=== PATIENT | male | born 2000 | race Hispanic/Latino ===

== ENCOUNTER 2018-04-15 08:45 | Emergency (ER) | payer OTHER ==
[2018-04-15] MEDS ORDERED: ONDANSETRON 4 MG/2 ML VIAL ONE (09:20)
[2018-04-15] MEDS ORDERED: MORPHINE 4 MG/ML SYR ONE (09:20)
[2018-04-15] MEDS ORDERED: NA CHLORIDE 0.9% 1,000 ML ONE ×2 (09:20→11:07)
[2018-04-15 09:43] LABS: Absolute Lymphocytes (CBC) 1.8 K/uL (0.7-4.9); Absolute Monocytes 0.3 K/uL (0.1-1.3); Absolute Neutrophil 3.7 K/uL (1.8-8.0); Basophils % 0.4 % (0-1.3); Eosinophils % 0.7 % (0-4.4); Hematocrit 41.5 % (39.6-49.0); Lymphocytes % 31.2 % (15.3-44.8); MCH 31.5 pg (27.0-35.0); MCV 90.6 fL (80-100); MPV 10.1 fL (7.6-11.3); Monocytes % 5.6 % (3.3-12.3); RBC Red Blood Cell Count 4.58 M/uL (4.33-5.43)
[2018-04-15 09:51] LABS: ALT/SGPT 27 U/L (12-78); AST/SGOT 13 U/L (15-37); Albumin 3.9 g/dL (3.4-5.0); Alkaline Phosphatase 112 U/L (45-117); BUN Blood Urea Nitrogen 7 mg/dL (7-18); Bicarbonate 28 mmol/L (21-32); Bilirubin Direct 0.1 mg/dL (0-0.2); Bilirubin Total 0.4 mg/dL (0.2-1.0); Glucose Level 105 mg/dL (74-106); Lipase 59 U/L (73-393); Potassium 4.2 mmol/L (3.5-5.1); Protein, Total 7.2 g/dL (6.4-8.2); Sodium Level 139 mmol/L (136-145)
--- NOTE | 2018-04-15 10:18 | RAD REPORT ---
EXAM DESCRIPTION: RAD - Chest Single View - 04/15/2018 9:33 am CLINICAL HISTORY: Abdominal distention COMPARISON: May 2008 TECHNIQUE: AP portable chest image was obtained 0924 hours . FINDINGS: Lungs are clear. Heart size is upper normal. Vasculature within normal limits. Heart size is stable. No measurable pleural effusion and no pneumothorax. No acute bony abnormality seen. No acu te aortic findings suspected. IMPRESSION: No acute cardiopulmonary process. No suspicious change from comparison.
--- NOTE | 2018-04-15 11:47 | RAD REPORT ---
EXAM DESCRIPTION: CT - Angio Aorta For Dissection - 04/15/2018 11:26 am CLINICAL HISTORY: Abdominal pain, abdominal distention, back pain COMPARISON: None. TECHNIQUE: Dynamically enhanced 3 mm thick images of the chest, abdomen, and upper pelvis were obtai andrey during administration of approximately 150mL Isovue 370 IV contrast. Sagittal and coronal reconst ruction images were generated using MIP and reviewed. Exam utilizes a protocol to evaluate entire cou rse of the aorta. All CT scans are performed using dose optimization technique as appropriate and may include automated exposure control or mA/KV adjustment according to patient size. FINDINGS: Aorta is normal in diameter with no dissection or other acute aortic findings. Reconstruct ion images show no significant findings. Pulmonary arteries are normal as well. No cardiomegaly, pericardial thickening or pericardial effusio n. No mass or infiltrate in the lung parenchyma. No pleural thickening, pleural effusion or pneumothorax . No abnormal mediastinal or hilar mass or lymphadenopathy seen. No chest wall mass or abnormal axillar y lymphadenopathy. Celiac, SMA and renal arteries show no suspicious findings. Patient has normal variant retroaortic le ft renal vein. Solid abdominal viscera and bowel show no significant findings. The appendix is ident ified and normal. Colon is mostly decompressed. Mild mucosal level inflammatory bowel changes can be occult on CT imaging. A few small mesenteric lymph nodes are seen centrally and in the right lower qu adrant. No mass or abnormal lymphadenopathy. No free air, free fluid or inflammatory stranding. No u rinary bladder abnormality. Prostate gland and seminal vesicles are normal range. IMPRESSION: Negative CT scan of the aorta. No appendicitis findings. Patient has a few small mesenteric lymph nodes that could indicate mesenter ic adenitis or a mild nonspecific enteritis.
--- NOTE | 2018-04-15 12:22 | ER ---
Nurse's Notes [facility] Name: Keny Kyle Age: 17 yrs Sex: Male : 2000 Arrival Date: 04/15/2018 Time: 08:50 Bed 7 Private MD: None, None Diagnosis: Abdominal tenderness;Constipation;Nonspecific mesenteric lymphadenitis Presentation: 04/15 08:57 Presenting complaint: Patient states: RUQ pain that began Sunday. Pt states "I was aa5 constipated so I took a laxative and I had diarrhea Sunday and Sunday and yesterday I had a normal bowel movement but I am still hurting". Pt denies Nausea and vomiting. 08:57 Transition of care: patient was not received from another setting of care. Onset of aa5 symptoms was March 2018. Risk Assessment: Do you want to hurt yourself or someone else? Patient reports no desire to harm self or others. Initial Sepsis Screen: Does the patient meet any 2 criteria? No. Patient's initial sepsis screen is negative. Does the patient have a suspected source of infection? No. Patient's initial sepsis screen is negative. Care prior to arrival: None. 08:57 Method Of Arrival: Ambulatory aa5 08:57 Acuity: MARI 3 aa5 Historical: - Allergies: 09:00 No Known Allergies; aa5 - Home Meds: 09:00 None [Active]; aa5 - PMHx: 09:00 None; aa5 - PSHx: 09:00 None; aa5 - Immunization history:: Adult Immunizations up to date. - Social history:: Smoking status: Patient/guardian denies using tobacco. - Ebola Screening: : No symptoms or risks identified at this time. - Family history:: not pertinent. Screenin:02 Abuse screen: Denies threats or abuse. Nutritional screening: No deficits noted. aa5 Tuberculosis screening: No symptoms or risk factors identified. Fall Risk None identified. Assessment: 09:03 General: Appears comfortable, Behavior is calm, cooperative. Pain: Complains of pain in aa5 right upper quadrant Pain does not radiate. Pain currently is 8 out of 10 on a pain scale. Quality of pain is described as aching, sharp, Pain began 2-3 days ago. Is intermittent. Neuro: Level of Consciousness is awake, alert, obeys commands, Oriented to person, place, time, situation. Cardiovascular: Heart tones S1 S2 present Rhythm is regular. Respiratory: Airway is patent Respiratory effort is even, unlabored, Respiratory pattern is regular, symmetrical. GI: Abdomen is round non-distended, Last BM was April 14, 2018. Bowel sounds present X 4 quads. Abd is soft X 4 quads Abdomen is tender to palpation in right upper quadrant Patient currently denies nausea, vomiting. : No signs and/or symptoms were reported regarding the genitourinary system. EENT: No signs and/or symptoms were reported regarding the EENT system. Derm: Skin is pink, warm \\T\\ dry. Musculoskeletal: Range of motion: intact in all extremities. 09:10 Reassessment: Pt's care will be continued by Luis Manuel Calderon RN. aa5 09:31 Reassessment: xray at bedside at this time. sg 09:43 Reassessment: ultrasound at bedside at this time. sg 10:50 Reassessment: Patient appears in no apparent distress at this time. Patient and/or sg family updated on plan of care and expected duration. Pain level reassessed. Patient is alert, oriented x 3, equal unlabored respirations, skin warm/dry/pink. strict bed rest precautions implemented, pt and pt family/friends educated, pt and pt family/friends report understanding. Vital Signs: 08:59 BP 140 / 72; Pulse 53; Resp 18 S; Temp 98.6(O); Pulse Ox 100% on R/A; Weight 116.98 kg aa5 (M); Height 5 ft. 9 in. (175.26 cm) (R); Pain 8/10; 12:19 BP 108 / 55; Pulse 66; Resp 20; Temp 97.9; Pulse Ox 100% ; lt1 08:59 Body Mass Index 38.08 (116.98 kg, 175.26 cm) aa5 ED Course: 08:50 Patient arrived in ED. mr 08:51 None, None is Private Physician. mr 08:59 Arm band placed on Patient placed in an exam room, on a stretcher. aa5 08:59 Patient has correct armband on for positive identification. Placed in gown. Bed in low aa5 position. Call light in reach. Side rails up X 1. 09:00 Vickey Paul MD is Attending Physician. [facility] 09:02 Triage completed. aa5 09:09 Primary Nurse role handed off by Claudia Aldana RN sg 09:09 Luis Manuel Calderon, RN is Primary Nurse. sg 09:10 Missed attempt(s): 20 gauge in right antecubital area. Bleeding controlled, band aid sg applied, catheter tip intact. 09:15 Initial lab(s) drawn, by me, sent to lab. Inserted saline lock: 20 gauge in left sg antecubital area, using aseptic technique. Blood collected. 09:31 Chest Single View XRAY In Process Unspecified. EDMS 09:51 US Abdomen Limited In Process Unspecified. EDMS 10:05 CT pt finished PO contrast, spoke with Rocio. sg 11:[address] Scan. sg 11:[address] mw3 11:27 CT Aorta for Dissection In Process Unspecified. EDMS 12:21 Samantha Saucedo MD is Referral Physician. petrona 13:20 No provider procedures requiring assistance completed. IV discontinued, intact, sg bleeding controlled, No redness/swelling at site. Pressure dressing applied. Administered Medications: 09:00 Drug: NS 0.9% 1000 ml Route: IV; Rate: 1 bolus; Site: left antecubital; sg 09:20 Drug: morphine 4 mg Route: IVP; Site: left antecubital; sg 09:20 Drug: Zofran 4 mg Route: IVP; Site: left antecubital; sg 11:04 Drug: NS 0.9% 1000 ml Route: IV; Rate: 1 bolus; Site: left antecubital; sg Outcome: 12:21 Discharge ordered by MD. petrona 13:20 Discharged to home ambulatory, with family. sg 13:20 Condition: good 13:20 Discharge instructions given to patient, Instructed on discharge instructions, follow up and referral plans. safety practices, Demonstrated understanding of instructions, follow-up care, medications, Prescriptions given X 2. 13:22 Patient left the ED. ss Signatures: Dispatcher [employer] EDMS Luis Manuel Calderon, Vickey Garces RN, MD MD cha Rivera, Mary mr Claudia Aldana, JURGEN SEAMAN aa5 Lucero New RN RN Hailee Pinto mw3 Sara, Allison lt1 Corrections: (The following items were deleted from the chart) 09:29 09:20 Zofran 4 mg IVP in right antecubital sg sg 16:20 08:59 Claudia Aldana, RN is Primary Nurse. aa5 aa5
--- NOTE | 2018-04-15 12:22 | EDPHYS ---
Physician Documentation [facility] Name: Keny Kyle Age: 17 yrs Sex: Male : 2000 Arrival Date: 04/15/2018 Time: 08:50 Bed 7 Private MD: None, None ED Physician Vickey Paul HPI: 04/15 09:05 This 17 yrs old Male presents to ER via Ambulatory with complaints of Flank petrona Pain. 09:05 The patient complains of pain in the right mid back. The pain does not radiate. petrona 09:06 The patient presents with abdominal pain in the upper abdomen, abdominal distention in petrona the upper abdomen. Onset: The symptoms/episode began/occurred 2 day(s) ago. Onset: The symptoms/episode began/occurred 2 day(s) ago. Modifying factors: The symptoms are alleviated by remaining still, the symptoms are aggravated by movement, palpation/percussion, food/fluids. The symptoms do not radiate. Associated signs and symptoms: The patient has no apparent associated signs or symptoms. Historical: - Allergies: 09:00 No Known Allergies; aa5 - Home Meds: 09:00 None [Active]; aa5 - PMHx: 09:00 None; aa5 - PSHx: 09:00 None; aa5 - Immunization history:: Adult Immunizations up to date. - Social history:: Smoking status: Patient/guardian denies using tobacco. - Ebola Screening: : No symptoms or risks identified at this time. - Family history:: not pertinent. ROS: 09:06 Constitutional: Negative for fever, chills, and weight loss, Eyes: Negative for injury, petrona pain, redness, and discharge, ENT: Negative for injury, pain, and discharge, Neck: Negative for injury, pain, and swelling, Cardiovascular: Negative for chest pain, palpitations, and edema, Respiratory: Negative for shortness of breath, cough, wheezing, and pleuritic chest pain, Back: Negative for injury and pain, : Negative for injury, bleeding, discharge, and swelling, MS/Extremity: Negative for injury and deformity, Skin: Negative for injury, rash, and discoloration, Neuro: Negative for headache, weakness, numbness, tingling, and seizure, Psych: Negative for depression, anxiety, suicide ideation, homicidal ideation, and hallucinations, Allergy/Immunology: Negative for hives, rash, and allergies, Endocrine: Negative for neck swelling, polydipsia, polyuria, polyphagia, and marked weight changes, Hematologic/Lymphatic: Negative for swollen nodes, abnormal bleeding, and unusual bruising. 09:06 Abdomen/GI: Positive for abdominal pain, of the right upper quadrant. Exam: 09:06 Constitutional: This is a well developed, well nourished patient who is awake, alert, petrona and in no acute distress. Head/Face: Normocephalic, atraumatic. Eyes: Pupils equal round and reactive to light, extra-ocular motions intact. Lids and lashes normal. Conjunctiva and sclera are non-icteric and not injected. Cornea within normal limits. Periorbital areas with no swelling, redness, or edema. ENT: Nares patent. No nasal discharge, no septal abnormalities noted. Tympanic membranes are normal and external auditory canals are clear. Oropharynx with no redness, swelling, or masses, exudates, or evidence of obstruction, uvula midline. Mucous membranes moist. Neck: Trachea midline, no thyromegaly or masses palpated, and no cervical lymphadenopathy. Supple, full range of motion without nuchal rigidity, or vertebral point tenderness. No Meningismus. Chest/axilla: Normal chest wall appearance and motion. Nontender with no deformity. No lesions are appreciated. Cardiovascular: Regular rate and rhythm with a normal S1 and S2. No gallops, murmurs, or rubs. Normal PMI, no JVD. No pulse deficits. Abdomen/GI: Soft, non-tender, with normal bowel sounds. No distension or tympany. No guarding or rebound. No evidence of tenderness throughout. Back: No spinal tenderness. No costovertebral tenderness. Full range of motion. Male : Normal genitalia with no discharge or lesions. Skin: Warm, dry with normal turgor. Normal color with no rashes, no lesions, and no evidence of cellulitis. MS/ Extremity: Pulses equal, no cyanosis. Neurovascular intact. Full, normal range of motion. Neuro: Awake and alert, GCS 15, oriented to person, place, time, and situation. Cranial nerves II-XII grossly intact. Motor strength 5/5 in all extremities. Sensory grossly intact. Cerebellar exam normal. Normal gait. Psych: Awake, alert, with orientation to person, place and time. Behavior, mood, and affect are within normal limits. 09:06 Abdomen/GI: Inspection: distension, Bowel sounds: normal, Palpation: mild abdominal tenderness, in the epigastric area and right upper quadrant, Liver: no appreciated palpable abnormalities, Hernia: not appreciated. 09:54 Musculoskeletal/extremity: DVT Exam: No signs of deep vein thrombosis. no pain, no petrona swelling, no tenderness, negative Homans' sign noted on exam, no appreciated bluish discoloration, no erythema, no increased warmth. Vital Signs: 08:59 BP 140 / 72; Pulse 53; Resp 18 S; Temp 98.6(O); Pulse Ox 100% on R/A; Weight 116.98 kg aa5 (M); Height 5 ft. 9 in. (175.26 cm) (R); Pain 8/10; 12:19 BP 108 / 55; Pulse 66; Resp 20; Temp 97.9; Pulse Ox 100% ; lt1 08:59 Body Mass Index 38.08 (116.98 kg, 175.26 cm) aa5 MDM: 09:00 Patient medically screened. [facility] 09:11 Data reviewed: vital signs, nurses notes, lab test result(s), radiologic studies, plain petrona films, ultrasound. 04/15 09:05 Order name: Basic Metabolic Panel; Complete Time: 09:53 [facility] 04/15 09:05 Order name: CBC with Diff; Complete Time: 09:53 [facility] 04/15 09:05 Order name: Creatinine for Radiology; Complete Time: 09:53 [facility] 04/15 09:05 Order name: Hepatic Function; Complete Time: 09:53 [facility] 04/15 09:05 Order name: Lipase; Complete Time: 09:53 [facility] 04/15 09:54 Order name: D-Dimer; Complete Time: 12:17 [facility] 04/15 09:05 Order name: Chest Single View XRAY; Complete Time: 10:44 [facility] 04/15 09:05 Order name: US Abdomen Limited [facility] 04/15 11:00 Order name: CT Aorta for Dissection; Complete Time: 12:17 [facility] 04/15 09:05 Order name: IV Saline Lock; Complete Time: 09:29 [facility] 04/15 09:05 Order name: Labs collected and sent; Complete Time: 09:29 [facility] Administered Medications: 09:00 Drug: NS 0.9% 1000 ml Route: IV; Rate: 1 bolus; Site: left antecubital; sg 09:20 Drug: morphine 4 mg Route: IVP; Site: left antecubital; sg 09:20 Drug: Zofran 4 mg Route: IVP; Site: left antecubital; sg 11:04 Drug: NS 0.9% 1000 ml Route: IV; Rate: 1 bolus; Site: left antecubital; sg Disposition: 04/15/18 12:21 Discharged to Home. Impression: Abdominal tenderness, Constipation, Nonspecific mesenteric lymphadenitis. - Condition is Stable. - Discharge Instructions: Abdominal Pain, Adult, Constipation, Adult, Abdominal Pain, Adult, [id number]. - Prescriptions for Bentyl 20 mg Oral Tablet - take 1 tablet by ORAL route every 6 hours As needed; 20 tablet. Pepcid 20 mg Oral Tablet - take 1 tablet by ORAL route every 12 hours for 10 days; 20 tablet. - Work release form, Medication Reconciliation Form, Thank You Letter, Antibiotic Education, Prescription Opioid Use form. - Follow up: Private Physician; When: 2 - 3 days; Reason: Recheck today's complaints, Continuance of care, Re-evaluation by your physician. Follow up: Samantha Saucedo; When: 2 - 3 days; Reason: Recheck today's complaints, Re-evaluation by your physician. - Problem is new. - Symptoms have improved. Signatures: Dispatcher [employer] EDWY Luis Manuel Calderon, RN RN Vickey Palma MD MD cha Calderon, Audri, RN RN aa5 Lucero New RN RN ss Corrections: (The following items were deleted from the chart) 11:08 09:54 Abdomen Pelvis W Con+CT.RAD.BRZ ordered. [facility] 13:22 12:21 04/15/2018 12:21 Discharged to Home. Impression: Abdominal tenderness; ss Constipation; Nonspecific mesenteric lymphadenitis. Condition is Stable. Discharge Instructions: Abdominal Pain, Adult, Constipation, Adult, Abdominal Pain, Adult, [id number]. Prescriptions for Bentyl 20 mg Oral Tablet - take 1 tablet by ORAL route every 6 hours As needed; 20 tablet, Pepcid 20 mg Oral Tablet - take 1 tablet by ORAL route every 12 hours for 10 days; 20 tablet. and Forms are Medication Reconciliation Form, Thank You Letter, Antibiotic Education, Prescription Opioid Use. Follow up: Private Physician; When: 2 - 3 days; Reason: Recheck today's complaints, Continuance of care, Re-evaluation by your physician. Follow up: Samantha Saucedo; When: 2 - 3 days; Reason: Recheck today's complaints, Re-evaluation by your physician. Problem is new. Symptoms have improved. petrona
[2018-04-15 13:37] VITALS: O2SAT 100
[2018-04-15 13:38] VITALS: BP 108/55; TEMP 97.9
== END 2018-04-15 13:22 | disposition home or self-care (01) ==
LOC: ER 08:45
DX: I88.0 Nonspecific mesenteric lymphadenitis (principal); K59.00 Constipation, unspecified
CPT/HCPCS: 36415; 71045; 71275; 74175; 76705; 80048; 80076; 83690; 85025; 85379; 96374; 96375; 99284; J2405; J7030; Q9967

== ENCOUNTER 2019-11-26 19:05 | Emergency (ER) | payer OTHER ==
[2019-11-26] MEDS ORDERED: SILVER SULFADIAZINE 1% 25 GM TOP ONE (20:17)
[2019-11-26] MEDS ORDERED: FENTANYL CITR 100 MCG/2 ML ONE (20:19)
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
--- NOTE | 2019-11-26 20:39 | EDPHYS ---
Physician Documentation [facility] Name: Keny Kyle Age: 19 yrs Sex: Male : 2000 Arrival Date: 11/26/2019 Time: 19:10 Bed 25 Private MD: ED Physician Az De Guzman HPI: 11/25 21:46 This 19 yrs old Male presents to ER via Wheelchair with complaints of Foot snw Injury, lots of pain. 21:46 The patient presents with a crush injury, from a heavy object, an injury. The snw complaints affect the left lateral ankle and lateral aspect of left foot. Context: [place], the patient is not able to bear weight, the patient is not able to ambulate. Onset: The symptoms/episode began/occurred suddenly, just prior to arrival. Associated signs and symptoms: The patient has no apparent associated signs or symptoms. Severity of symptoms: At their worst the symptoms were moderate, severe. The patient has not experienced similar symptoms in the past. The patient has not recently seen a physician. Historical: - Allergies: 19:35 No Known Allergies; ca1 - Home Meds: 19:35 None [Active]; ca1 - PMHx: 19:35 None; ca1 - PSHx: 19:35 None; ca1 - Immunization history:: Adult Immunizations up to date, Last tetanus immunization: unknown. - Social history:: Smoking status: Patient denies any tobacco usage or history of. ROS: 21:18 Constitutional: Negative for fever, chills, and weight loss, Eyes: Negative for injury, snw pain, redness, and discharge, ENT: Negative for injury, pain, and discharge, Neck: Negative for injury, pain, and swelling, Cardiovascular: Negative for chest pain, palpitations, and edema, Respiratory: Negative for shortness of breath, cough, wheezing, and pleuritic chest pain, Abdomen/GI: Negative for abdominal pain, nausea, vomiting, diarrhea, and constipation, Back: Negative for injury and pain, : Negative for injury, bleeding, discharge, and swelling, Skin: Negative for injury, rash, and discoloration, Neuro: Negative for headache, weakness, numbness, tingling, and seizure. 21:18 MS/extremity: Positive for injury or acute deformity, decreased range of motion, pain, swelling, of the left foot and left ankle. Exam: 21:14 Constitutional: This is a well developed, well nourished patient who is awake, alert, snw and in no acute distress. Head/Face: Normocephalic, atraumatic. Eyes: Pupils equal round and reactive to light, extra-ocular motions intact. Lids and lashes normal. Conjunctiva and sclera are non-icteric and not injected. Cornea within normal limits. Periorbital areas with no swelling, redness, or edema. ENT: Nares patent. No nasal discharge, no septal abnormalities noted. Tympanic membranes are normal and external auditory canals are clear. Oropharynx with no redness, swelling, or masses, exudates, or evidence of obstruction, uvula midline. Mucous membranes moist. Neck: Trachea midline, no thyromegaly or masses palpated, and no cervical lymphadenopathy. Supple, full range of motion without nuchal rigidity, or vertebral point tenderness. No Meningismus. Chest/axilla: Normal chest wall appearance and motion. Nontender with no deformity. No lesions are appreciated. Cardiovascular: Regular rate and rhythm with a normal S1 and S2. No gallops, murmurs, or rubs. Normal PMI, no JVD. No pulse deficits. Respiratory: Lungs have equal breath sounds bilaterally, clear to auscultation and percussion. No rales, rhonchi or wheezes noted. No increased work of breathing, no retractions or nasal flaring. Abdomen/GI: Soft, non-tender, with normal bowel sounds. No distension or tympany. No guarding or rebound. No evidence of tenderness throughout. Back: No spinal tenderness. No costovertebral tenderness. Full range of motion. Neuro: Awake and alert, GCS 15, oriented to person, place, time, and situation. Cranial nerves II-XII grossly intact. Motor strength 5/5 in all extremities. Sensory grossly intact. Cerebellar exam normal. Normal gait. Psych: Awake, alert, with orientation to person, place and time. Behavior, mood, and affect are within normal limits. 21:14 Skin: Appearance: normal except for affected area, injury, abrasion(s), small abrasion noted, of the left ankle, contusion(s), that are deep, of the left foot. Vital Signs: 19:33 BP 134 / 103; Pulse 92; Resp 15 S; Temp 99.1(TE); Pulse Ox 99% on R/A; Weight 120.2 kg ca1 (R); Height 5 ft. 10 in. (177.80 cm) (R); Pain 10/10; 21:02 BP 146 / 88; Pulse 70; Resp 18; Temp 99(TE); Pulse Ox 98% ; Pain 9/10; ks7 19:33 Body Mass Index 38.02 (120.20 kg, 177.80 cm) ca1 MDM: 20:21 Patient medically screened. snw 21:11 Data reviewed: vital signs, nurses notes. Data interpreted: Pulse oximetry: on room air snw is 98 %. Interpretation: normal. Counseling: I had a detailed discussion with the patient and/or guardian regarding: the historical points, exam findings, and any diagnostic results supporting the discharge/admit diagnosis, radiology results, the need for outpatient follow up, to return to the emergency department if symptoms worsen or persist or if there are any questions or concerns that arise at home. Special discussion: I have referred the patient to see his PCP for further evaluation of high blood pressure. Based on the history and exam findings, there is no indication for further emergent testing or inpatient evaluation. I discussed with the patient/guardian the need to see the orthopedic surgeon for further evaluation of the symptoms. I discussed with the patient/guardian the need to see the primary care provider for further evaluation of the symptoms. ED course: risk for compartment syndrome discussed. Pt voices understanding. 11/25 19:38 Order name: Foot Left 3 View XRAY; Complete Time: 21:11 ca1 11/25 19:38 Order name: Ankle Left 3 View XRAY; Complete Time: 21:11 ca1 11/25 19:51 Order name: Wound Care; Complete Time: 22:20 snw 11/25 20:25 Order name: Posterior Orthoglass Ankle Splint; Complete Time: 22:20 snw 11/25 20:25 Order name: Crutches; Complete Time: 22:20 snw 11/25 20:25 Order name: Crutch Training; Complete Time: 22:19 snw Administered Medications: 20:10 Drug: fentaNYL (PF) 50 mcg Route: IVP; Site: left antecubital; ls4 20:30 Follow up: Response: No adverse reaction; Marked relief of symptoms ls4 20:10 Drug: Silvadene Cream 1 % 1 application Route: Topical; Site: affected area; ls4 21:01 Drug: [place] 10 mg-325 mg 1 tabs Route: PO; ks7 21:28 Follow up: Response: No adverse reaction; Marked relief of symptoms ls4 21:01 Drug: Motrin 800 mg Route: PO; ks7 21:20 Follow up: Response: No adverse reaction ls4 23:24 Not Given (Patient Refused): Tetanus-Diphtheria Toxoid Adult 0.5 ml IM once ls4 Disposition: 11/26 00:02 Co-signature as Attending Physician, Az De Guzman MD. rn Disposition: 11/26/19 20:38 Discharged to Home. Impression: Fracture of unspecified metatarsal bone(s), left foot, Displaced fracture of navicular [scaphoid] of left foot. - Condition is Stable. - Discharge Instructions: Compartment Syndrome of the Foot, Foot Contusion, Crutch Use, Foot Sprain, Metatarsal Fracture, RICE for Routine Care of Injuries, Tarsal Navicular Fracture, Cryotherapy, Crush Injury of the Foot. - Prescriptions for Mobic 7.5 mg Oral Tablet - take 1 tablet by ORAL route every 12 hours take with food; 20 tablet. Ultram 50 mg Oral Tablet - take 1 tablet by ORAL route every 6 hours As needed; 12 tablet. - Medication Reconciliation Form, Thank You Letter, Antibiotic Education, Prescription Opioid Use form. - Follow up: Luis Manuel Aaron MD; When: 1 - 2 days; Reason: Recheck today's complaints, Continuance of care. Follow up: Emergency Department; When: As needed; Reason: Worsening of condition. - Notes: Return immediately for any circulatory concern of left foot/ankle Signatures: Dispatcher [employer] EDMS Luis Manuel Calderon RN Zelda Copeland, RECONCILIATION MANAGER-C RECONCILIATION MANAGER-Csnw Az De Guzman MD MD rn Stewart, Lisa, RN RN ls4 Ilsa Hall RN RN ca1 Songcuan, Kathleen, RN RN ks7 Corrections: (The following items were deleted from the chart) 11/25 23:26 20:38 11/26/2019 20:38 Discharged to Home. Impression: Fracture of unspecified sg metatarsal bone(s), left foot; Displaced fracture of navicular [scaphoid] of left foot. Condition is Stable. Forms are Medication Reconciliation Form, Thank You Letter, Antibiotic Education, Prescription Opioid Use. Follow up: Luis Manuel Aaron; When: 1 - 2 days; Reason: Recheck today's complaints, Continuance of care. Follow up: Emergency Department; When: As needed; Reason: Worsening of condition. snw
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
--- NOTE | 2019-11-26 21:03 | RAD REPORT ---
EXAM DESCRIPTION: RAD - Ankle Left 3 View - 11/26/2019 8:37 pm CLINICAL HISTORY: Pain;Swelling COMPARISON: No comparisons FINDINGS: Distal tibia and fibula are intact. Tibiotalar joint space is normal. Suspected fracture o f the medial margin of the navicular bone is present, detailed further on the foot report. Prominent swelling is present in the anterior and medial soft tissues of the foot and ankle. No forei gn body seen. No joint space narrowing. IMPRESSION: Prominent anterior and medial soft tissue swelling with no fracture at the ankle joint. Suspected fracture of the medial margin navicular bone.
[2019-11-26] MEDS ORDERED: IBUPROFEN 400 MG TAB ONE (21:08)
[2019-11-26] MEDS ORDERED: HYDROCODONE/APAP 10/325 TAB ONE (21:08)
[2019-11-26 23:35] VITALS: BP 146/88; TEMP 99; O2SAT 98
[2019-11-30] MEDS ORDERED: FENTANYL CITR 100 MCG/2 ML ONE (15:18)
[2019-11-30] MEDS ORDERED: HYDROMORPHONE HCL 1 MG/ML INJ ONE (16:56)
== END 2019-11-26 23:26 | disposition home or self-care (01) ==
LOC: ER 19:05
PROC: 2W3RX1Z Immobilization of Left Lower Leg using Splint (ICD-10-PCS; principal; 2019-11-26)
DX: S92.252A Displaced fracture of navicular [scaphoid] of left foot, initial encounter for closed fracture (principal); S92.302A Fracture of unspecified metatarsal bone(s), left foot, initial encounter for closed fracture; X58.XXXA Exposure to other specified factors, initial encounter; Y93.89 Activity, other specified; Y92.832 Beach as the place of occurrence of the external cause
CPT/HCPCS: 73630; 73610; 96374; 99284; 29515; J3010

== ENCOUNTER 2020-03-20 20:18 | Emergency (ER) | payer OTHER ==
--- OUTSIDE RECORDS SUMMARY | 2020-03-20 20:20 | XMS REPORT | Continuity of Care Document ---
:2000 Author Organization [facility] t Address [address] [place] [address] Care Team Providers Name Role Phone Samia Sequeira MD Attending Clinician Problems This patient has no known problems. Allergies, Adverse Reactions, Alerts This patient has no known allergies or adverse reactions. Medications This patient has no known medications. Procedures This patient has no known procedures. Encounters Start End Encounter Admission Attending Care Care Encounter Source Date/Time Date/Time Type Type Clinicians Facility Department ID 2020-02-12 2020-02-12 [facility] [id number] 09:48:20 23:59:00 Encounter Lei Gracia Girl [employer] Dress [id number] Surgical [id number] Specialti [id number] es [address] 2020-02-12 2020-02-12 Office [facility] [id number] 09:17:13 09:57:42 Visit Lei [facility] [id number] Surgical [id number] Specialti [id number] es [address] [place] Results This patient has no known results.
--- OUTSIDE RECORDS SUMMARY | 2020-03-20 20:21 | XMS REPORT | Summary of Care ---
:2000 Author Organization [facility] Address [address] [place] [address] Care Team Providers Name Role Phone Pcp, Does Not Have A Primary Care Provider Reason for Referral Radiology Services (Routine) Status Reason Specialty Diagnoses / Referred By Referred To Procedures Contact Contact New Request Diagnostic Diagnoses Closed avulsion fracture of navicular bone of foot, left, initial encounter Lei Sequeira Radiology Procedures XR FOOT <3 VW LEFT MD Samia [address] [place] [address] [place] [address] Reason for Visit Reason Comments Follow-up Closed avulsion fx of navicu lar bone of left foot Encounter Details Date Type Department Care Team Description 02/12/2020 Office Visit [facility] Orthopaedic Lei Sequeira losed avulsion Surgery- Polly Gracia MD fracture of navicular [address], [address] bone of foot, left, [address] [place] [address] [place], [place] (Primary Dx) [phone] Allergies No Known Allergiesdocumented as of this encounter (statuses as of 02/12/2020) Medications Medication Sig Dispensed Refills Start Date End Date Status meloxicam 7.5 mg TOME VENESSA TABLETA 0 11/27/2019 Active tablet POR V A ORAL EVERY 12 HOURS TAKE WITH FOOD traMADol 50 mg tablet TOME VENESSA TABLETA 0 11/27/2019 Active POR V A ORAL EVERY 6 HOURS NEEEDED acetaminophen-codeine Take 1 tablet by 40 tablet 0 12/02/2019 Active (TYLENOL-CODEINE #3) mouth every 4 300-30 mg (four) hours as tabletIndications: needed for Pain acute pain (scale 4-6) or Pain (scale 7-10). Indications: acute pain documented as of this encounter (statuses as of 02/12/2020) Active Problems No known active problemsdocumented as of this encounter (statuses as of 02/12/2020) Social History Tobacco Use Types Packs/Day Years Used Date Unknown If Ever Smoked Smokeless Tobacco: Never Used Comments: weed Sex Assigned at Date Recorded Not on file COVID-19 Exposure Response Date Recorded In the last month, have you been in contact with No / Unsure 02/12/2020 9:19 AM CDT someone who was confirmed or suspected to have Coronavirus / COVID-19? documented as of this encounter Last Filed Vital Signs Vital Sign Reading Time Taken Comments Blood Pressure 129/84 02/12/2020 9:27 AM CDT Pulse 88 02/12/2020 9:24 AM CDT Temperature - - Respiratory Rate - - Oxygen Saturation - - Inhaled Oxygen Concentration - - Weight 122.5 kg (270 lb) 02/12/2020 9:24 AM CDT Height 175.3 cm (5' 9") 02/12/2020 9:24 AM CDT Body Mass Index 39.87 02/12/2020 9:24 AM CDT documented in this encounter Progress Notes Lei Sequeira MD - 02/12/2020 9:30 AM CDT Cc: Chief Complaint Patient presents with Follow-up Closed avulsion fx of navicular bone of left foot Follow up Closed avulsion fx of navicular bone of the left foot DOI 11/26/2019 Keny Kyle is a 19 year old male. FOLLOW-UP closed avulsion fx of navicular bone of the left foot. Arrived [facility] with crutches and boot. Allergies Keny has No Known Allergies. Medications Outpatient Medications Prior to Visit Medication Sig Dispense Refill acetaminophen-codeine (TYLENOL-CODEINE #3) 300-30 mg tablet Take 1 tablet by mouth every 4 (four) hours as needed for Pain (scale 4-6) or Pain (scale 7-10). Indications: acute pain 40 tablet 0 meloxicam 7.5 mg tablet TOME VENESSA TABLETA POR V A ORAL EVERY 12 HOURS TAKE WITH FOOD traMADol 50 mg tablet TOME VENESSA TABLETA POR V A ORAL EVERY 6 HOURS NEEEDED No facility-administered medications prior to visit. Histories History reviewed. No pertinent past medical history. History reviewed. No pertinent surgical history. Social History Socioeconomic History Marital status: Single Spouse name: Not on file Number of children: Not on file Years of education: Not on file Highest education level: Not on file Occupational History Not on file Social Needs Financial resource strain: Not on file Food insecurity Worry: Not on file Inability: Not on file Transportation needs Medical: Not on file Non-medical: Not on file Tobacco Use Smoking status: Unknown If Ever Smoked Smokeless tobacco: Never Used Tobacco comment: weed Substance and Sexual Activity Alcohol use: Not on file Drug use: Not on file Sexual activity: Not on file Lifestyle Physical activity Days per week: Not on file Minutes per session: Not on file Stress: Not on file Relationships Social connections Talks on phone: Not on file Gets together: Not on file Attends tenriism service: Not on file Active member of club or organization: Not on file Attends meetings of clubs or organizations: Not on file Relationship status: Not on file Intimate partner violence Fear of current or ex partner: Not on file Emotionally abused: Not on file Physically abused: Not on file Forced sexual activity: Not on file Other Topics Concern Not on file Social History Narrative Not on file History reviewed. No pertinent family history. Review of Systems Constitutional: Negative. HENT: Negative. Eyes: Negative. Respiratory: Negative. Breasts: Negative. Cardiovascular: Negative. Gastrointestinal: Negative. Genitourinary: Negative. Musculoskeletal: Positive for joint swelling. Skin: Negative. Neurological: Negative. Psychiatric/Behavioral: Negative. Endocrine: Endocrine negative Vital Signs BP (!) 137/91 | Pulse 88 | Ht 69" (175.3 cm) | Wt 122.5 kg (270 lb) | BMI 39.87 kg/m Physical Exam Nursing note reviewed. Exam conducted with a electric tripper machine operator present. Musculoskeletal: Left foot: Decreased range of motion. Tenderness, bony tenderness, swelling and laceration present. Comments: Fracture blisters noted The wound is well approximated. It is healing nicely. There is no drainage at this time. It is not hot to the touch no erythema no edema no purulent drainage. General: Well-developed well-nourished oriented to person place and time HEENT normocephalic atraumatic atraumatic pupils equal round reactive to light extraocular muscles intact Cervical thoracic and lumbar spine without focal deficit normal kyphosis and lordosis Chest clear to auscultation and percussion Cardiovascular regular rate and rhythm without gallop rub or murmur soft without organomegaly Normal bowel sounds Neurologic: Focal myotome or dermatomal deficits Vascular: Intact symmetrical bilateral upper and lower extremities Skin without stasis varicosities or breakdown Extremities without cyanosis clubbing or edema Lymphatics no peripheral lymphedema Psych normal mood and affect. Neurovascular function is intact. To include brisk capillary refill warm pink skin active motor function and sensory function intact. Assessment/Plan Closed avulsion fx of navicular bone of the left foot May begin TDWB and then gradually wean self into normal shoe wear. Follow up 3 weeks. documented in this encounter Plan of Treatment Date Type Specialty Care Team Description 03/04/2020 Office Visit Orthopedic Surgery Andra Sequeira MD [address] [place] [address] [phone] Health Maintenance Due Date Last Done Comments VARICELLA VACCINES (1 of 2 - 2-dose 1999 childhood series) MENINGOCOCCAL B VACCINES (1 of 2 - 2008 Risk Bexsero 2-dose series) HPV VACCINES (1 - Male 2-dose 2009 series) Depression Screening 2010 WELL CARE VISIT: 12-21 YEARS 2010 (yearly) DTaP,Tdap,and Td Vaccines (1 - 2017 Tdap) INFLUENZA VACCINE (#1) 2019 MENINGOCOCCAL VACCINE Aged Out No longer eligible based on patient's age to complete this topic PNEUMOCOCCAL 0-64 YEARS COMBINED Aged Out No longer eligible based on SERIES patient's age to complete this topic documented as of this encounter Results XR FOOT <3 VW LEFT (02/12/2020 9:48 AM CDT) Specimen Narrative Performed At This result has an attachment that is no t available. Fracture remains in stable position PACS Performing Organization Address City/State/Zipcode Phone Number PACS documented in this encounter Visit Diagnoses Diagnosis Closed avulsion fracture of navicular rivka ne of foot, left, initial encounter - Primary documented in this encounter documented as of this encounter
--- OUTSIDE RECORDS SUMMARY | 2020-03-20 20:21 | XMS REPORT | Summary of Care ---
:2000 Author Organization [facility] Address [address] [place] [address] Care Team Providers Name Role Phone Pcp, Does Not Have A Primary Care Provider Reason for Visit Radiology Services (Routine) Status Reason Specialty Diagnoses / Referred By Referred To Procedures Contact Contact New Request Diagnostic Diagnoses Closed avulsion fracture of navicular bone of foot, left, initial encounter Lei Sequeira Radiology Procedures XR FOOT <3 VW LEFT MD Samia [facility] [place] [address] Encounter Details Date Type Department Care Team Description 02/12/2020 [facility] [address] [place] [phone] Allergies No Known Allergiesdocumented as of this encounter (statuses as of 02/13/2020) Medications Medication Sig Dispensed Refills Start Date [...] as of this encounter (statuses as of 02/13/2020) Active Problems No known active problemsdocumented as of this encounter (statuses as of 02/13/2020) Social History Tobacco Use Types Packs/Day Years [...] of this encounter Last Filed Vital Signs Not on filedocumented in this encounter Plan of Treatment Date Type Specialty Care Team Description 03/04/2020 Office Visit Orthopedic Surgery Andra Sequeira MD [address] [place] [address] [phone] Health Maintenance Due Date Last Done [...] this topic documented as of this encounter Procedures Procedure Name Priority Date/Time Associated Diagnosis Comme nts XR FOOT <3 VW LEFT Routine 02/12/2020 9:48 AM Closed avulsion Results for this CDT fracture of procedure are i n navicular bone of the result s foot, left, initial section. encounter documented in this encounter Results XR FOOT <3 VW LEFT (02/12/2020 9:48 AM CDT) Specimen Narrative Performed At This result has an attachment that is no t available. Fracture remains in stable position PACS Performing Organization Address City/State/Zipcode Phone Number PACS documented in this encounter Visit Diagnoses Diagnosis Closed avulsion fracture of navicular rivka ne of foot, left, initial encounter documented in this encounter documented as of this encounter
--- OUTSIDE RECORDS SUMMARY | 2020-03-20 20:21 | XMS REPORT | Summary of Care ---
:2000 Author Organization [facility] Address [address] [place] [address] Care Team Providers Name Role Phone Pcp, Does Not Have A Primary Care Provider Reason for Referral Radiology Services (Routine) Status Reason Specialty Diagnoses / Referred By Referred To Procedures Contact Contact New Request Diagnostic Diagnoses Closed avulsion fracture of navicular bone of foot, left, initial encounter Lei Sequeira Radiology Procedures XR FOOT <3 VW LEFT MD Samia [address] [place] [address] [place] [address] Reason for Visit Reason Comments Follow-up Closed avulsion fx of navicu lar bone of left foot Encounter Details Date Type Department Care Team Description 02/12/2020 Office Visit [facility] Orthopaedic Lei Sequeira losed avulsion Surgery- Polly Gracia MD fracture of navicular [address] [place], [address] bone of foot, left, [address] [place] [address] [place], [place] (Primary Dx) [phone] Allergies No Known Allergiesdocumented as of [...] file Gets together: Not on file Attends islam service: Not on file Active member of [...] Nursing note reviewed. Exam conducted with a employment attorney present. Musculoskeletal: Left foot: Decreased range of [...] Office Visit Orthopedic Surgery Andra Sequeira MD [address] [place] [phone] Health Maintenance Due Date Last Done [...]
[2020-03-20 22:22] LABS: Absolute Lymphocytes (CBC) 2.2 K/uL (0.7-4.9); Basophils % 0.8 % (0-1.3); Hematocrit 47.3 % (39.6-49.0); Lymphocytes % 18.6 % (15.3-44.8); MPV 9.8 fL (7.6-11.3); RBC Red Blood Cell Count 5.35 M/uL (4.33-5.43)
[2020-03-20] MEDS ORDERED: NA CHLORIDE 0.9% 1,000 ML ONE (22:28)
[2020-03-20 22:46] LABS: Protime INR 1.04
[2020-03-20 23:08] LABS: Urine Blood NEGATIVE (NEG); Urine Glucose NEGATIVE (NEG); Urine Protein NEGATIVE (NEG); Urine Specific Gravity 1.025 (1.005-1.030); Urine pH 6.5 (5.0-7.0)
[2020-03-20 23:13] LABS: ALT/SGPT 36 U/L (12-78); AST/SGOT 18 U/L (15-37); Albumin 4.5 g/dL (3.4-5.0); Alkaline Phosphatase 115 U/L (45-117); BUN Blood Urea Nitrogen 11 mg/dL (7-18); Bicarbonate 27 mmol/L (21-32); Bilirubin Direct 0.1 mg/dL (0-0.2); Bilirubin Total 0.8 mg/dL (0.2-1.0); Glucose Level 95 mg/dL (74-106); Potassium 3.3 mmol/L (3.5-5.1); Sodium Level 138 mmol/L (136-145); Troponin (Emerg Dept Use Only) < 0.02 ng/mL (0.0-0.045)
--- NOTE | 2020-03-20 23:33 | ER ---
Nurse's Notes [facility] Name: Keny Kyle Age: 19 yrs Sex: Male : 2000 Arrival Date: 03/20/2020 Time: 20:21 Bed 24 Private MD: Diagnosis: Anxiety disorder, unspecified;Palpitations;Chest pain, unspecified Presentation: 03/20 20:31 Chief complaint: Patient states: 3 days of feeling anxious, palpitations, chest ll1 pressure, N/V for 3 days. Coronavirus screen: Client denies travel out of the [place] in the last 14 days. difficulty breathing, shortness of breath, Client presents with at least one sign or symptom that may indicate coronavirus-19. Standard/surgical mask placed on the client. Ebola Screen: Patient denies travel to an Ebola-affected area in the 21 days before illness onset. Initial Sepsis Screen: Does the patient meet any 2 criteria? HR > 90 bpm. No. Patient's initial sepsis screen is negative. Does the patient have a suspected source of infection? No. Patient's initial sepsis screen is negative. Risk Assessment: Do you want to hurt yourself or someone else? Patient reports no desire to harm self or others. Onset of symptoms was March 18, 2020. 20:31 Method Of Arrival: Ambulatory ll1 20:31 Acuity: MARI 2 ll1 Historical: - Allergies: 20:33 No Known Allergies; ll1 - PMHx: 20:33 broken foot/infection; ll1 - PSHx: 20:33 None; ll1 - Immunization history:: Flu vaccine is not up to date. - Social history:: Smoking status: Patient denies any tobacco usage or history of. Screenin:05 Abuse screen: Denies threats or abuse. Denies injuries from another. Nutritional dm5 screening: No deficits noted. Tuberculosis screening: No symptoms or risk factors identified. Fall Risk None identified. Assessment: 22:05 Reassessment: pt is tearful but denies wanting to hurt himself or anyone else. Pt dm5 states he wants to feel better. Pt was anxious while I was starting the IV and drawing blood but was able to be calmed by talking about places he wanted to go or visit. General: Appears in no apparent distress. uncomfortable, Behavior is anxious. Pain: Complains of pain in abdomen. Neuro: Level of Consciousness is awake, alert, obeys commands, Oriented to person, place, time, situation. Respiratory: Airway is patent Respiratory effort is even, unlabored. GI: Reports nausea, vomiting. Derm: Skin is pink, warm \T\ dry. 23:07 Reassessment: Patient and/or family updated on plan of care and expected duration. Pain dm5 level reassessed. Patient is alert, oriented x 3, equal unlabored respirations, skin warm/dry/pink. pt is more calm at this time. Patient states feeling better. Vital Signs: 20:31 BP 141 / 97; Pulse 110; Resp 20; Temp 98.8; Pulse Ox 97% ; Weight 118.84 kg; Height 5 ll1 ft. 10 in. (177.80 cm); Pain 8/10; 23:06 BP 136 / 85; Pulse 73; Resp 20; Pulse Ox 100% ; dm5 20:31 Body Mass Index 37.59 (118.84 kg, 177.80 cm) ll1 ED Course: 20:21 Patient arrived in ED. bp1 20:33 Triage completed. ll1 20:34 Arm band placed on. ll1 20:42 EKG completed in triage. Results shown to MD. ll1 21:05 Harry Walker NP is PHCP. pm1 21:05 Mandeep Abbott MD is Attending Physician. pm1 21:42 Irene Ha, JURGEN is Primary Nurse. dm5 22:05 Patient has correct armband on for positive identification. Adult w/ patient. Door dm5 closed. Noise minimized. Lights dimmed. Warm blanket given. 22:05 Inserted saline lock: 20 gauge in right antecubital area, using aseptic technique. dm5 Blood collected. 03/21 00:11 No provider procedures requiring assistance completed. IV discontinued, intact, dm5 bleeding controlled, No redness/swelling at site. Pressure dressing applied. Administered Medications: 03/20 22:15 Drug: NS 0.9% 1000 ml Route: IV; Rate: 1000 ml; Site: right antecubital; dm5 03/21 00:14 Follow up: IV Status: Completed infusion; IV Intake: 1000ml dm5 Intake: 00:14 IV: 1000ml; Total: 1000ml. dm5 Outcome: 03/20 23:33 Discharge ordered by MD. pm1 03/21 00:11 Discharged to home ambulatory, with family. dm5 Condition: good Discharge instructions given to patient, significant other, Instructed on discharge instructions, follow up and referral plans. medication usage, [facility] and following up with them on Sunday morning. 00:15 Patient left the ED. dm5 Signatures: Irene Ha RN RN dm5 Harry Walker, EMBROIDERY ASSISTANT EMBROIDERY ASSISTANT pm1 Solomon Lynn RN RN ll1 Jyotsna Zazueta
--- NOTE | 2020-03-20 23:33 | EDPHYS ---
Physician Documentation [facility] Name: Keny Kyle Age: 19 yrs Sex: Male : 2000 Arrival Date: 03/20/2020 Time: 20:21 Bed 24 Private MD: ED Physician Mandeep Abbott HPI: 03/20 21:39 This 19 yrs old Male presents to ER via Ambulatory with complaints of Anxiety, pm1 Decreased Appetite, Chest pain. Palpitations. 21:39 The patient or guardian reports chest pain that is located primarily in the mid-sternal pm1 area. The pain does not radiate. Associated signs and symptoms: Pertinent positives: palpitations, Anxiety. Duration: The patient or guardian reports multiple episodes. Modifying factors: the symptoms are aggravated by chest pain and palpitations are present with his anxiety. The patient has been waking up feeling anxious. It has been going on for multiple months and he reports it started after he had an injury and infection to his left foot . The patient has not recently seen a physician. Historical: - Allergies: 20:33 No Known Allergies; ll1 - PMHx: 20:33 broken foot/infection; ll1 - PSHx: 20:33 None; ll1 - Immunization history:: Flu vaccine is not up to date. - Social history:: Smoking status: Patient denies any tobacco usage or history of. ROS: 21:39 Constitutional: Negative for fever, chills, and weight loss. pm1 21:39 Respiratory: Negative for shortness of breath, cough, wheezing, and pleuritic chest pain, Abdomen/GI: Negative for abdominal pain, nausea, vomiting, diarrhea, and constipation, Back: Negative for injury and pain, MS/Extremity: Negative for injury and deformity, Skin: Negative for injury, rash, and discoloration. 21:39 Neuro: Negative for headache, weakness, numbness, tingling, and seizure. 21:39 Cardiovascular: Positive for chest pain, palpitations, Negative for edema. 21:39 Psych: Positive for anxiety, depression, Negative for auditory hallucinations, visual hallucinations, homicidal ideation, suicide gesture, suicidal ideation. Exam: 21:39 Constitutional: This is a well developed, well nourished patient who is awake, alert, pm1 and in no acute distress. Head/Face: Normocephalic, atraumatic. 21:39 Cardiovascular: Regular rate and rhythm with a normal S1 and S2. No gallops, murmurs, or rubs. Normal PMI, no JVD. No pulse deficits. Respiratory: Lungs have equal breath sounds bilaterally, clear to auscultation and percussion. No rales, rhonchi or wheezes noted. No increased work of breathing, no retractions or nasal flaring. 21:39 Back: No spinal tenderness. No costovertebral tenderness. Full range of motion. Skin: Warm, dry with normal turgor. Normal color with no rashes, no lesions, and no evidence of cellulitis. MS/ Extremity: Pulses equal, no cyanosis. Neurovascular intact. Full, normal range of motion. 21:39 Chest/axilla: Exam negative for acute changes, Inspection: normal, Palpation: is normal, no crepitus, no tenderness. 21:39 Abdomen/GI: Inspection: obese Palpation: abdomen is soft and non-tender, in all quadrants. 21:39 Neuro: Exam negative for acute changes, Orientation: is normal, Mentation: is normal, Motor: is normal, moves all fours. Vital Signs: 20:31 BP 141 / 97; Pulse 110; Resp 20; Temp 98.8; Pulse Ox 97% ; Weight 118.84 kg; Height 5 ll1 ft. 10 in. (177.80 cm); Pain 8/10; 23:06 BP 136 / 85; Pulse 73; Resp 20; Pulse Ox 100% ; dm5 20:31 Body Mass Index 37.59 (118.84 kg, 177.80 cm) ll1 MDM: 21:19 Patient medically screened. pm1 23:31 Data reviewed: vital signs. Data interpreted: Pulse oximetry: on room air is 100 %. pm1 Interpretation: normal. 23:31 Counseling: I had a detailed discussion with the patient and/or guardian regarding: the pm1 historical points, exam findings, and any diagnostic results supporting the discharge/admit diagnosis, lab results, the need for outpatient follow up, monitor and treat thyroid function, treatment for anxiety, to return to the emergency department if symptoms worsen or persist or if there are any questions or concerns that arise at home. 03/20 21:29 Order name: Acetaminophen; Complete Time: 23:39 pm1 03/20 21:29 Order name: Basic Metabolic Panel; Complete Time: 23:39 pm1 03/20 21:29 Order name: CBC with Diff; Complete Time: 22:24 pm1 03/20 21:29 Order name: ETOH Level; Complete Time: 22:55 pm1 03/20 21:29 Order name: Hepatic Function; Complete Time: 23:39 pm1 03/20 21:29 Order name: PT-INR; Complete Time: 22:51 pm1 03/20 21:29 Order name: Ptt, Activated; Complete Time: 22:51 pm1 03/20 21:29 Order name: Salicylate; Complete Time: 22:51 pm1 03/20 21:29 Order name: Urine Drug Screen; Complete Time: 23:39 pm1 03/20 21:29 Order name: TSH; Complete Time: 23:39 pm1 03/20 21:29 Order name: Troponin (emerg Dept Use Only); Complete Time: 23:39 pm1 03/20 23:04 Order name: Urine Dipstick--Ancillary (enter results); Complete Time: 23:21 mw2 03/20 23:14 Order name: T4 Free; Complete Time: 23:39 EDMS 03/20 20:43 Order name: EKG - Nurse/Tech: verbal order Iam Walker; Complete Time: 20:43 ll1 03/20 21:29 Order name: EKG; Complete Time: 21:30 pm1 03/20 21:29 Order name: IV Saline Lock; Complete Time: 22:44 pm1 03/20 21:29 Order name: Labs collected and sent; Complete Time: 22:44 pm1 03/20 21:29 Order name: Urine Dipstick-Ancillary (obtain specimen); Complete Time: 23:04 pm1 Administered Medications: 22:15 Drug: NS 0.9% 1000 ml Route: IV; Rate: 1000 ml; Site: right antecubital; dm5 03/21 00:14 Follow up: IV Status: Completed infusion; IV Intake: 1000ml dm5 Disposition: 06:04 Co-signature as Attending Physician, Mandeep Abbott MD. mh7 Disposition: 03/20/20 23:33 Discharged to Home. Impression: Anxiety disorder, unspecified, Palpitations, Chest pain, unspecified. - Condition is Stable. - Discharge Instructions: Panic Attacks, Nonspecific Chest Pain, Palpitations, Generalized Anxiety Disorder. - Prescriptions for Ativan 0.5 mg Oral Tablet - take 1 tablet by ORAL route every 8 hours As needed; 6 tablet. - Medication Reconciliation Form, Thank You Letter, Antibiotic Education, Prescription Opioid Use form. - Follow up: Emergency Department; When: As needed; Reason: Worsening of condition. Follow up: Private Physician; When: 2 - 3 days; Reason: Recheck today's complaints, Continuance of care, Re-evaluation by your physician. - Problem is new. - Symptoms have improved. Signatures: Dispatcher [employer] EDSC Irene Ha RN RN dm5 Harry Walker NP NET COORDINATOR pm1 Solomon Lynn RN RN ll1 Mandeep Abbott MD MD 7 Corrections: (The following items were deleted from the chart) 00:15 03/20 23:33 03/20/2020 23:33 Discharged to Home. Impression: Anxiety disorder, dm5 unspecified; Palpitations; Chest pain, unspecified. Condition is Stable. Forms are Medication Reconciliation Form, Thank You Letter, Antibiotic Education, Prescription Opioid Use. Follow up: Emergency Department; When: As needed; Reason: Worsening of condition. Follow up: Private Physician; When: 2 - 3 days; Reason: Recheck today's complaints, Continuance of care, Re-evaluation by your physician. Problem is new. Symptoms have improved. pm1
[2020-03-20 23:36] LABS: Barbiturates NEGATIVE (NEGATIVE); Benzodiazepines NEGATIVE (NEGATIVE); Cocaine NEGATIVE (NEGATIVE); METHAMPHETAM NEGATIVE (NEGATIVE); Methadone NEGATIVE (NEGATIVE); Opiates NEGATIVE (NEGATIVE); Phencyclidine NEGATIVE (NEGATIVE); THC Cannibis POSITIVE (NEGATIVE)
[2020-03-21 07:22] VITALS: TEMP 98.8
[2020-03-21 07:23] VITALS: BP 136/85; O2SAT 100
== END 2020-03-21 00:15 | disposition home or self-care (01) ==
LOC: ER 20:18
DX: F41.9 Anxiety disorder, unspecified (principal); R00.2 Palpitations
CPT/HCPCS: 96361; 93005; 85025; 80048; 36415; 80320; 80329 ×2; 85610; 80076; 80307 ×8; 85730; 84443; 81003; 84484; 84439; 96360; 99283; J7030

== ENCOUNTER 2020-04-03 16:07 | Emergency (ER) | payer OTHER ==
--- OUTSIDE RECORDS SUMMARY | 2020-04-03 16:10 | XMS REPORT | Continuity of Care Document ---
:2000 Author Organization [facility] t Address [address] [place] [address] Care Team Providers Name Role Phone Samia [...] Type Clinicians Facility Department ID 2020-02-12 2020-02-12 [facility] [id number] 09:48:20 23:59:00 Encounter [facility] [place] [id number] Surgical [id number] Specialti [phone] es [address] 2020-02-12 2020-02-12 Office [facility] [id number] 09:17:13 09:57:42 Visit [facility] [id number] Surgical [id number] Specialti [phone] [address] [place] Results This patient has no known results.
[2020-04-03 16:56] LABS: Absolute Lymphocytes (CBC) 1.7 K/uL (0.7-4.9); Basophils % 0.5 % (0-1.3); Hematocrit 45.5 % (39.6-49.0); Lymphocytes % 31.6 % (15.3-44.8); MPV 9.7 fL (7.6-11.3); RBC Red Blood Cell Count 5.03 M/uL (4.33-5.43)
[2020-04-03 17:11] LABS: BUN Blood Urea Nitrogen 10 mg/dL (7-18); Bicarbonate 28 mmol/L (21-32); Glucose Level 111 mg/dL (74-106); Potassium 3.9 mmol/L (3.5-5.1); Sodium Level 140 mmol/L (136-145); Troponin (Emerg Dept Use Only) < 0.02 ng/mL (0.0-0.045)
--- NOTE | 2020-04-03 17:11 | RAD REPORT ---
EXAM DESCRIPTION: Anny Single View04/03/2020 4:42 pm CLINICAL HISTORY: Fatigue and syncope COMPARISON: 2017 FINDINGS: The lungs appear clear of acute infiltrate. The heart is normal size IMPRESSION: No acute abnormalities displayed
[2020-04-03] MEDS ORDERED: NA CHLORIDE 0.9% 1,000 ML ONE (17:24)
[2020-04-03] MEDS ORDERED: ACETAMINOPHEN 325 MG TABLET ONE (18:06)
--- NOTE | 2020-04-03 19:16 | EDPHYS ---
Physician Documentation [facility] Name: Keny Kyle Age: 19 yrs Sex: Male : 2000 Arrival Date: 04/03/2020 Time: 16:09 Bed 5 Private MD: ED Physician Az De Guzman HPI: 04/03 16:27 This 19 yrs old Male presents to ER via Ambulatory with complaints of Near pm1 Syncope. 16:27 The patient has experienced near-syncope, felt dizzy. Onset: The symptoms/episode pm1 began/occurred yesterday. Context: occurred at home, occurred while the patient was changing position and while watching TV. Just prior to the episode the patient experienced no apparent symptoms. Associated injury: The patient did not suffer any apparent associated injury. Associated signs and symptoms: Pertinent negatives: abdominal pain, chest pain, shortness of breath. Current symptoms: Currently, the patient is not experiencing any symptoms. The patient has not experienced similar symptoms in the past. The patient has not recently seen a physician. Has been exercising and dieting recently resulting in 10 pound weight loss. Historical: - Allergies: 16:22 No Known Allergies; ll1 - PMHx: 16:22 broken foot/infection; ll1 - PSHx: 16:22 None; ll1 - Immunization history:: Flu vaccine is not up to date. - Social history:: Smoking status: Patient denies any tobacco usage or history of. ROS: 16:27 Constitutional: Negative for fever, chills, and weight loss, Cardiovascular: Negative pm1 for chest pain, palpitations, and edema, Respiratory: Negative for shortness of breath, cough, wheezing, and pleuritic chest pain, Back: Negative for injury and pain, MS/Extremity: Negative for injury and deformity, Skin: Negative for injury, rash, and discoloration. 16:27 Abdomen/GI: Positive for diarrhea x 1, Negative for abdominal pain, nausea, vomiting. 16:27 Neuro: Positive for near syncope, Negative for headache. Exam: 16:27 Abdomen/GI: Inspection: abdomen appears normal, Palpation: abdomen is soft and pm1 non-tender, in all quadrants. 16:27 Constitutional: This is a well developed, well nourished patient who is awake, alert, and in no acute distress. Head/Face: Normocephalic, atraumatic. 16:27 Back: No spinal tenderness. No costovertebral tenderness. Full range of motion. Skin: Warm, dry with normal turgor. Normal color with no rashes, no lesions, and no evidence of cellulitis. MS/ Extremity: Pulses equal, no cyanosis. Neurovascular intact. Full, normal range of motion. 16:27 Cardiovascular: Exam negative for acute changes, Rate: normal, Rhythm: regular, Pulses: no pulse deficits are appreciated. 16:27 Respiratory: Exam negative for acute changes, respiratory distress, shortness of breath. 16:27 Neuro: Exam negative for acute changes, Orientation: is normal, Mentation: is normal, Motor: is normal, moves all fours. Vital Signs: 16:22 BP 142 / 88; Pulse 93; Resp 17; Temp 98.3; Pulse Ox 96% on R/A; Weight 114.76 kg; ll1 Height 5 ft. 10 in. (177.80 cm); Pain 6/10; 17:12 BP 123 / 71 Supine; Pulse 72; hb 17:16 BP 132 / 82 Sitting; Pulse 79; hb 17:19 BP 132 / 88 Standing; Pulse 84; hb 18:00 BP 126 / 62; Pulse 65; Resp 16 S; Pulse Ox 98% on R/A; ec1 18:32 Pain 5/10; ec1 19:30 BP 116 / 70; Pulse 75; Resp 18; Pulse Ox 99% on R/A; wh 16:22 Body Mass Index 36.30 (114.76 kg, 177.80 cm) ll1 MDM: 16:20 Patient medically screened. pm1 17:12 Data reviewed: vital signs. Data interpreted: Pulse oximetry: on room air is 96 %. pm1 Interpretation: normal. 19:14 Counseling: I had a detailed discussion with the patient and/or guardian regarding: the pm1 historical points, exam findings, and any diagnostic results supporting the discharge/admit diagnosis, lab results, radiology results, the need for outpatient follow up, to return to the emergency department if symptoms worsen or persist or if there are any questions or concerns that arise at home. 04/03 16:27 Order name: Basic Metabolic Panel; Complete Time: 17:12 pm1 04/03 16:27 Order name: CBC with Diff; Complete Time: 17:05 pm1 04/03 16:27 Order name: Troponin (emerg Dept Use Only); Complete Time: 17:12 pm1 04/03 16:27 Order name: XRAY Chest (1 view); Complete Time: 17:17 pm1 04/03 16:27 Order name: EKG; Complete Time: 16:28 pm1 04/03 16:27 Order name: Cardiac monitoring; Complete Time: 16:49 pm1 04/03 16:27 Order name: EKG - Nurse/Tech; Complete Time: 17:04 pm1 04/03 16:27 Order name: IV Saline Lock; Complete Time: 16:49 pm1 04/03 16:27 Order name: Labs collected and sent; Complete Time: 16:49 pm1 04/03 16:27 Order name: O2 Per Protocol; Complete Time: 16:49 pm1 04/03 16:27 Order name: O2 Sat Monitoring; Complete Time: 16:49 pm1 04/03 16:27 Order name: Orthostatics; Complete Time: 17:18 pm1 Administered Medications: 17:11 Drug: NS 0.9% 1000 ml Route: IV; Rate: 1000 ml; Site: right antecubital; hb 19:30 Follow up: Response: No adverse reaction; IV Status: Completed infusion 17:53 Drug: Tylenol 650 mg Route: PO; ec1 19:30 Follow up: Response: No adverse reaction Disposition: 04/04 07:41 Co-signature as Attending Physician, Az De Guzman MD. rn Disposition: 04/03/20 19:15 Discharged to Home. Impression: Dizziness and giddiness. - Condition is Stable. - Discharge Instructions: Near-Syncope, Rehydration, Adult. - Medication Reconciliation Form, Thank You Letter, Antibiotic Education, Prescription Opioid Use form. - Follow up: Emergency Department; When: As needed; Reason: Worsening of condition. Follow up: Private Physician; When: 2 - 3 days; Reason: Recheck today's complaints, Continuance of care, Re-evaluation by your physician. - Problem is new. - Symptoms have improved. Signatures: Dispatcher [employer] EDMS Az De Guzman MD MD rn Marinas, Patrick, MICHELLE DOCKING PILOT pm1 Danielle Espinal, RN RN Habalo, Gavinosy Solomon Lynn RN RN 1 Winnie Nur, RN RN ec1 Corrections: (The following items were deleted from the chart) 04/03 19:31 19:15 04/03/2020 19:15 Discharged to Home. Impression: Dizziness and giddiness. wh Condition is Stable. Forms are Medication Reconciliation Form, Thank You Letter, Antibiotic Education, Prescription Opioid Use. Follow up: Emergency Department; When: As needed; Reason: Worsening of condition. Follow up: Private Physician; When: 2 - 3 days; Reason: Recheck today's complaints, Continuance of care, Re-evaluation by your physician. Problem is new. Symptoms have improved. pm1
--- NOTE | 2020-04-03 19:16 | ER ---
Nurse's Notes [facility] Name: Keny Kyle Age: 19 yrs Sex: Male : 2000 Arrival Date: 04/03/2020 Time: 16:09 Bed 5 Private MD: Diagnosis: Dizziness and giddiness Presentation: 04/03 16:22 Chief complaint: Patient states: Fatigue since yesterday. Had one near syncope event ll1 yesterday, and then another today, so he decided to come get checked out. Intermittent PONCE, fatigue, and 1 diarrhea today. No fever. Denies N/V. Coronavirus screen: Client denies travel out of the [place] in the last 14 days. diarrhea, fatigue, headache, Client presents with at least one sign or symptom that may indicate coronavirus-19. Standard/surgical mask placed on the client. Ebola Screen: Patient denies travel to an Ebola-affected area in the 21 days before illness onset. Initial Sepsis Screen: Does the patient meet any 2 criteria? HR > 90 bpm. No. Patient's initial sepsis screen is negative. Does the patient have a suspected source of infection? No. Patient's initial sepsis screen is negative. Risk Assessment: Do you want to hurt yourself or someone else? Patient reports no desire to harm self or others. Onset of symptoms was April 02, 2020. 16:22 Method Of Arrival: Ambulatory ll1 16:22 Acuity: MARI 3 ll1 Historical: - Allergies: 16:22 No Known Allergies; ll1 - PMHx: 16:22 broken foot/infection; ll1 - PSHx: 16:22 None; ll1 - Immunization history:: Flu vaccine is not up to date. - Social history:: Smoking status: Patient denies any tobacco usage or history of. Screenin:05 Abuse screen: Denies threats or abuse. Denies injuries from another. Nutritional wh screening: No deficits noted. Tuberculosis screening: No symptoms or risk factors identified. Fall Risk None identified. Assessment: 16:47 General: Appears in no apparent distress. comfortable, Behavior is anxious. Neuro: ec1 Level of Consciousness is awake, alert, obeys commands, Oriented to person, place, time, situation, Pupils are PERRLA, Pupil Size: 4 mm bilateral Reports dizziness, Denies. Cardiovascular: Patient's skin is warm and dry. Respiratory: Respiratory effort is even, unlabored. GI: No signs and/or symptoms were reported involving the gastrointestinal system. : No signs and/or symptoms were reported regarding the genitourinary system. EENT: No signs and/or symptoms were reported regarding the EENT system. Derm: No signs and/or symptoms reported regarding the dermatologic system. Musculoskeletal: No signs and/or symptoms reported regarding the musculoskeletal system. 17:20 Reassessment: Patient appears in no apparent distress at this time. Patient and/or hb family updated on plan of care and expected duration. Pain level reassessed. Patient is alert, oriented x 3, equal unlabored respirations, skin warm/dry/pink. 18:31 Reassessment: Patient appears in no apparent distress at this time. Patient and/or hb family updated on plan of care and expected duration. Pain level reassessed. Patient is alert, oriented x 3, equal unlabored respirations, skin warm/dry/pink. 19:05 Reassessment: Patient appears in no apparent distress at this time. Patient and/or wh family updated on plan of care and expected duration. Pain level reassessed. Patient is alert, oriented x 3, equal unlabored respirations, skin warm/dry/pink. Pain: Denies pain. Vital Signs: 16:22 BP 142 / 88; Pulse 93; Resp 17; Temp 98.3; Pulse Ox 96% on R/A; Weight 114.76 kg; ll1 Height 5 ft. 10 in. (177.80 cm); Pain 6/10; 17:12 BP 123 / 71 Supine; Pulse 72; hb 17:16 BP 132 / 82 Sitting; Pulse 79; hb 17:19 BP 132 / 88 Standing; Pulse 84; hb 18:00 BP 126 / 62; Pulse 65; Resp 16 S; Pulse Ox 98% on R/A; ec1 18:32 Pain 5/10; ec1 19:30 BP 116 / 70; Pulse 75; Resp 18; Pulse Ox 99% on R/A; wh 16:22 Body Mass Index 36.30 (114.76 kg, 177.80 cm) ll1 ED Course: 16:09 Patient arrived in ED. as 16:11 Harry Walker NP is PHCP. pm1 16:11 Az De Guzman MD is Attending Physician. pm1 16:22 Arm band placed on Patient placed in an exam room, on a stretcher. ll1 16:25 Triage completed. ll1 16:33 Winnie Nur, RN is Primary Nurse. ec1 16:43 XRAY Chest (1 view) In Process Unspecified. EDMS 16:49 Inserted saline lock: 20 gauge in right antecubital area, using aseptic technique. ec1 Blood collected. 17:04 EKG done, by ED staff, reviewed by Az De Guzman MD. ds4 19:05 Patient has correct armband on for positive identification. Bed in low position. Call light in reach. Side rails up X 1. court recording monitor on. Pulse ox on. NIBP on. 19:08 Report given to Kelsy SEAMAN and Jigna SEAMAN. 19:31 No provider procedures requiring assistance completed. IV discontinued, intact, bleeding controlled, No redness/swelling at site. Administered Medications: 17:11 Drug: NS 0.9% 1000 ml Route: IV; Rate: 1000 ml; Site: right antecubital; 19:30 Follow up: Response: No adverse reaction; IV Status: Completed infusion 17:53 Drug: Tylenol 650 mg Route: PO; ec1 19:30 Follow up: Response: No adverse reaction Outcome: 19:15 Discharge ordered by MD. pm1 19:31 Discharged to home ambulatory. 19:31 Condition: stable 19:31 Discharge instructions given to patient, Instructed on discharge instructions, follow up and referral plans. POC Demonstrated understanding of instructions, follow-up care, POC 19:31 Patient left the ED. Signatures: Dispatcher [employer] [facility] Izabela Scott, Ethel Claudio RN, Donovan ds4 Harry Walker, TELEPHONE INTERCEPTOR OPERATOR TELEPHONE INTERCEPTOR OPERATOR pm1 Danielle Espinal RN RN Idalmis, Jigna Solomon Lynn RN RN 1 Winnie Nur, RN RN ec1
[2020-04-08 05:14] VITALS: TEMP 98.3
[2020-04-08 05:22] VITALS: BP 116/70; O2SAT 99
== END 2020-04-03 19:31 | disposition home or self-care (01) ==
LOC: ER 16:07
DX: R42 Dizziness and giddiness (principal)
CPT/HCPCS: 96361; 93005; 85025; 80048; 36415; 84484; 71045; 96360; 99284; J7030

== ENCOUNTER 2021-10-23 21:28 | Emergency (ER) | payer OTHER, SELFPAY ==
--- OUTSIDE RECORDS SUMMARY | 2021-10-23 21:33 | XMS REPORT | Continuity of Care Document ---
:2000 Author Organization [facility] t Address [address] [place] [address] Care Team Providers Name Role Phone Pcp, Does Not Have A Primary Care Physician Kenisha PATTON F Attending Clinician Samia SULLIVAN Attending Clinician Unavailable Nate COELHO, L Attending Clinician Merari PATTON T Attending Clinician Toro SEAMAN Attending Clinician Unavailable Louise MARCH S Attending Clinician Christophe GIL Attending Clinician Unavailable Payers Payer Name Policy Type Policy Number Effective Date Expiration Date Christophe TEE II [id number] 2019 00:00:00 Problems Condition Condition Condition Status Onset Resolution Last Treating Co mments Source Name Details Category Date Date Treatment Clinician Date No known No known Disease Unive rs active active ity of problems problems [facility] [place] Allergies, Adverse Reactions, Alerts Allergy Allergy Status Severity Reaction(s) Onset Inactive Treating Comm ents Source Name Type Date Date Clinician NO KNOWN Drug Active Univers ALLERGIE Class ity of S [facility] [place] Social History Social Habit Start Date Stop Date Quantity Comments Source Exposure to Not sure [facility] SARS-CoV-2 (event) Medica l Branch Tobacco use and 2021-01-08 2021-01-08 Never used [facility] [place] exposure 00:00:00 00:00:00 [facility] Branch Tobacco Comment 2019-12-02 2019-12-02 weed [facility] 00:00:00 00:00:00 [facility] Sex Assigned At [birth year] [facility] 00:00:00 00:00:00 [facility] Branch Smoking Status Start Date Stop Date Source Unknown if ever smoked [facility] Medications Ordered Filled Start Stop Current Ordering Indication Dosage Frequency Signature Comments Components Source Medication Medication Date Date Medication? Clinician (SIG) Name Name LORazepam 2020- No 1mg 1 mg, Slow U nivers (ATIVAN) 01-08 IV Push, ity of injection 1 04:30: 04:23 [place]CE[place] 1 [place] :[place] dose, [facility] 01/07/21 at [place] 2330, STAT NaCl 0.9% 2020- No 1000mL at 999 Uni vers (NS) bolus 01-08 mL/hr, ity of infusion 04:30: 05:39 1,000 mL, [place] as 1,000 mL 00 :00 IV Medical Piggyback, [place] ONCE, 1 dose, 01/07/21 at 2330, STAT LORazepam 2020- No 1mg 1 mg, Slow U nivers (ATIVAN) 01-08 IV Push, ity of injection 1 04:30: 04:23 [place]CE[place] 1 [place] mg [place] :00 dose, [facility] 01/07/21 at [place] 2330, STAT NaCl 0.9% 2020- No 1000mL at 999 Uni vers (NS) bolus 01-08 mL/hr, ity of infusion 04:30: 05:39 1,000 mL, [place]abb[place] as 1,000 mL 00 :00 IV Medical Piggyback, [place] ONCE, 1 dose, Sun01/07/21 at 2330, STAT hydrOXYzine 2020- Yes [id number] 50mg Take 1 Univers 50 mg 9-11 tablet by ity of tablet 00:00: mouth 3 [place] 00 (three) Medical times [place] daily as needed for Anxiety. hydrOXYzine 2020- Yes [id number] 50mg Take 1 Univers 50 mg 9-11 tablet by ity of tablet 00:00: mouth 3 [place] 00 (three) Medical times Branch daily as needed for Anxiety. ciprofloxac 2020-0 2020- No 500mg Take 1 Un neris in HCl 12-14- tablet by ity of (CIPRO) 500 00:00: 04:59 mouth 2 [place] mg tablet 00 :00 (two) Medical times Branch daily for 10 days. ciprofloxac 2020-0 2020- No 500mg Take 1 Un neris in HCl 12-14- tablet by ity of (CIPRO) 500 00:00: 04:59 mouth 2 [place] mg tablet 00 :00 (two) Medical times Branch daily for 10 days. cephALEXin 2020-0 2020- No 500mg 500 mg, Un neris (KEFLEX) 12-05 Oral, ity of capsule 500 06:15: 05:07 ONCE, 1 [place] mg [place] :[place] dose, Sat Medical 12/06/19 at Branch 0115, CAIT
Re ason for Anti-Infec tive: Documented Infection< br>Documen lisa Infection Site: Skin / Soft Tissue
Duration of Therapy: 7 days NaCl 0.9% 2019- 2020- No 30mL/kg at 999 Un neirs (NS) bolus 12-05 mL/hr, ity of infusion 01:00: 04:41 2,121 [place] 2,121 mL 00 :00 (30 mL/kg Medica l ?70.7 kg Branch [place] weight), IV Infusion, ONCE, 1 dose, 12/05/19 at 2000, CAIT cephALEXin 2020-0 2020- No [id number] 500mg Take 1 Univers (KEFLEX) 12-05 [id number] capsule by it y of 500 mg 00:00: 04:59 mouth 4 [place] capsule 00 :00 (four) Medical times Branch daily for 5 days. acetaminoph 2020-0 Yes [id number] 1{tbl} Take 1 Un neris en-codeine - tablet by ity of (TYLENOL-CO 00:00: mouth [place] DEINE #3) 00 every 4 Medical 300-30 mg (four) Branch tablet hours as needed for Pain (scale 4-6) or Pain (scale 7-10). Indication s: acute pain acetaminoph 2020-0 Yes 4647 1{tbl} Take 1 Un neris en-codeine 8-04 tablet by ity of (TYLENOL-CO 00:00: mouth [place] DEINE #3) 00 every 4 Medical 300-30 mg (four) Branch tablet hours as needed for Pain (scale 4-6) or Pain (scale 7-10). Indication s: acute pain acetaminoph 2020-0 Yes 4647 1{tbl} Take 1 Un neris en-codeine 8-04 tablet by ity of (TYLENOL-CO 00:00: mouth [place] DEINE #3) 00 every 4 Medical 300-30 mg (four) Branch tablet hours as needed for Pain (scale 4-6) or Pain (scale 7-10). Indication s: acute pain acetaminoph 2020-0 Yes 4647 1{tbl} Take 1 Un neris en-codeine 8-04 tablet by ity of (TYLENOL-CO 00:00: mouth [place] DEINE #3) 00 every 4 Medical 300-30 mg (four) Branch tablet hours as needed for Pain (scale 4-6) or Pain (scale 7-10). Indication s: acute pain acetaminoph 2020-0 Yes 4647 1{tbl} Take 1 Un neris en-codeine 8-04 tablet by ity of (TYLENOL-CO 00:00: mouth [place] DEINE #3) 00 every 4 Medical 300-30 mg (four) Branch tablet hours as needed for Pain (scale 4-6) or Pain (scale 7-10). Indication s: acute pain acetaminoph 2020-0 Yes 4647 1{tbl} Take 1 Un neris en-codeine 8-04 tablet by ity of (TYLENOL-CO 00:00: mouth [place] DEINE #3) 00 every 4 Medical 300-30 mg (four) Branch tablet hours as needed for Pain (scale 4-6) or Pain (scale 7-10). Indication s: acute pain acetaminoph 2020-0 Yes 4647 1{tbl} Take 1 Un neris en-codeine 8-04 tablet by ity of (TYLENOL-CO 00:00: mouth [place] DEINE #3) 00 every 4 Medical 300-30 mg (four) Branch tablet hours as needed for Pain (scale 4-6) or Pain (scale 7-10). Indication s: acute pain acetaminoph 2020-0 Yes 4647 1{tbl} Take 1 Un neris en-codeine 8-04 tablet by ity of (TYLENOL-CO 00:00: mouth [place] DEINE #3) 00 every 4 Medical 300-30 mg (four) Branch tablet hours as needed for Pain (scale 4-6) or Pain (scale 7-10). Indication s: acute pain acetaminoph 2020-0 Yes 4647 1{tbl} Take 1 Un neris en-codeine 8-04 tablet by ity of (TYLENOL-CO 00:00: mouth [place] DEINE #3) 00 every 4 Medical 300-30 mg (four) Branch tablet hours as needed for Pain (scale 4-6) or Pain (scale 7-10). Indication s: acute pain acetaminoph 2020-0 Yes 4647 1{tbl} Take 1 Un neris en-codeine 8-04 tablet by ity of (TYLENOL-CO 00:00: mouth [place] DEINE #3) 00 every 4 Medical 300-30 mg (four) Branch tablet hours as needed for Pain (scale 4-6) or Pain (scale 7-10). Indication s: acute pain acetaminoph 2020-0 Yes 4647 1{tbl} Take 1 Un neris en-codeine 8-04 tablet by ity of (TYLENOL-CO 00:00: mouth [place] DEINE #3) 00 every 4 Medical 300-30 mg (four) Branch tablet hours as needed for Pain (scale 4-6) or Pain (scale 7-10). Indication s: acute pain acetaminoph 2020-0 Yes 4647 1{tbl} Take 1 Un neris en-codeine 8-04 tablet by ity of (TYLENOL-CO 00:00: mouth [place] DEINE #3) 00 every 4 Medical 300-30 mg (four) Branch tablet hours as needed for Pain (scale 4-6) or Pain (scale 7-10). Indication s: acute pain acetaminoph 2020-0 Yes 4647 1{tbl} Take 1 Un neris en-codeine 8-04 tablet by ity of (TYLENOL-CO 00:00: mouth [place] DEINE #3) 00 every 4 Medical 300-30 mg (four) Branch tablet hours as needed for Pain (scale 4-6) or Pain (scale 7-10). Indication s: acute pain acetaminoph 2020-0 Yes 4647 1{tbl} Take 1 Un neris en-codeine 8-04 tablet by ity of (TYLENOL-CO 00:00: mouth [place] DEINE #3) 00 every 4 Medical 300-30 mg (four) Branch tablet hours as needed for Pain (scale 4-6) or Pain (scale 7-10). Indication s: acute pain meloxicam 2020-0 Yes TOME VENESSA Univ ers 7.5 mg 7-30 TABLETA ity of tablet 00:00: POR V A [place] 00 ORAL EVERY Medical 12 HOURS Branch TAKE WITH FOOD traMADol 50 2020-0 Yes TOME VENESSA Un neris mg tablet 7-30 TABLETA ity of 00:00: POR V A [place] 00 ORAL EVERY Medical 6 HOURS Branch NEEEDED meloxicam 2020-0 Yes TOME VENESSA Univ ers 7.5 mg 7-30 TABLETA ity of tablet 00:00: POR V A [place] 00 ORAL EVERY Medical 12 HOURS Branch TAKE WITH FOOD traMADol 50 2020-0 Yes TOME VENESSA Un neris mg tablet 7-30 TABLETA ity of 00:00: POR V A [place] 00 ORAL EVERY Medical 6 HOURS Branch NEEEDED meloxicam 2020-0 Yes TOME VENESSA Univ ers 7.5 mg 7-30 TABLETA ity of tablet 00:00: POR V A [place] 00 ORAL EVERY Medical 12 HOURS Branch TAKE WITH FOOD traMADol 50 2020-0 Yes TOME VENESSA Un neris mg tablet 7-30 TABLETA ity of 00:00: POR V A [place] 00 ORAL EVERY Medical 6 HOURS Branch NEEEDED meloxicam 2020-0 Yes TOME VENESSA Univ ers 7.5 mg 7-30 TABLETA ity of tablet 00:00: POR V A [place] 00 ORAL EVERY Medical 12 HOURS Branch TAKE WITH FOOD traMADol 50 2020-0 Yes TOME VENESSA Un neris mg tablet 7-30 TABLETA ity of 00:00: POR V A [place] 00 ORAL EVERY Medical 6 HOURS Branch NEEEDED meloxicam 2020-0 Yes TOME VENESSA Univ ers 7.5 mg 7-30 TABLETA ity of tablet 00:00: POR V A [place] 00 ORAL EVERY Medical 12 HOURS Branch TAKE WITH FOOD traMADol 50 2020-0 Yes TOME VENESSA Un neris mg tablet 7-30 TABLETA ity of 00:00: POR V A [place] 00 ORAL EVERY Medical 6 HOURS Branch NEEEDED meloxicam 2020-0 Yes TOMLaverne VENESSA Univ ers 7.5 mg 7-30 TABLETA ity of tablet 00:00: POR V A [place] 00 ORAL EVERY Medical 12 HOURS Branch TAKE WITH FOOD traMADol 50 2020-0 Yes TOMLaverne CLIFFORD Un neris mg tablet 7-30 TABLETA ity of 00:00: POR V A [place] 00 ORAL EVERY Medical 6 HOURS Branch NEEEDED meloxicam 2020-0 Yes TOMLaverne VENESSA Univ ers 7.5 mg 7-30 TABLETA ity of tablet 00:00: POR V A [place] 00 ORAL EVERY Medical 12 HOURS Branch TAKE WITH FOOD traMADol 50 2020-0 Yes REI CLIFFORD Un neris mg tablet 7-30 TABLETA ity of 00:00: POR V A [place] 00 ORAL EVERY Medical 6 HOURS Branch NEEEDED meloxicam 2020-0 Yes TOMLaverne VENESSA Univ ers 7.5 mg 7-30 TABLETA ity of tablet 00:00: POR V A [place] 00 ORAL EVERY Medical 12 HOURS Branch TAKE WITH FOOD traMADol 50 2020-0 Yes TOMLaverne CLIFFORD Un neris mg tablet 7-30 TABLETA ity of 00:00: POR V A [place] 00 ORAL EVERY Medical 6 HOURS Branch NEEEDED meloxicam 2020-0 Yes TOMLaverne VENESSA Univ ers 7.5 mg 7-30 TABLETA ity of tablet 00:00: POR V A [place] 00 ORAL EVERY Medical 12 HOURS Branch TAKE WITH FOOD traMADol 50 2020-0 Yes REI CLIFFORD Un neris mg tablet 7-30 TABLETA ity of 00:00: POR V A [place] 00 ORAL EVERY Medical 6 HOURS Branch NEEEDED meloxicam 2020-0 Yes TOMLaverne VENESSA Univ ers 7.5 mg 7-30 TABLETA ity of tablet 00:00: POR V A [place] 00 ORAL EVERY Medical 12 HOURS Branch TAKE WITH FOOD traMADol 50 2020-0 Yes REI VENESSA Un neris mg tablet 7-30 TABLETA ity of 00:00: POR V A [place] 00 ORAL EVERY Medical 6 HOURS Branch NEEEDED meloxicam 2020-0 Yes REI VENESSA Univ ers 7.5 mg 7-30 TABLETA ity of tablet 00:00: POR V A [place] 00 ORAL EVERY Medical 12 HOURS Branch TAKE WITH FOOD traMADol 50 2020-0 Yes TOME VENESSA Un neris mg tablet 7-30 TABLETA ity of 00:00: POR V A [place] 00 ORAL EVERY Medical 6 HOURS Branch NEEEDED meloxicam 2020-0 Yes TOME VENESSA Univ ers 7.5 mg 7-30 TABLETA ity of tablet 00:00: POR V A [place] 00 ORAL EVERY Medical 12 HOURS Branch TAKE WITH FOOD traMADol 50 2020-0 Yes TOME VENESSA Un neris mg tablet 7-30 TABLETA ity of 00:00: POR V A [place] 00 ORAL EVERY Medical 6 HOURS Branch NEEEDED meloxicam 2020-0 Yes TOME VENESSA Univ ers 7.5 mg 7-30 TABLETA ity of tablet 00:00: POR V A [place] 00 ORAL EVERY Medical 12 HOURS Branch TAKE WITH FOOD traMADol 50 2020-0 Yes TOME VENESSA Un neris mg tablet 7-30 TABLETA ity of 00:00: POR V A [place] 00 ORAL EVERY Medical 6 HOURS Branch NEEEDED meloxicam 2020-0 Yes JESUSE VENESSA Univ ers 7.5 mg 7-30 TABLETA ity of tablet 00:00: POR V A [place] 00 ORAL EVERY Medical 12 HOURS Branch TAKE WITH FOOD traMADol 50 2020-0 Yes TOMLaverne VENESSA Un neris mg tablet 7-30 TABLETA ity of 00:00: POR V A [place] 00 ORAL EVERY Medical 6 HOURS Branch NEEEDED Vital Signs Vital Name Observation Time Observation Value Comments Source Systolic blood 2021-01-08 05:39:54 150 mm[Hg] Univer sity of pressure [facility] [place] Diastolic blood 2021-01-08 05:39:54 76 mm[Hg] [facility] Heart rate 2021-01-08 05:39:54 80 /min [facility] Respiratory rate 2021-01-08 05:39:54 20 /min [facility] Oxygen saturation in 2021-01-08 05:39:54 99 /min [facility] Arterial blood by [facility] Pulse oximetry Branch Body temperature 2021-01-08 01:55:00 37.39 Fatimah [facility] Body height 2021-01-08 01:55:00 175.3 cm [facility] Body weight 2021-01-08 01:55:00 127.007 kg [facility] BMI 2021-01-08 01:55:00 41.35 kg/m2 [facility] [place] [facility] Systolic blood 2020-02-12 14:27:00 129 mm[Hg] Univer sity of pressure [place] [facility] Diastolic blood 2020-02-12 14:27:00 84 mm[Hg] Unive rsity of pressure [facility] Heart rate 2020-02-12 14:24:00 88 /min [facility] [place] [facility] Body height 2020-02-12 14:24:00 175.3 cm [facility] [place] [facility] Body weight 2020-02-12 14:24:00 122.471 kg [facility] [place] [facility] BMI 2020-02-12 14:24:00 39.87 kg/m2 [facility] [place] [facility] Systolic blood 2020-02-12 14:27:00 129 mm[Hg] Univer sity of pressure [place] [facility] Diastolic blood 2020-02-12 14:27:00 84 mm[Hg] Unive rsity of pressure [facility] Branch Heart rate 2020-02-12 14:24:00 88 /min [facility] [place] [facility] Body height 2020-02-12 14:24:00 175.3 cm [facility] [place] [facility] Body weight 2020-02-12 14:24:00 122.471 kg [facility] [place] [facility] BMI 2020-02-12 14:24:00 39.87 kg/m2 [facility] [place] [facility] Systolic blood 2019-12-15 20:29:00 125 mm[Hg] Univer sity of [facility] [place] [facility] Diastolic blood 2019-12-15 20:29:00 84 mm[Hg] Unive rsity of pressure [facility] Heart rate 2019-12-15 20:29:00 80 /min [facility] [place] [facility] Body height 2019-12-15 20:27:00 177.8 cm [facility] [place] [facility] Body weight 2019-12-15 20:27:00 122.471 kg stated [facility] [place] [facility] BMI 2019-12-15 20:27:00 38.74 kg/m2 [facility] [place] [facility] Systolic blood 2019-12-06 05:00:00 134 mm[Hg] Univer sity of pressure [place] [facility] Diastolic blood 2019-12-06 05:00:00 90 mm[Hg] Unive rsity of pressure [facility] [place] Heart rate 2019-12-06 05:00:00 71 /min Universi ty [facility] Respiratory rate 2019-12-06 05:00:00 18 /min [facility] Oxygen saturation in 2019-12-06 05:00:00 99 /min [facility] Arterial blood by [facility] Pulse oximetry [place] Body temperature 2019-12-06 00:10:33 37.28 Fatimah [facility] Body height 2019-12-06 00:06:00 175.3 cm Universi ty [facility] Body weight 2019-12-06 00:06:00 122.471 kg Universi [facility] BMI 2019-12-06 00:06:00 39.87 kg/m2 [facility] Systolic blood 2019-12-02 13:25:00 134 mm[Hg] Univer sity of [facility] Diastolic blood 2019-12-02 13:25:00 91 mm[Hg] Unive rsity of [facility] Heart rate 2019-12-02 13:25:00 96 /min Universi ty [facility] Body height 2019-12-02 13:20:00 175.3 cm Universi ty [facility] Body weight 2019-12-02 13:20:00 122.471 kg [facility] BMI 2019-12-02 13:20:00 39.87 kg/m2 [facility] Procedures Procedure Date / Time Performed Performing Clinician Sourc e TROPONIN I 2021-01-08 04:16:00 Don De [facility] COMP. METABOLIC PANEL 2021-01-08 04:16:00 Don De Un [facility] ([id number]) [facility] CBC WITH DIFF 2021-01-08 04:16:00 Don De [facility] D-DIMER 2021-01-08 04:16:00 Don De [facility] XR CHEST 1 VW 2021-01-08 03:06:01 Lon Gutierrez [facility] CONSENT/REFUSAL FOR 2021-01-08 01:42:28 Doctor Unassigned, No [facility] AND Name Medical Branch TREATMENT NOTICE OF PRIVACY 2021-01-08 01:41:57 Doctor Unassigned, No [facility] Medical Branch XR FOOT <3 VW LEFT 2020-02-12 14:48:21 Valente [facility] LACTIC ACID WHOLE 2019-12-06 03:20:00 Benjy Gage [facility] URINALYSIS 2019-12-06 01:00:00 Benjy Gage [facility] BLOOD CULTURE SCREEN 2019-12-06 00:53:00 Benjy [facility]age [facility] HEPATIC FUNCTION PANEL 2019-12-06 00:53:00 Benjy Gage [facility] ([id number]) Medical [place] (ALB,T.PRO,BILI T,BU/BC,ALT,AST,ALK PHOS) BASIC METABOLIC PANEL 2019-12-06 00:53:00 Benjy Gage [facility] (NA, K, CL, CO2, Medical Branch GLUCOSE, BUN, CREATININE, CA) CBC WITH DIFF 2019-12-06 00:53:00 Benjy Gage [facility] LACTIC ACID WHOLE 2019-12-06 00:53:00 Benjy Gage [facility] BLOOD CULTURE SCREEN 2019-12-06 00:45:00 Benjy Gage [facility] EKG-12 LEAD 2019-12-06 00:39:05 Benjy Gage [facility] EKG-12 LEAD 2019-12-06 00:37:53 Benjy Gage [facility] NOTICE OF PRIVACY 2019-12-05 23:56:33 Doctor Unassigned, No [facility] Name Medical Branch CONSENT/REFUSAL FOR 2019-12-05 23:54:11 Doctor Unassigned, No [facility] AND Name Medical Branch TREATMENT Encounters Start End Encounter Admission Attending Care Care Encounter Source Date/Time Date/Time Type Type Clinicians Facility Department ID 2021-02-28 Emergency [facility] [id number] Univers 21:57:[address] [facility] 2021-02-25 Emergency [facility] [id number] Univers 11:19:47 ity of [facility] [place] 2021-01-07 2021-01-08 [facility] [id number] Univers 21:06:00 01:05:00 Don Matias [id number] ity [id number] [id number] [address] 2020-03-04 2020-03-[address] [facility] [id number] Univers 09:15:00 09:15:00 VALENTE ity [facility] 2020-03-04 2020-03-04 [address] [facility] [id number] Univers 09:15:00 09:15:00 [facility] 2020-02-12 2020-02-12 [facility] [id number] 09:48:20 23:59:00 Encounter Valente Wilkins [id number] Surgical [id number] Specialti [id number] es [address] [place] 2020-02-12 2020-02-12 [facility] [id number] Univers 09:48:20 23:59:00 Encounter Valente Wilkins [id number] ity of Surgical [id number] [place] Specialti [id number] Va dical es 809 [facility] 2020-02-12 2020-02-12 Office [facility] [id number] 09:17:13 09:57:42 Visit Valente Wilkins [id number] Surgical [id number] Specialti [id number] es [address] [place] 2020-02-12 2020-02-12 Office [facility] [id number] Univers 09:17:13 09:57:42 Visit Valente Wilkins [id number] it y of Surgical [id number] [place] Specialti [id number] Me dical es 198 [facility] 2020-02-12 2020-02-12 Outpatient R NATE [facility] [id number] Univers 09:30:00 09:30:[id number] [facility] 2020-02-12 2020-02-12 Outpatient R NATE [facility] [id number] Univers 09:30:00 09:30:[address] [facility] 2019-12-24 2019-12-24 Outpatient NATE [facility] [id number] Univers 14:00:00 14:00:00 VALETNE [id number] ity [facility] 2019-12-24 2019-12-24 Outpatient R NATE [facility] [id number] Univers 14:00:00 14:00:[address] [facility] 2019-12-15 2019-12-15 [facility] [id number] Univers 15:17:14 15:58:57 Visit Valente [facility] [id number] it y of Surgical [id number] [place] Specialti [id number] Va dical es 198 [facility] 2019-12-15 2019-12-15 Outpatient R NATE [facility] [id number] Univers 15:30:00 15:30:[id number] [facility] 2019-12-15 2019-12-15 Outpatient R NATE [facility] [id number] Univers 15:30:00 15:30:[address] [facility] 2019-12-05 2019-12-06 Emergency Benjy Gage [facility] [id number] Univers 19:16:00 00:28:00 T Polly [id number] i ty of [id number] [facility] [id number] [facility] 084 [place] 2019-12-05 2019-12-05 Nurse Nicci Engel [id number] Univers 00:00:00 00:00:00 Triage ARIE [id number] it y of HOSPITAL [id number] [place] [id number] [facility] 019 Branch 2019-12-02 2019-12-02 [facility] [id number] Univers 15:00:00 23:59:00 Encounter Rolo Matias [id number] ity of [place] 4.2.7.2.686 [facility] [id number] [facility] 801 [place] 2019-12-02 2019-12-[address] [facility] [id number] Univers 15:00:00 15:00:[id number] [facility] 2019-12-02 2019-12-02 Office [facility] [id number] Univers 08:08:46 09:12:13 Visit Rolo Saeed [facility] [id number] it y of Surgical [id number] [place] Special [id number] Va dical es 198 [facility] 2019-12-02 2019-12-02 Outpatient Don [facility] [id number] Univers 08:15:00 08:15:00 [facility] Results Test Description Test Time Test Comments Results Result Comments Source TROPONIN I 2021-01-08 05:10:59 Test Item Value Reference Range Interpretation Comme nts TROPONIN I (test code = 0.002 ng/mL See_Comment [Au tomated message] The [id number]) system which ge nerated this result tra nsmitted reference range : <=0.034. The reference r juan manuel was not used to int erpret this result as normal/abnormal . SERGEY (test code = SERGEY) Reference (Normal) Range (defined by the 99th percentile reference limit): <= 0.034 ng/mL Note: Cardiac troponin begins to rise 3-4 hours after the onset of ischemia. Repeat in 4-6 hours if the sample was drawn within 3-4 hours of the onset of the symptom and found normal. Diagnosis of myocardial injury is made with acute changes in cTn concentrations with at least one serial sample above the 99th percentile upper reference limit (URL), taken together with the patient's clinical presentation. Biotin has been reported to cause a negative bias, interpret results relative to patient's use of biotin. Lab Interpretation Normal (test code = 17131-8) [facility] [id number] 05:10:59 Test Item Value Reference Interpretation Comments Range TROPONIN I (test 0.002 ng/mL See_Comment [Automated code = [id number]) message] The system which generated this result transmitted reference range : <=0.034. The reference range was not used to interpret this result as normal/abnormal . SERGEY (test code = Reference (Normal) SERGEY) Range (defined by the 99th percentile reference limit): <= 0.034 ng/mL Note: Cardiac troponin begins to rise 3-4 hours after the onset of ischemia. Repeat in 4-6 hours if the sample was drawn within 3-4 hours of the onset of the symptom and found normal. Diagnosis of myocardial injury is made with acute changes in cTn concentrations with at least one serial sample above the 99th percentile upper reference limit (URL), taken together with the patient's clinical presentation. Biotin has been reported to cause a negative bias, interpret results relative to patient's use of biotin. Lab Interpretation Normal (test code = 02518-2) [facility]-[id number] 05:01:11 Test Item Value Reference Interpretation Comments Range D-DIMER (test code = <0.27 See_Comment [Autom ated [id number]) message] The system which generated this result transmitted reference range : <0.41 ?g/mL (FEU). The reference range was not used to interpret this result as normal/abnormal . SERGEY (test code = This test may be SERGEY) used in conjunction with a clinical pretest probability (PTP) assessment model to exclude venous thromboembolism (VTE) in patients suspected of deep venous thrombosis (DVT) and pulmonary embolism (PE) A D-Dimer value less than 0.50 ?g/ml (FEU) has a negative predicative value of 96 to 100% (95% CI)and 97 to 100% (95% CI) as an aid in the diagnosis of deep vein thrombosis (DVT) and pulmonary embolism when there is low or moderate pretest probability of PE or DVT. D-Dimer values are expressed in initial fibrinogen equivalent units (FEU)" The assay results should be used with other information, including the clinical context, in forming a diagnosis. Lab Interpretation Normal (test code = 34153-3) [facility]-[id number] 05:01:11 Test Item Value Reference Interpretation Comments Range D-DIMER (test code = <0.27 See_Comment [Autom ated [id number]) message] The system which generated this result transmitted reference range : <0.41 ?g/mL (FEU). The reference range was not used to interpret this result as normal/abnormal . SERGEY (test code = This test may be SERGEY) used in conjunction with a clinical pretest probability (PTP) assessment model to exclude venous thromboembolism (VTE) in patients suspected of deep venous thrombosis (DVT) and pulmonary embolism (PE) A D-Dimer value less than 0.50 ?g/ml (FEU) has a negative predicative value of 96 to 100% (95% CI)and 97 to 100% (95% CI) as an aid in the diagnosis of deep vein thrombosis (DVT) and pulmonary embolism when there is low or moderate pretest probability of PE or DVT. D-Dimer values are expressed in initial fibrinogen equivalent units (FEU)" The assay results should be used with other information, including the clinical context, in forming a diagnosis. Lab Interpretation Normal (test code = 74523-0) [facility]. METABOLIC PANEL ([id number])2021-01-08 05:00:35 Test Item Value Reference Range Interpretation Comments NA (test code = 137 mmol/L 135-145 6146201598) K (test code = 4.7 mmol/L 3.5-5.0 4225978129) CL (test code = 102 mmol/L 98-108 9671063054) CO2 TOTAL (test code = 24 mmol/L 23-31 7295107238) AGAP (test code = 2-16 0445824360) BUN (test code = 20 mg/dL 7-23 9613684745) GLUCOSE (test code = 107 mg/dL 70-110 0501627658) CREATININE (test code = 0.86 mg/dL 0.60-1.25 5753081391) TOTAL BILI (test code = 0.7 mg/dL 0.1-1.8 4190292011) CALCIUM (test code = 9.9 mg/dL 8.6-10.6 9922196369) T PROTEIN (test code = 9.3 g/dL 6.3-8.2 H 1837807481) ALBUMIN (test code = 5.1 g/dL 3.5-5.0 H 6468735548) ALK PHOS (test code = 103 U/L 34-122 6390556320) ALTv (test code = 42 U/L 5-50 1742-6) AST(SGOT) (test code = 41 U/L 13-40 H 4737501257) eGFR (test code = mL/min/1.73m2 9405207445) SERGEY (test code = SERGEY) Association of Glomerular Filtration Rate (GFR) and Staging of Kidney Disease* + --+ --+ ------+| GFR (mL/min/1.73 m2) ?| With Kidney Damage ?| ?Without Kidney Damage+ --------+ --------+ +| ?>90 ?| ?Stage one ?| ? Normal ?+ ---+ ---+ -------+| ?60-89 ?| ?Stage two ?| ? Decreased GFR ? + --+ --+ ------+| ?30-59 ?| ?Stage three ?| ? Stage three ? + --+ --+ ------+| ?15-29 ?| ?Stage four ? | ? Stage four ?+ ---+ ---+ -------+| ?<15 (or dialysis) ? ?| ?Stage five ? | ? Stage five ?+ ---+ ---+ -------+ *Each stage assumes the associated GFR level has been in effect for at least three months. ?Stages 1 to 5, with or without kidney disease, indicate chronic kidney disease. Notes: Determination of stages one and two (with eGFR >59mL/min/1.73 m2) requires estimation of kidney damage for at least three months as defined by structural or functional abnormalities of the kidney, manifested by either:Pathological abnormalities or Markers of kidney damage (including abnormalities in the composition of the blood or urine or abnormalities in imaging tests). Lab Interpretation Abnormal (test code = 81233-8) [facility]. METABOLIC PANEL ([id number])2021-01-08 05:00:35 Test Item Value Reference Range Interpretation Comments NA (test code = 137 mmol/L 135-145 7672470207) K (test code = 4.7 mmol/L 3.5-5.0 0223128398) CL (test code = 102 mmol/L 98-108 5708594258) CO2 TOTAL (test code = 24 mmol/L 23-31 4026333418) AGAP (test code = 2-16 7776462914) BUN (test code = 20 mg/dL 7-23 6775563510) GLUCOSE (test code = 107 mg/dL 70-110 6723472986) CREATININE (test code = 0.86 mg/dL 0.60-1.25 2045210820) TOTAL BILI (test code = 0.7 mg/dL 0.1-1.2 3346017352) CALCIUM (test code = 9.9 mg/dL 8.6-10.6 6242643817) T PROTEIN (test code = 9.3 g/dL 6.3-8.2 H 2206646821) ALBUMIN (test code = 5.1 g/dL 3.5-5.0 H 8846625712) ALK PHOS (test code = 103 U/L 34-122 1421463319) ALTv (test code = 42 U/L 5-50 1742-6) AST(SGOT) (test code = 41 U/L 13-40 H 6748015578) eGFR (test code = mL/min/1.73m2 7466541179) SERGEY (test code = SERGEY) Association of Glomerular Filtration Rate (GFR) and Staging of Kidney Disease* + --+ --+ ------+| GFR (mL/min/1.73 m2) ?| With Kidney Damage ?| ?Without Kidney Damage+ --------+ --------+ +| ?>90 ?| ?Stage one ?| ? Normal ?+ ---+ ---+ -------+| ?60-89 ?| ?Stage two ?| ? Decreased GFR ? + --+ --+ ------+| ?30-59 ?| ?Stage three ?| ? Stage three ? + --+ --+ ------+| ?15-29 ?| ?Stage four ? | ? Stage four ?+ ---+ ---+ -------+| ?<15 (or dialysis) ? ?| ?Stage five ? | ? Stage five ?+ ---+ ---+ -------+ *Each stage assumes the associated GFR level has been in effect for at least three months. ?Stages 1 to 5, with or without kidney disease, indicate chronic kidney disease. Notes: Determination of stages one and two (with eGFR >59mL/min/1.73 m2) requires estimation of kidney damage for at least three months as defined by structural or functional abnormalities of the kidney, manifested by either:Pathological abnormalities or Markers of kidney damage (including abnormalities in the composition of the blood or urine or abnormalities in imaging tests). Lab Interpretation Abnormal (test code = 52984-2) [facility] WITH [id number] 04:45:37 Test Item Value Reference Range Interpretation Comments WBC (test code = See_Comment [Automated 6290-2) message] The sy stem which generated this result transmitted reference range : 4.20 - 10.70 10*3/?L. The reference range was not used to interpret this result as normal/abnormal . RBC (test code = See_Comment [Automated 789-8) message] The sy stem which generated this result transmitted reference range : 4.26 - 5.52 10*6/?L. The reference range was not used to interpret this result as normal/abnormal . HGB (test code = 15.9 g/dL 12.2-16.4 718-7) HCT (test code = 46.1 % 38.4-49.3 4544-3) MCV (test code = 89.2 fL 81.7-95.6 787-2) MCH (test code = 30.8 pg 26.1-32.7 785-6) MCHC (test code = 34.5 g/dL 31.2-35.0 786-4) RDW-SD (test code = 41.2 fL 38.5-51.6 30153-1) RDW-CV (test code = 12.6 % 12.1-15.4 788-0) PLT (test code = See_Comment [Automated 777-3) message] The sy stem which generated this result transmitted reference range : 150 - 328 10*3/ ?L. The reference r juan manuel was not used to interpret this result as normal/abnormal . MPV (test code = 11.9 fL 9.8-13.0 11332-5) NRBC/100 WBC (test See_Comment [Automat ed code = 3755511818) message] The system which generated this result transmitted reference range : 0.0 - 10.0 /100 WBCs. The refer ence range was not u sed to interpret th is result as normal/abnormal . NRBC x10^3 (test code <0.01 See_Comment [Auto mated = 6633056050) message] The s ystem which generated this result transmitted reference range : 10*3/?L. The reference range was not used to interpret this result as normal/abnormal . GRAN MAT (NEUT) % 73.5 % (test code = 770-8) IMM GRAN % (test code 0.40 % = 2542136646) LYMPH % (test code = 18.5 % 736-9) MONO % (test code = 6.8 % 5905-5) EOS % (test code = 0.2 % 713-8) BASO % (test code = 0.6 % 706-2) GRAN MAT x10^3(ANC) 7.50 10*3/uL 1.99-6.95 H (test code = 3758881087) IMM GRAN x10^3 (test 0.04 10*3/uL 0.00-0.06 code = 4765264587) LYMPH x10^3 (test code 1.89 10*3/uL 1.09-3.23 = 731-0) MONO x10^3 (test code 0.69 10*3/uL 0.36-1.02 = 742-7) EOS x10^3 (test code = <0.03 0.06-0.53 L 711-2) BASO x10^3 (test code 0.06 10*3/uL 0.01-0.09 = 704-7) Lab Interpretation Abnormal (test code = 98941-3) [facility] WITH [id number] 04:45:37 Test Item Value Reference Range Interpretation Comments WBC (test code = See_Comment [Automated 9490-2) message] The sy stem which generated this result transmitted reference range : 4.20 - 10.70 10*3/?L. The reference range was not used to interpret this result as normal/abnormal . RBC (test code = See_Comment [Automated 599-8) message] The sy stem which generated this result transmitted reference range : 4.26 - 5.52 10*6/?L. The reference range was not used to interpret this result as normal/abnormal . HGB (test code = 15.9 g/dL 12.2-16.4 718-7) HCT (test code = 46.1 % 38.4-49.3 4544-3) MCV (test code = 89.2 fL 81.7-95.6 787-2) MCH (test code = 30.8 pg 26.1-32.7 785-6) MCHC (test code = 34.5 g/dL 31.2-35.0 786-4) RDW-SD (test code = 41.2 fL 38.5-51.6 67564-8) RDW-CV (test code = 12.6 % 12.1-15.4 788-0) PLT (test code = See_Comment [Automated 777-3) message] The sy stem which generated this result transmitted reference range : 150 - 328 10*3/ ?L. The reference r juan manuel was not used to interpret this result as normal/abnormal . MPV (test code = 11.9 fL 9.8-13.0 37852-7) NRBC/100 WBC (test See_Comment [Automat ed code = 6483172377) message] The system which generated this result transmitted reference range : 0.0 - 10.0 /100 WBCs. The refer ence range was not u sed to interpret th is result as normal/abnormal . NRBC x10^3 (test code <0.01 See_Comment [Auto mated = 7578709760) message] The s ystem which generated this result transmitted reference range : 10*3/?L. The reference range was not used to interpret this result as normal/abnormal . GRAN MAT (NEUT) % 73.5 % (test code = 770-8) IMM GRAN % (test code 0.40 % = 7458604816) LYMPH % (test code = 18.5 % 736-9) MONO % (test code = 6.8 % 5905-5) EOS % (test code = 0.2 % 713-8) BASO % (test code = 0.6 % 706-2) GRAN MAT x10^3(ANC) 7.50 10*3/uL 1.99-6.95 H (test code = 3084350815) IMM GRAN x10^3 (test 0.04 10*3/uL 0.00-0.06 code = 5153466877) LYMPH x10^3 (test code 1.89 10*3/uL 1.09-3.23 = 731-0) MONO x10^3 (test code 0.69 10*3/uL 0.36-1.02 = 742-7) EOS x10^3 (test code = <0.03 0.06-0.53 L 711-2) BASO x10^3 (test code 0.06 10*3/uL 0.01-0.09 = 704-7) Lab Interpretation Abnormal (test code = 86307-0) [facility] [id number] 16:02:17 Fracture remains in stable positionUnW[facility] ParkwayLactic Acid Whole [id number] 03:25:00 Test Item Value Reference Range Interpretation Comments LACTIC ACID (test code = 1.30 mmol/L 9667093865) [facility]ysis[facility] 01:33:00 Test Item Value Reference Range Interpretation Comments APPEARANCE (test code = Clear Clear 1365069216) COLOR (test code = Yellow Yellow 1870816296) PH (test code = 4.8-8.0 8976397403) SP GRAVITY (test code = 1.003-1.030 3304235936) GLU U QUAL (test code = Normal Normal 3549245409) BLOOD (test code = Negative Negative 1581101749) KETONES (test code = Negative Negative 9700653320) PROTEIN (test code = 30 mg/dL Negative A 2887-8) UROBILIN (test code = Normal Normal 9685422192) BILIRUBIN (test code = Negative Negative 1623387886) NITRITE (test code = Negative Negative 9588262898) LEUK STACY (test code = Negative Negative 4852602887) RBC/HPF (test code = See_Comment [Autom ated message] 5777658930) The system [employer] generated this result transmitted ref erence range: 0 - 3 HP F. The reference range was not used to int erpret this result as normal/abnormal . WBC/HPF (test code = <1 See_Comment [Autom ated message] 5447441969) The system [employer] generated this result transmitted ref erence range: 0 - 5 HP F. The reference range was not used to int erpret this result as normal/abnormal . BACTERIA (test code = Negative Negative 3103333674) MUCOUS (test code = Moderate Negative LPF A 0079524046) Lab Interpretation (test Abnormal code = 48986-7) [facility] Metabolic Panel (NA, K, CL, CO2, GLUCOSE, BUN, CREATININE, CA)2019-12-06 01:25:00 Test Item Value Reference Range Interpretation Comments NA (test code = 138 mmol/L 135-145 0369155072) K (test code = 3.9 mmol/L 3.5-5 4961395134) CL (test code = 101 mmol/L 98-108 9409622537) CO2 TOTAL (test code = 25 mmol/L 23-31 0442987490) AGAP (test code = 2-16 7691461527) BUN (test code = 12 mg/dL 7-23 1935484308) GLUCOSE (test code = 119 mg/dL 70-110 H 1147458306) CREATININE (test code = 0.77 mg/dL 0.6-1.25 9491992649) CALCIUM (test code = 10.4 mg/dL 8.6-10.6 9248385759) eGFR Calculation mL/min/1.73m2 (Non-) (test code = 9010702367) eGFR Calculation mL/min/1.73m2 () (test code = 6779883133) SERGEY (test code = SERGEY) Association of Glomerular Filtration Rate (GFR) and Staging of Kidney Disease* + --+ --+ ------+| GFR (mL/min/1.73 m2) ?| With Kidney Damage ?| ?Without Kidney Damage+ --------+ --------+ +| ?>90 ?| ?Stage one ?| ? Normal ?+ ---+ ---+ -------+| ?60-89 ?| ?Stage two ?| ? Decreased GFR ? + --+ --+ ------+| ?30-59 ?| ?Stage three ?| ? Stage three ? + --+ --+ ------+| ?15-29 ?| ?Stage four ? | ? Stage four ?+ ---+ ---+ -------+| ?<15 (or dialysis) ? ?| ?Stage five ? | ? Stage five ?+ ---+ ---+ -------+ *Each stage assumes the associated GFR level has been in effect for at least three months. ?Stages 1 to 5, with or without kidney disease, indicate chronic kidney disease. Notes: Determination of stages one and two (with eGFR >59mL/min/1.73 m2) requires estimation of kidney damage for at least three months as defined by structural or functional abnormalities of the kidney, manifested by either:Pathological abnormalities or Markers of kidney damage (including abnormalities in the composition of the blood or urine or abnormalities in imaging tests). Lab Interpretation Abnormal (test code = 72680-0) [facility] (ALB, T.PRO, BILI T, BU/BC, ALT, AST, ALK PHOS)2019-12-06 01:25:00 Test Item Value Reference Range Interpretation Comments TOTAL BILI (test code = 4896155933) 1.0 mg/dL 0.1-1.1 BILI UNCON (test code = 3145268683) 0.9 mg/dL 0.1-1.1 BILI CONJ (test code = 7207014512) 0.0 mg/dL 0-0.3 T PROTEIN (test code = 0758554175) 9.1 g/dL 6.3-8.2 H ALBUMIN (test code = 6417420138) 5.1 g/dL 3.5-5 H ALK PHOS (test code = 7265724282) 101 U/L 34-122 ALTv (test code = 1742-6) 46 U/L 5-50 AST(SGOT) (test code = 2551676695) 34 U/L 13-40 Lab Interpretation (test code = Abnormal 64563-7) [facility] with [id number] 01:21:00 Test Item Value Reference Range Interpretation Comments WBC (test code = See_Comment [Automated 6303-2) message] The sy stem which generated this result transmitted reference range : 4.20 - 10.70 10*3/?L. The reference range was not used to interpret this result as normal/abnormal . RBC (test code = See_Comment [Automated 789-8) message] The sy stem which generated this result transmitted reference range : 4.26 - 5.52 10*6/?L. The reference range was not used to interpret this result as normal/abnormal . HGB (test code = 15.6 g/dL 12.2-16.4 718-7) HCT (test code = 44.7 % 38.4-49.3 4544-3) MCV (test code = 88.2 fL 81.7-95.6 787-2) MCH (test code = 30.8 pg 26.1-32.7 785-6) MCHC (test code = 34.9 g/dL 31.2-35 786-4) RDW-SD (test code = 40.2 fL 38.5-51.6 68848-0) RDW-CV (test code = 12.5 % 12.1-15.4 788-0) PLT (test code = See_Comment H [Automated 777-3) message] The sy stem which generated this result transmitted reference range : 150 - 328 10*3/ ?L. The reference r juan manuel was not used to interpret this result as normal/abnormal . MPV (test code = 11.2 fL 9.8-13 58969-9) NRBC/100 WBC (test See_Comment [Automat ed code = 4825609742) message] The system which generated this result transmitted reference range : 0.0 - 10.0 /100 WBCs. The refer ence range was not u sed to interpret th is result as normal/abnormal . NRBC x10^3 (test code <0.01 See_Comment [Auto mated = 3390779691) message] The s ystem which generated this result transmitted reference range : 10*3/?L. The reference range was not used to interpret this result as normal/abnormal . GRAN MAT (NEUT) % 74.8 % (test code = 770-8) IMM GRAN % (test code 0.20 % = 7951773597) LYMPH % (test code = 18.9 % 736-9) MONO % (test code = 5.4 % 5905-5) EOS % (test code = 0.4 % 713-8) BASO % (test code = 0.3 % 706-2) GRAN MAT x10^3(ANC) 6.97 10*3/uL 1.99-6.95 H (test code = 3971968459) IMM GRAN x10^3 (test <0.03 0-0.06 code = 0816722001) LYMPH x10^3 (test code 1.76 10*3/uL 1.09-3.23 = 731-0) MONO x10^3 (test code 0.50 10*3/uL 0.36-1.02 = 742-7) EOS x10^3 (test code = 0.04 10*3/uL 0.06-0.53 L 711-2) BASO x10^3 (test code 0.03 10*3/uL 0.01-0.09 = 704-7) Lab Interpretation Abnormal (test code = 93796-3) [facility] [id number] 01:02:00 Test Item Value Reference Range Interpretation Comments LACTIC ACID (test code = 2.92 mmol/L 2434853150) [facility]
[2021-10-24 02:36] LABS: Urine Blood Negative (Negative); Urine Glucose Negative (Negative); Urine Protein Negative (Negative); Urine Specific Gravity 1.025 (1.005-1.030); Urine pH 5.5 (5.0-7.0)
[2021-10-24 02:57] LABS: Absolute Lymphocytes (CBC) 2.7 K/uL (0.7-4.9); Lymphocytes % 26.9 % (15.3-44.8); MPV 9.6 fL (7.6-11.3); RBC Red Blood Cell Count 5.04 M/uL (4.33-5.43)
[2021-10-24 02:58] LABS: Protime INR 0.99
[2021-10-24 03:04] LABS: Barbiturates NEGATIVE (NEGATIVE); Benzodiazepines NEGATIVE (NEGATIVE); Cocaine NEGATIVE (NEGATIVE); METHAMPHETAM NEGATIVE (NEGATIVE); Methadone NEGATIVE (NEGATIVE); Opiates NEGATIVE (NEGATIVE); Phencyclidine NEGATIVE (NEGATIVE); THC Cannibis NEGATIVE (NEGATIVE)
[2021-10-24 03:15] LABS: ALT/SGPT 32 U/L (12-78); AST/SGOT 13 U/L (15-37); Albumin 4.1 g/dL (3.4-5.0); Alkaline Phosphatase 92 U/L (45-117); BUN Blood Urea Nitrogen 11 mg/dL (7-18); Bicarbonate 28 mmol/L (21-32); Bilirubin Total 0.3 mg/dL (0.2-1.0); Creatine Phosphokinase 104 U/L (39-308); Glomerular Filtration Rate 108 ml/min (=/>90); Glucose Level 107 mg/dL (74-106); NT PRO-BNP 100 pg/mL (<125); Protein, Total 7.8 g/dL (6.4-8.2); Sodium Level 138 mmol/L (136-145); Troponin High Sensitivity 5.1 pg/mL (<58.9)
[2021-10-24 03:17] LABS: Bilirubin Direct < 0.1 mg/dL (0-0.2)
--- NOTE | 2021-10-24 04:05 | EDPHYS ---
Physician Documentation [facility] Name: Keny Kyle Age: 21 yrs Sex: Male : 2000 Arrival Date: 10/23/2021 Time: 21:31 Bed 11 Private MD: ED Physician Mandeep Abbott HPI: 10/24 01:05 This 21 yrs old Male presents to ER via Ambulatory with complaints of Anxiety. mh7 01:05 The patient presents to the emergency department with anxiety, over unknown mh7 circumstances. Onset: The symptoms/episode began/occurred yesterday. Past psychiatric history: Prior diagnosis: no previous psychiatric diagnosis known, Psychiatric medications include: none, Primary psychiatric physician: the patient does not have a primary psychiatric physician, the patient has not had a prior suicide gesture, the patient does not have a previous inpatient psychiatric history, the patient's last psychiatric treatment was none. Associated signs and symptoms: Pertinent positives; anxiety, chest pain, palpitations, shortness of breath, Pertinent negatives: abdominal pain, chills, delusions, depression, fever, hallucinations, headache, homicidal ideation, nausea, night sweats, substance abuse, suicide ideation, tremor, vomiting. Severity of symptoms: At their worst the symptoms were moderate last night, in the emergency department the symptoms have improved moderately. The patient has experienced similar episodes in the past, a few times. Historical: - Allergies: 10/23 22:34 No Known Allergies; vc1 - Home Meds: 22:34 None [Active]; vc1 - PMHx: 22:34 broken foot/infection; vc1 - PSHx: 22:34 None; vc1 - Immunization history:: Adult Immunizations up to date, Client reports having NOT received the Covid vaccine. - Social history:: Smoking status: Patient reports the use of cigarette tobacco products, smokes one-half pack cigarettes per day. ROS: 10/24 01:05 Constitutional: Negative for fever, chills, and weight loss, Eyes: Negative for injury, mh7 pain, redness, and discharge, ENT: Negative for injury, pain, and discharge, Neck: Negative for injury, pain, and swelling, Abdomen/GI: Negative for abdominal pain, nausea, vomiting, diarrhea, and constipation, Back: Negative for injury and pain, : Negative for injury, bleeding, discharge, and swelling, MS/Extremity: Negative for injury and deformity, Skin: Negative for injury, rash, and discoloration, Neuro: Negative for headache, weakness, numbness, tingling, and seizure, Allergy/Immunology: Negative for hives, rash, and allergies, Endocrine: Negative for neck swelling, polydipsia, polyuria, polyphagia, and marked weight changes, Hematologic/Lymphatic: Negative for swollen nodes, abnormal bleeding, and unusual bruising. Psych: Negative for depression, drug dependence, alcohol dependence, auditory hallucinations, visual hallucinations, homicidal ideation, insomnia, suicide gesture, suicidal ideation. Exam: 01:05 Constitutional: This is a well developed, well nourished patient who is awake, alert, mh7 and in no acute distress. Head/Face: Normocephalic, atraumatic. Eyes: Pupils equal round and reactive to light, extra-ocular motions intact. Lids and lashes normal. Conjunctiva and sclera are non-icteric and not injected. Cornea within normal limits. Periorbital areas with no swelling, redness, or edema. Neck: Trachea midline, no thyromegaly or masses palpated, and no cervical lymphadenopathy. Supple, full range of motion without nuchal rigidity, or vertebral point tenderness. No Meningismus. 01:05 Cardiovascular: Regular rate and rhythm with a normal S1 and S2. No gallops, murmurs, or rubs. Normal PMI, no JVD. No pulse deficits. Respiratory: Lungs have equal breath sounds bilaterally, clear to auscultation and percussion. No rales, rhonchi or wheezes noted. No increased work of breathing, no retractions or nasal flaring. Abdomen/GI: Soft, non-tender, with normal bowel sounds. No distension or tympany. No guarding or rebound. No evidence of tenderness throughout. Back: No spinal tenderness. No costovertebral tenderness. Full range of motion. Skin: Warm, dry with normal turgor. Normal color with no rashes, no lesions, and no evidence of cellulitis. MS/ Extremity: Pulses equal, no cyanosis. Neurovascular intact. Full, normal range of motion. Neuro: Awake and alert, GCS 15, oriented to person, place, time, and situation. Cranial nerves II-XII grossly intact. Motor strength 5/5 in all extremities. Sensory grossly intact. Cerebellar exam normal. Normal gait. Psych: Awake, alert, with orientation to person, place and time. Behavior, mood, and affect are within normal limits. 01:05 Chest/axilla: Inspection: normal, Palpation: tenderness, that is moderate, of the anterior aspect of left upper chest, that totally reproduces the patient's complaints, Axilla: are normal, Lymph nodes: lymphadenopathy is not appreciated. Vital Signs: 10/23 22:32 BP 133 / 86; Pulse 84; Resp 18; Temp 99.0; Pulse Ox 99% ; Weight 123.38 kg; Height 5 vc1 ft. 10 in. (177.80 cm); Pain 7/10; 10/24 02:31 BP 118 / 68; Pulse 64; Resp 16 S; Pulse Ox 100% on R/A; bb 04:23 BP 118 / 61; Pulse 51; Resp 16 S; Pulse Ox 100% on R/A; bb 10/23 22:32 Body Mass Index 39.03 (123.38 kg, 177.80 cm) vc1 MDM: 04:01 Differential diagnosis: acute psychotic break, depression, chest pain, anxiety. Data [facility] reviewed: vital signs, nurses notes, lab test result(s), cardiac enzymes, CBC, electrolytes, EKG, radiologic studies, plain films. Data interpreted: Pulse oximetry: on room air is 100 %. Interpretation: normal. Counseling: I had a detailed discussion with the patient and/or guardian regarding: the historical points, exam findings, and any diagnostic results supporting the discharge/admit diagnosis, lab results, radiology results, the need for outpatient follow up, an military administrative technician, to return to the emergency department if symptoms worsen or persist or if there are any questions or concerns that arise at home. Response to treatment: the patient's symptoms have resolved after treatment, the patient's blood pressure is in an acceptable range, mental status has returned to baseline, the patient no longer shows bradycardia, the patient is not short of breath, the patient is not tachycardic, the patient's pain is gone, the patient's temperature has normalized, the patient is now symptom free, patient is well hydrated. 04:04 Patient medically screened. [facility] 10/24 01:39 Order name: Basic Metabolic Panel; Complete Time: 03: [facility] 10/24 01:39 Order name: CBC with Diff; Complete Time: : [facility] 10/24 01:39 Order name: LFT's; Complete Time: 03: [facility] 10/24 01:39 Order name: Magnesium; Complete Time: 03: [facility] 10/24 01:39 Order name: NT PRO-BNP; Complete Time: 03: [facility] 10/24 01:39 Order name: PT-INR; Complete Time: 03: [facility] 10/24 01:39 Order name: Troponin HS; Complete Time: 03: [facility] 10/24 01:39 Order name: XRAY Chest (1 view) [facility] 10/24 01:39 Order name: TSH; Complete Time: 03: [facility] 10/24 01:39 Order name: CPK; Complete Time: 03: [facility] 10/24 01:39 Order name: D-Dimer; Complete Time: 03: [facility] 10/24 01:39 Order name: UDS; Complete Time: 03: [facility] 10/24 02:36 Order name: Urine Dipstick-Ancillary; Complete Time: 03: [facility] 10/24 03:19 Order name: T4 Free; Complete Time: 03: [facility] 10/24 01:39 Order name: EKG; Complete Time: 01:40 [facility] 10/24 01:39 Order name: EKG - Nurse/Tech; Complete Time: 03:02 [facility] 10/24 01:39 Order name: IV Saline Lock; Complete Time: 02:33 10/24 01:39 Order name: Labs collected and sent; Complete Time: 02:33 [facility] 10/24 01:39 Order name: O2 Per Protocol; Complete Time: 02: [facility] 10/24 01:39 Order name: O2 Sat Monitoring; Complete Time: 02:33 [facility] Administered Medications: No medications were administered Disposition Summary: 10/24/21 04:04 Discharge Ordered Location: Home [facility] Problem: an acute exacerbation [facility] Symptoms: have improved [facility] Condition: Stable [facility] Diagnosis - Anxiety disorder, unspecified [facility] - Chest pain, unspecified 7 Followup: [facility] - With: Private Physician - When: 1 - 2 days - Reason: Worsening of condition, Recheck today's complaints, Continuance of care, Re-evaluation by your physician Discharge Instructions: - Discharge Summary Sheet [facility] - Panic Attack mh7 - Nonspecific Chest Pain, Adult [facility] - Form - Excuse from Work, School, or Physical Activity [facility] Forms: - Work release form mw2 - Family Work Release mw2 - Medication Reconciliation Form 7 - Thank You Letter 7 - Antibiotic Education 7 - Prescription Opioid Use [facility] Signatures: Dispatcher [employer] Mandeep Gutierrez MD MD [facility] Aline Keyes RN RN vc1
--- NOTE | 2021-10-24 04:05 | ER ---
Nurse's Notes [facility] Name: Keny Kyle Age: 21 yrs Sex: Male : 2000 Arrival Date: 10/23/2021 Time: 21:31 Bed 11 Private MD: Diagnosis: Anxiety disorder, unspecified;Chest pain, unspecified Presentation: 10/23 22:32 Chief complaint: Patient states: "I started feeling really anxious this morning, it vc1 went away but then it came back. Coronavirus screen: Vaccine status: Patient reports being unvaccinated. At this time, the client does not indicate any symptoms associated with coronavirus-19. Ebola Screen: No symptoms or risks identified at this time. Initial Sepsis Screen: Does the patient meet any 2 criteria? Yes Does the patient have a suspected source of infection? No. Patient's initial sepsis screen is negative. Risk Assessment: Do you want to hurt yourself or someone else? Patient reports no desire to harm self or others. Onset of symptoms is unknown. 22:32 Method Of Arrival: Ambulatory vc1 22:32 Acuity: MARI 4 vc1 Triage Assessment: 22:34 General: Appears in no apparent distress. uncomfortable, Behavior is anxious. Pain: vc1 Complains of pain in chest Pain does not radiate. Pain currently is 7 out of 10 on a pain scale. Quality of pain is described as sharp. Neuro: Level of Consciousness is awake, Oriented to person, place, time, situation, Appropriate for age. Cardiovascular: Capillary refill < 3 seconds Patient's skin is warm and dry. Respiratory: Airway is patent Respiratory effort is even, unlabored, Respiratory pattern is regular, symmetrical. GI: No deficits noted. : No deficits noted. Derm: No deficits noted. Musculoskeletal: No deficits noted. Historical: - Allergies: 22:34 No Known Allergies; vc1 - Home Meds: 22:34 None [Active]; vc1 - PMHx: 22:34 broken foot/infection; vc1 - PSHx: 22:34 None; vc1 - Immunization history:: Adult Immunizations up to date, Client reports having NOT received the Covid vaccine. - Social history:: Smoking status: Patient reports the use of cigarette tobacco products, smokes one-half pack cigarettes per day. Screenin/27 02:31 Abuse screen: Denies threats or abuse. Nutritional screening: No deficits noted. bb Tuberculosis screening: No symptoms or risk factors identified. Fall Risk None identified. Assessment: 02:31 General: Appears in no apparent distress. Behavior is calm, cooperative. Neuro: Level bb of Consciousness is awake, alert, obeys commands, Oriented to person, place, time, situation. Cardiovascular: Capillary refill < 3 seconds Patient's skin is warm and dry. Respiratory: Respiratory effort is even, labored. GI: No signs and/or symptoms were reported involving the gastrointestinal system. Derm: Skin is pink, warm \\T\\ dry. Musculoskeletal: Circulation, motion, and sensation intact. 04:22 Reassessment: Patient is alert, oriented x 3, equal unlabored respirations, skin bb warm/dry/pink. pt verbalized understanding of and agrees to plan of care discharge instructions given pt ambulated with steady gait to exit accompanied by spouse. Vital Signs: 10/23 22:32 BP 133 / 86; Pulse 84; Resp 18; Temp 99.0; Pulse Ox 99% ; Weight 123.38 kg; Height 5 vc1 ft. 10 in. (177.80 cm); Pain 7/10; 10/24 02:31 BP 118 / 68; Pulse 64; Resp 16 S; Pulse Ox 100% on R/A; bb 04:23 BP 118 / 61; Pulse 51; Resp 16 S; Pulse Ox 100% on R/A; bb 10/23 22:32 Body Mass Index 39.03 (123.38 kg, 177.80 cm) vc1 ED Course: 10/23 21:31 Patient arrived in ED. bp1 22:34 Triage completed. vc1 22:34 Arm band placed on right wrist. vc1 10/24 00:54 Mandeep Abbott MD is Attending Physician. 7 02:06 XRAY Chest (1 view) In Process Unspecified. EDMS 02:16 Nicolette Swanson, JURGEN is Primary Nurse. bb 02:25 Initial lab(s) drawn, by me, sent to lab. Urine collected: clean catch specimen, clear. bb Inserted saline lock: 20 gauge in right antecubital area, using aseptic technique. Blood collected. 02:31 Patient has correct armband on for positive identification. Bed in low position. Call bb light in reach. Side rails up X 1. Adult w/ patient. Pulse ox on. NIBP on. Warm blanket given. 04:23 No provider procedures requiring assistance completed. IV discontinued, intact, bb bleeding controlled, No redness/swelling at site. Pressure dressing applied. Administered Medications: No medications were administered Medication: 04:24 VIS not applicable for this client. bb Outcome: 04:04 Discharge ordered by . romina 04:23 Discharged to home ambulatory, with family. bb 04:23 Condition: stable 04:23 Discharge instructions given to patient, Instructed on discharge instructions, follow up and referral plans. Demonstrated understanding of instructions, follow-up care, pt given hand-out of community resources 04:24 Patient left the ED. bb Signatures: Dispatcher [employer] EDMS Nicolette Swanson, RN RN Jyotsna Tillman Maurice, MD MD 7 Aline Keyes RN RN vc1
[2021-10-24 04:40] VITALS: TEMP 99
[2021-10-24 04:42] VITALS: O2SAT 100
[2021-10-24 04:44] VITALS: BP 118/61
--- NOTE | 2021-10-24 14:38 | EKG ---
Test Date: 2021-10-24 Test Time: 02:56:00 Brush Cutter: SKYLAR MEASUREMENT RESULTS: Intervals: Rate: 54 FL: 138 QRSD: 88 QT: 396 QTc: 375 Camilla: P: 53 FL: 138 QRS: 75 T: 17 INTERPRETIVE STATEMENTS: Sinus bradycardia with sinus arrhythmia Nonspecific T wave abnormality Abnormal ECG Compared to ECG 04/03/2020 16:55:34 Sinus rhythm no longer present T-wave abnormality still present Electronically Signed On 10-24-21 14:37:28 CDT by Dano Bui
--- NOTE | 2021-10-24 20:09 | RAD REPORT ---
EXAM DESCRIPTION: RAD - Chest Single View - 10/24/2021 2:04 am CLINICAL HISTORY: 21 years Male, CHEST PAIN COMPARISON: None. TECHNIQUE: Single portable x-ray view of the chest performed on 10/24/2021 at 1:52 AM FINDINGS: The lungs are well expanded and are clear. There is no evidence of a pneumothorax. The rad iograph is lordotic in position. The cardiac silhouette is normal in size and configuration. The mediastinal contours are normal. No acute osseous abnormality is identified. No acute soft tissue abnormalities are seen. Lines and tubes: None. Free air: None IMPRESSION: No evidence of acute intrathoracic disease. Electronically signed by: Tejal Hinton DO 10/24/2021 3:09 AM CDT Due to temporary technical issues with the PACS/Fluency reporting system, reports are being signed by the in house radiologists without. review as a courtesy to insure prompt reporting. The interpreting radiologist is fully responsible for the content of the report.
== END 2021-10-24 04:24 | disposition home or self-care (01) ==
LOC: ER 21:28
DX: F41.9 Anxiety disorder, unspecified (principal); F17.210 Nicotine dependence, cigarettes, uncomplicated
CPT/HCPCS: 36415; 71045; 80048; 80076; 80307; 81003; 82550; 83735; 83880; 84439; 84443; 84484; 85025; 85379; 85610; 93005; 99284

== ENCOUNTER 2022-12-02 03:51 | Emergency (ER) | payer SELFPAY ==
--- OUTSIDE RECORDS SUMMARY | 2022-12-02 03:56 | XMS REPORT | Continuity of Care Document ---
:2000 Author Organization [facility] t Address [address] [place] [address] Care Team Providers Name Role Phone Pcp, Patient Does Not Have A Primary Care Physician [id number] REGGIE ALMEIDA Attending Clinician Unavailable Reggie Almeida MD Attending Clinician Don Bolivar Attending Clinician VALENTE SULLIVAN Attending Clinician Unavailable Valente Sullivan MD Attending Clinician Benjy Mixon Attending Clinician Nicci Engel RN Attending Clinician Unavailable Rolo Barrett Attending Clinician ROLO GIL Attending Clinician Unavailable Payers Payer Name Policy Type Policy Number Effective Date Expiration Date Christophe TEE II [id number] 2019 00:00:00 Problems Condition Condition Condition Status Onset Resolution Last Treating Co mments Source Name Details Category Date Date Treatment Clinician Date No known No known Disease Unive rs active active ity of problems problems [facility] Allergies, Adverse Reactions, Alerts Allergy Allergy Status Severity Reaction(s) Onset Inactive Treating Comm ents Source Name Type Date Date Clinician NO KNOWN Drug Active Univers ALLERGIE Class ity of S [facility] Social History Social Habit Start Date Stop Date Quantity Comments Source Exposure to 2022-03-10 2022-03-20 Not sure University SARS-CoV-2 00:00:00 23:32:00 [facility] (event) [place] Tobacco use and 2019-12-15 2019-12-15 Smokeless tobacco Un iversity of exposure 00:00:00 00:00:00 non-user [facility] Tobacco Comment 2019-12-02 2019-12-02 weed Universit y of 00:00:00 00:00:00 [facility] Sex Assigned At [birth year] Universit y of 00:00:00 00:00:00 [facility] Smoking Status Start Date Stop Date Source Tobacco smoking consumption Univ ersity [facility] Medications Ordered Filled Start Stop Current Ordering Indication Dosage Frequency Signature Comments Components Source Medication Medication Date Date Medication? Clinician (SIG) Name Name diphenhydrA 2021-04 No 25mg 25 mg, Uni vers MINE 05-21 Oral, ity of (BENADRYL) 06:30: 06:30 ONCE, 1 [place] tablet 25 00 :00 dose, On Medica l mg [facility] 03/21/22 at 0030, CAIT hydrOXYzine 2021-04 Yes [id number] 25mg Take 1 Univers (VISTARIL) 05-21 capsule by ity of 25 mg 00:00: mouth at [place] capsule 00 bedtime as Medica l needed for [place] Anxiety (to help sleep). SERTraline 2021-04 No [id number] 25mg Take 1 Univers (ZOLOFT) 25 05-21 12 tablet by it y of mg tablet 00:00: 05:59 mouth [place] 00 :00 daily for Medical 30 days. [place] LORazepam No 1mg 1 mg, Slow U nivers (ATIVAN) 01-08 IV Push, ity of injection 1 04:30: 04:23 [place]CE, 1 [place] mg 00 :00 dose, Fri [facility] 01/07/21 at Branch 2330, STAT NaCl 0.9% 2020-0 2020- No 1000mL at 999 Uni vers (NS) bolus 01-08 mL/hr, ity of infusion 04:30: 05:39 1,000 mL, [place] 1,000 mL 00 :00 IV Medical Piggyback, Branch ONCE, 1 dose, Sun01/07/21 at 2330, STAT LORazepam 2020-0 2020- No 1mg 1 mg, Slow U nivers (ATIVAN) 01-08 IV Push, ity of injection 1 04:30: 04:23 ONCE, 1 [place] mg 00 :[place] dose, Sun Medical 01/07/21 at Branch 2330, STAT NaCl 0.9% 0 2020- No 1000mL at 999 Uni vers (NS) bolus 01-08 mL/hr, ity of infusion 04:30: 05:39 1,000 mL, [place] as 1,000 mL 00 :00 IV Medical Piggyback, [place] ONCE, 1 dose, Sun01/07/21 at 2330, STAT hydrOXYzine 2020-0 Yes [id number] 50mg Take 1 Univers 50 mg 9-11 tablet by ity of tablet 00:00: mouth 3 [place] 00 (three) Medical times Branch daily as needed for Anxiety. hydrOXYzine 1-0 Yes [id number] 50mg Take 1 Univers 50 mg 9-11 tablet by ity of tablet 00:00: mouth 3 [place] 00 (three) Medical times Branch daily as needed for Anxiety. hydrOXYzine 2021-0 Yes [id number] 50mg Take 1 Univers 50 mg 9-11 tablet by ity of tablet 00:00: mouth 3 [place] 00 (three) Medical times Branch daily as needed for Anxiety. ciprofloxac 2020-0 2020- No 500mg Take 1 Un neris in HCl 8-28 tablet by ity of (CIPRO) 500 00:00: 04:59 mouth 2 [place] mg tablet 00 :00 (two) Medical times Branch daily for 10 days. ciprofloxac 2020-0 2020- No 500mg Take 1 Un neris in HCl 8 08-28 tablet by ity of (CIPRO) 500 00:00: 04:59 mouth 2 [place] mg tablet 00 :00 (two) Medical times Branch daily for 10 days. cephALEXin 2019-2019- No 500mg 500 mg, Un neris (KEFLEX) 12-05 Oral, ity of capsule 500 06:15: 05:07 ONCE, 1 [place] mg 00 :00 dose, Sat Medical 12/06/19 at Branch 0115, CAIT
Re ason for Anti-Infec tive: Documented Infection< br>Documen lisa Infection Site: Skin / Soft Tissue
Duration of Therapy: 7 days NaCl 0.9% 2019- 2020- No 30mL/kg at 999 Un neris (NS) bolus 12-05 mL/hr, ity of infusion 01:00: 04:41 2,121 mL [place] 2,121 mL 00 :00 (30 mL/kg Medica l ?70.7 kg Branch [place] weight), IV Infusion, ONCE, 1 dose, 12/05/19 at 2000, CAIT cephALEXin 2019-0 2020- No [id number] 500mg Take 1 Univers (KEFLEX) 12-05 [id number] capsule by it y of 500 mg [...] Time Observation Value Comments Source Systolic blood 2022-03-21 06:34:00 161 mm[Hg] Univer sity of pressure [facility] Diastolic blood 2022-03-21 06:34:00 83 mm[Hg] [facility] Heart rate 2022-03-21 06:34:00 85 /min [facility] Respiratory rate 2022-03-21 06:34:00 20 /min [facility] Oxygen saturation in 2022-03-21 06:34:00 98 /min [facility] Arterial blood by [facility] Pulse oximetry Branch Body temperature 2022-03-21 05:36:00 36.72 Fatimah [facility] Body height 2022-03-21 05:36:00 175.3 cm [facility] Body weight 2022-03-21 05:36:00 127.007 kg [facility] [place] [facility] BMI 2022-03-21 05:36:00 41.35 kg/m2 [facility] [place] [facility] Systolic blood 2021-01-08 05:39:54 150 mm[Hg] Univer sity of pressure [facility] Diastolic blood 2021-01-08 05:39:54 76 mm[Hg] Unive rsity of pressure [facility] Heart rate 2021-01-08 05:39:54 80 /min [facility]i ty [facility] [place] [facility] Respiratory rate 2021-01-08 05:39:54 20 /min Univ ersity of [facility] Oxygen saturation in 2021-01-08 05:39:54 99 /min University Arterial blood by [facility] Pulse oximetry Branch Body temperature 2021-01-08 01:55:00 37.39 Fatimah Univ ersity of [facility] Body height 2021-01-08 01:55:00 175.3 cm Universi ty of [place] [facility] [place] Body weight 2021-01-08 01:55:00 127.007 kg [facility] [place] [facility] BMI 2021-01-08 01:55:00 41.35 kg/m2 Universi ty of [facility] Systolic blood 2020-02-12 14:27:00 129 mm[Hg] Univer sity of pressure [place] [facility] Diastolic blood 2020-02-12 14:27:00 84 mm[Hg] Unive rsity of pressure [facility] Heart rate 2020-02-12 14:24:00 88 /min [facility] [place] [facility] Body height 2020-02-12 14:24:00 175.3 cm [facility] [place] [facility] Body weight 2020-02-12 14:24:00 122.471 kg [facility] [place] [facility] BMI 2020-02-12 14:24:00 39.87 kg/m2 Universi ty of [facility] Branch Systolic blood 2020-02-12 14:27:00 129 mm[Hg] Univer sity of pressure [facility] Branch Diastolic blood 2020-02-12 14:27:00 84 mm[Hg] Unive rsity of pressure [facility] Heart rate 2020-02-12 14:24:00 88 /min Universi ty [facility] [place] [facility] Body height 2020-02-12 14:24:00 175.3 cm [facility] [place] [facility] Body weight 2020-02-12 14:24:00 122.471 kg [facility] [place] [facility] BMI 2020-02-12 14:24:00 39.87 kg/m2 Universi ty of [facility] Branch Systolic blood 2019-12-15 20:29:00 125 mm[Hg] Univer sity of pressure [facility] Branch Diastolic blood 2019-12-15 20:29:00 84 mm[Hg] Unive rsity of pressure [place] [facility] Heart rate 2019-12-15 20:29:00 80 /min [facility]i [facility] [place] [facility] Body height 2019-12-15 20:27:00 177.8 cm [facility] [place] [facility] Body weight 2019-12-15 20:27:00 122.471 kg stated Universi ty of [facility] Branch BMI 2019-12-15 20:27:00 38.74 kg/m2 Universi ty of [facility] Branch Systolic blood 2019-12-06 05:00:00 134 mm[Hg] Univer sity of pressure [facility] Branch Diastolic blood 2019-12-06 05:00:00 90 mm[Hg] Unive rsity of pressure [facility] Branch Heart rate 2019-12-06 05:00:00 71 /min Universi ty of [facility] Branch Respiratory rate 2019-12-06 05:00:00 18 /min Univ ersity of [facility] Oxygen saturation in 2019-12-06 05:00:00 99 /min University of Arterial blood by [facility] Pulse oximetry Branch Body temperature 2019-12-06 00:10:33 37.28 Fatimah Univ ersity of [facility] Branch Body height 2019-12-06 00:06:00 175.3 cm [facility] [place] [facility] Body weight 2019-12-06 00:06:00 122.471 kg [facility] [place] [facility] BMI 2019-12-06 00:06:00 39.87 kg/m2 Universi ty of [facility] Branch Systolic blood 2019-12-02 13:25:00 134 mm[Hg] Univer sity of pressure [facility] Branch Diastolic blood 2019-12-02 13:25:00 91 mm[Hg] Unive rsity of pressure [facility] Branch Heart rate 2019-12-02 13:25:00 96 /min [facility] Body height 2019-12-02 13:20:00 175.3 cm [facility] Body weight 2019-12-02 13:20:00 122.471 kg [facility] BMI 2019-12-02 13:20:00 39.87 kg/m2 [facility] Procedures Procedure Date / Time Performing Clinician Source Performed URINE DRUG (IMMUNOASSAY) 2022-03-21 06:19:[address] [facility] OF PRIVACY 2022-03-21 05:33:33 [facility]igned, No [facility] FOR 2022-03-21 05:30:24 Doctor Unassigned, No Un iversity [facility] DIAGNOSIS AND TREATMENT [facility] TROPONIN I 2021-01-08 04:16:00 Don De [facility] COMP. METABOLIC PANEL 2021-01-08 04:16:00 Don [facility] [place] [id number] CBC WITH DIFF 2021-01-08 04:16:00 Don De [facility] D-DIMER 2021-01-08 04:16:00 Don De [facility] XR CHEST 1 VW 2021-01-08 03:06:01 Lon Gutierrez [facility] CONSENT/REFUSAL FOR 2021-01-08 01:42:28 Doctor Unassigned, No Un iversity of [place] DIAGNOSIS AND TREATMENT [facility] NOTICE OF PRIVACY 2021-01-08 01:41:57 Doctor Unassigned, No [facility] XR FOOT <3 VW LEFT 2020-02-12 14:48:21 Valente Sullivan [facility] LACTIC ACID WHOLE BLOOD 2019-12-06 03:20:00 [facility] 2019-12-06 01:00:00 Benjy Gage Felda o [facility] BLOOD CULTURE SCREEN 2019-12-06 00:53:00 Benjy Gage [facility] HEPATIC FUNCTION PANEL 2019-12-06 00:53:00 Benjy Gage [facility] ([id number]) (ALB,T.PRO,BILI Medical Branch T,BU/BC,ALT,AST,ALK PHOS) BASIC METABOLIC PANEL 2019-12-06 00:53:00 Benjy Gage [facility] (NA, K, CL, CO2, Medical Branch GLUCOSE, BUN, CREATININE, CA) CBC WITH DIFF 2019-12-06 00:53:00 Benjy Gage [facility] LACTIC ACID WHOLE BLOOD 2019-12-06 00:53:00 Benjy Gage [facility] BLOOD CULTURE SCREEN 2019-12-06 00:45:00 Benjy Gage [facility] EKG-12 LEAD 2019-12-06 00:39:05 Benjy Gage [facility] EKG-12 LEAD 2019-12-06 00:37:53 Benjy Gage [facility] NOTICE OF PRIVACY 2019-12-05 23:56:33 Doctor Unassigned, No [facility] PRACTICES Name Medical Branch CONSENT/REFUSAL FOR 2019-12-05 23:54:11 Doctor Unassigned, No [facility] DIAGNOSIS AND TREATMENT Name [facility] Encounters Start End Encounter Admission Attending Care Care Encounter Source Date/Time Date/Time Type Type Clinicians Facility Department ID 2021-02-28 Emergency [facility] [id number] Univers [facility]-25 Emergency [facility] [id number] Univers 11:19:47 [facility] 2022-09-26 2022-09-26 Outpatient [facility] [id number] [place] 14:01:53 14:01:53 [id number] F Anshu 2022-03-20 2022-03-21 Emergency X [facility] ERT [id number] Univers 23:39:00 01:57:[address] [facility] 2022-03-20 2022-03-21 [facility] [id number] Univers 23:39:00 01:57:00 Reggie LOPEZ [id number] i ty of [facility] 4.2.7.2.686 [facility] [id number] [address] 2021-01-07 2021-01-08 [facility] [id number] Univers 21:06:00 01:05:00 Don Christopher [place] [id number] ity of [place] 4.2.7.2.686 [facility] [id number] [address] 2020-03-04 2020-03-04 [facility] [id number] [facility] 09:15:00 09:15:00 VALENTE ity of [facility] 2020-02-12 2020-02-12 [facility] [id number] 09:48:20 23:59:00 Encounter Valente [facility] [id number] Surgical 4.2.7.2.686 Specialti [id number] es 809 [place] 2020-02-12 2020-02-12 [facility] [id number] Univers 09:48:20 23:59:00 Encounter [facility]ente [facility] [id number] ity of Surgical 4.2.7.2.686 [place] as Specialti [id number] Me dical es 809 [facility] 2020-02-12 2020-02-12 Office [facility] [id number] 09:17:13 09:57:42 Visit Valente [facility] [id number] Surgical 4.2.7.2.686 Specialti [id number] es 198 [place] 2020-02-12 2020-02-12 Office [facility] [id number] [facility] 09:17:13 09:57:42 Visit Valente [facility] [id number] it y of Surgical 4.2.7.2.686 [place] as Specialti [id number] Me dical es 198 [facility] 2020-02-12 2020-02-12 [facility] [id number] Univers 09:30:00 09:30:00 VALENTE morales [facility] 2019-12-24 2019-12-24 [facility] [id number] Univers 14:00:00 14:00:00 VALENTE morales [facility] 2019-12-15 2019-12-15 Office Nate [facility] [id number] Univers 15:17:14 15:58:57 Visit Valente Gracia [facility] [id number] it y of Surgical 4.2.7.2.686 [place] as Specialti [id number] W[place] dical es 198 [facility] 2019-12-15 2019-12-15 [facility] [id number] Univers 15:30:00 15:30:00 VALENTE morales [facility] 2019-12-05 2019-12-06 Emergency Nilson Gagein [facility] [id number] Univers 19:16:00 00:28:00 T [place] 350.1.13.10 i ty of [place] 4.2.7.2.686 [facility] [id number] [facility] 084 [place] 2019-12-05 2019-12-05 Nurse Nicci Engel [id number] Univers 00:00:00 00:00:00 Triage ARIE 350.1.13.10 it y of HOSPITAL 4.2.7.2.686 [place] as [id number] [facility] 019 [place] 2019-12-02 2019-12-02 Hospital [facility] [id number] Univers 15:00:00 23:59:00 Encounter Rolo Lopez 350.1.13.10 ity of [place] 4.2.7.2.686 [facility] [id number] [facility] 801 [place] 2019-12-02 2019-12-02 Office [facility] [id number] Univers 08:08:46 09:12:13 Visit Rolo Wilkins 350.1.13.10 it y of Surgical 4.2.7.2.686 [place] as Specialti [id number] W[place] dical es 198 [facility] 2019-12-02 2019-12-02 Outpatient R LOUISE [facility] [id number] Univers 08:15:00 08:15:00 ROLO morales [facility] Results Test Description Test Time Test Comments Results Result Comments Source HEMOGLOBIN A1c 2022-09-27 07:49:42 Test Item Value Reference Range Interpretation Comme nts HEMOGLOBIN A1c (test code = 5.8 % 4.2-5.6 H [employer] 35353) GUIDELINES FOR HGB A1C: PREDIABETES/INC REASED RISK . . . . . . . 5.7-6.4% DIAGNO SIS OF DIABETES . . . . . . . . . >=6.5% WITH CONFIRMATION OR APPROPRIATE SYM PTOMS NOTE: ASSAY MAY BE AFFECTED BY HEM OGLOBINOPATHIES (SICKLE CELL ANEMIA, S- C DISEASE, OTHERS) OR ARTIFICIALLY LO WERED BY DECREASED RED CELL SURVIVAL ( HEMOLYTIC ANEMIAS, BLOOD LOSS, ETC.). CO NSIDER ALTERNATE TESTING OR LABORATORY C ONSULTATION. UNLESS OTHERWISE INDIC ATED, ALL TESTING PERFORMED AT [facility], [place] [address] HOPE CASTRO DIRECTOR: Hua ENRIQUE SIMÓN NUMBER [id number] CAP ACCREDITATION N O. [id number] COMPREHENSIVE METABOLIC [id number] 04:12:38 Test Item Value Reference Range Interpretation Comments GLUCOSE (test code = 86 MG/DL 70-99 2216) BUN (test code = 13 MG/DL 6-20 2207) CREATININE (test 0.94 MG/DL 0.80-1.40 code = 2214) eGFR (2020 CKD-EPI) 116 >60 (test code = 44988) ML/MIN/1.73 CALC BUN/CREAT (test 14 RATIO 6-28 code = 2235) SODIUM (test code = 141 MEQ/L 194-911 8771) POTASSIUM (test code 4.1 MEQ/L 3.5-5.4 = 2228) CHLORIDE (test code 103 MEQ/L 95-107 = 2215) CARBON DIOXIDE (test 24 MEQ/L - code = 2206) CALCIUM (test code = 9.8 MG/DL 8.5-10.5 2208) PROTEIN, TOTAL (test 7.8 G/DL 6.1-8.3 code = 2229) ALBUMIN (test code = 4.7 G/DL 3.5-5.2 2200) CALC GLOBULIN (test 3.1 G/DL 1.9-3.7 code = 2240) CALC A/G RATIO (test 1.5 RATIO 1.0-2.6 code = 2234) BILIRUBIN, TOTAL 0.6 MG/DL See_Comment [Automated message] (test code = 2207) The syste m which generated this result transmit lisa reference range : <=1.2. The refe rence range was not u sed to interpret th is result as normal/abnormal . ALKALINE PHOSPHATASE 113 U/L 40-120 (test code = 2203) AST (test code = 24 U/L -50 2217) ALT (test code = 27 U/L 50 2218) LIPID [id number] 04:12:38 Test Item Value Reference Range Interpretation Comments CHOLESTEROL (test 258 MG/DL <200 H code = 2210) TRIGLYCERIDES (test 176 MG/DL <150 H code = 2232) HDL CHOLESTEROL (test 46 MG/DL >39 code = 2220) CALC LDL CHOL (test 179 MG/DL <100 H NOTE: C ALCULATED LDL code = 2237) IS BASED ON BHARATHI-TENORIO METHOD WHICHINCLUDES ADJUSTABLE TRIGLYCERIDE:VL DL CHOLESTEROL RAT IO.THIS FACTOR VARIES B Y MEASURED TRIGLY CERIDE AND NON-HDLCHOL ESTEROL CONCENTRATIONS WITH INCREASED CALCU LATED LDL SEENIN HIGH ER TRIGLYCERIDE OR LOWER NON-HDL SPECIME NS. FOR MOREINFORMATION , SEE CLIENT ANNOUNCE MENT AT [email or web address] [email or web address] RISK RATIO LDL/HDL 3.89 RATIO <3.55 H (test code = 2237) [id number] 04:12:21 Test Item Value Reference Range Interpretation Comments LIPASE (test code = 2057) 19 U/L 13-60 [id number] 04:12:21 Test Item Value Reference Range Interpretation Comments AMYLASE (test code = 2204) 52 U/L 28-100 CBC W/AUTO DIFF WITH [id number] 02:29:38 Test Item Value Reference Range Interpretation Comments WBC (test code = 7.4 K/UL 3.5-11.0 1001) RBC (test code = 5.02 M/UL 4.50-6.10 1002) HEMOGLOBIN (test code 15.7 G/DL 13.5-17.0 = 1003) HEMATOCRIT (test code 45.1 % 40.0-51.0 = 1004) MCV (test code = 89.8 fL 80.0-99.0 1005) MCH (test code = 31.3 PG 25.0-33.0 1006) MCHC (test code = 34.8 G/DL 31.0-36.0 1007) RDW (test code = 12.4 % 11.5-15.0 1038) NEUTROPHILS (test 55.7 % code = 1008) LYMPHOCYTES (test 34.6 % code = 1010) MONOCYTES (test code 8.2 % = 1011) EOSINOPHILS (test 0.8 % code = 1012) BASOPHILS (test code 0.4 % = 1013) IMMATURE GRANULOCYTES 0.3 % (test code = 1036) NUCLEATED RBCS (test 0.0 /100 WBC'S See_Comment [Aut omated code = 1065) message] The sy stem which generated this result transmitted reference range : 0.0. The refere nce range was not u sed to interpret th is result as normal/abnormal . PLATELET COUNT (test 292 K/UL 130-400 code = 1015) ABSOLUTE NEUTROPHILS 4.13 K/UL 1.50-7.50 (test code = 1066) ABSOLUTE LYMPHOCYTES 2.57 K/UL 1.00-4.00 (test code = 1067) ABSOLUTE MONOCYTES 0.61 K/UL 0.20-1.00 (test code = 1068) ABSOLUTE EOSINOPHILS 0.06 K/UL 0.00-0.50 (test code = 1040) ABSOLUTE BASOPHILS 0.03 K/UL 0.00-0.20 (test code = 1069) ABS IMMATURE 0.02 K/UL 0.00-0.10 GRANULOCYTES (test code = 1020) ABS NUCLEATED RBCS 0.00 K/UL 0.00-0.11 (test code = 22481) TROPONIN [id number] 05:10:59 Test Item Value Reference Interpretation Comments Range TROPONIN I (test 0.002 ng/mL See_Comment [Automated code = 9581374236) message] The system which generated this result [...] biotin. Lab Interpretation Normal (test code = 12528-5) [facility] [id number] 05:10:59 Test Item Value Reference Interpretation Comments Range TROPONIN I (test 0.002 ng/mL See_Comment [Automated code = 2425723462) message] The system which generated this result [...] biotin. Lab Interpretation Normal (test code = 36744-5) [id number] 05:01:11 Test Item Value Reference Interpretation Comments Range D-DIMER (test code = <0.27 See_Comment [Autom ated 2467738125) message] The system which generated this result [...] diagnosis. Lab Interpretation Normal (test code = 80337-9) [id number] 05:01:11 Test Item Value Reference Interpretation Comments Range D-DIMER (test code = <0.27 See_Comment [Autom ated 3732678003) message] The system which generated this result [...] diagnosis. Lab Interpretation Normal (test code = 87478-1) [facility]OLIC PANEL ([id number])2021-01-08 05:00:35 Test Item Value Reference Range Interpretation Comments NA (test code = 137 mmol/L 135-145 4930337788) K (test code = 4.7 mmol/L 3.5-5.0 3004797838) CL (test code = 102 mmol/L 98-108 1641972171) CO2 TOTAL (test code = 24 mmol/L 23-31 1784630639) AGAP (test code = 2-16 1400034139) BUN (test code = 20 mg/dL 7-23 9816315307) GLUCOSE (test code = 107 mg/dL 70-110 2550237715) CREATININE (test code = 0.86 mg/dL 0.60-1.25 8592865778) TOTAL BILI (test code = 0.7 mg/dL 0.1-1.2 5588113097) CALCIUM (test code = 9.9 mg/dL 8.6-10.6 5411407979) T PROTEIN (test code = 9.3 g/dL 6.3-8.2 H 3497896673) ALBUMIN (test code = 5.1 g/dL 3.5-5.0 H 7980364855) ALK PHOS (test code = 103 U/L 34-122 9080150356) ALTv (test code = 42 U/L 5-50 1742-6) AST(SGOT) (test code = 41 U/L 13-40 H 7639434909) eGFR (test code = mL/min/1.73m2 3289522679) SERGEY (test code = SERGEY) Association of [...] tests). Lab Interpretation Abnormal (test code = 82853-0) [facility]. METABOLIC PANEL ([id number])2021-01-08 05:00:35 Test Item Value Reference Range Interpretation Comments NA (test code = 137 mmol/L 135-145 5238853278) K (test code = 4.7 mmol/L 3.5-5.0 1429616902) CL (test code = 102 mmol/L 98-108 2679422367) CO2 TOTAL (test code = 24 mmol/L 23-31 3045824855) AGAP (test code = 2-16 6083778619) BUN (test code = 20 mg/dL 7-23 7868789403) GLUCOSE (test code = 107 mg/dL 70-110 9972658730) CREATININE (test code = 0.86 mg/dL 0.60-1.25 3500795590) TOTAL BILI (test code = 0.7 mg/dL 0.1-1.6 8024150905) CALCIUM (test code = 9.9 mg/dL 8.6-10.6 6432724835) T PROTEIN (test code = 9.3 g/dL 6.3-8.2 H 2661641708) ALBUMIN (test code = 5.1 g/dL 3.5-5.0 H 4160093401) ALK PHOS (test code = 103 U/L 34-122 4647070545) ALTv (test code = 42 U/L 5-50 1742-6) AST(SGOT) (test code = 41 U/L 13-40 H 7914827325) eGFR (test code = mL/min/1.73m2 3154382223) SERGEY (test code = SERGEY) Association of [...] tests). Lab Interpretation Abnormal (test code = 31187-5) [facility] [id number] 04:45:37 Test Item Value Reference Range Interpretation Comments WBC (test code = See_Comment [Automated 2193-2) message] The sy stem which generated this result transmitted reference range : 4.20 - 10.70 10*3/?L. The reference range was not used to interpret this result as normal/abnormal . RBC (test code = See_Comment [Automated 176-8) message] The sy stem which generated this [...] RDW-SD (test code = 41.2 fL 38.5-51.6 94451-7) RDW-CV (test code = 12.6 % 12.1-15.4 788-0) PLT (test code = See_Comment [Automated 777-3) message] The sy stem which generated this result transmitted reference range : 150 - 328 10*3/ ?L. The reference r juan manuel was not used to interpret this result as normal/abnormal . MPV (test code = 11.9 fL 9.8-13.0 90363-5) NRBC/100 WBC (test See_Comment [Automat ed code = 4781596833) message] The system which generated this result transmitted reference range : 0.0 - 10.0 /100 WBCs. The refer ence range was not u sed to interpret th is result as normal/abnormal . NRBC x10^3 (test code <0.01 See_Comment [Auto mated = 0490488393) message] The s ystem which generated this result transmitted reference range : 10*3/?L. The reference range was not used to interpret this result as normal/abnormal . GRAN MAT (NEUT) % 73.5 % (test code = 770-8) IMM GRAN % (test code 0.40 % = 4671163167) LYMPH % (test code = 18.5 % 736-9) MONO % (test code = 6.8 % 5905-5) EOS % (test code = 0.2 % 713-8) BASO % (test code = 0.6 % 706-2) GRAN MAT x10^3(ANC) 7.50 10*3/uL 1.99-6.95 H (test code = 6800035001) IMM GRAN x10^3 (test 0.04 10*3/uL 0.00-0.06 code = 9528166405) LYMPH x10^3 (test code 1.89 10*3/uL 1.09-3.23 = 731-0) MONO x10^3 (test code 0.69 10*3/uL 0.36-1.02 = 742-7) EOS x10^3 (test code = <0.03 0.06-0.53 L 711-2) BASO x10^3 (test code 0.06 10*3/uL 0.01-0.09 = 704-7) Lab Interpretation Abnormal (test code = 59255-1) [facility] [id number] 04:45:37 Test Item Value Reference Range Interpretation Comments WBC (test code = See_Comment [Automated 6690-2) message] The sy stem which generated this [...] RDW-SD (test code = 41.2 fL 38.5-51.6 92444-0) RDW-CV (test code = 12.6 % 12.1-15.4 788-0) PLT (test code = See_Comment [Automated 777-3) message] The sy stem which generated this result transmitted reference range : 150 - 328 10*3/ ?L. The reference r juan manuel was not used to interpret this result as normal/abnormal . MPV (test code = 11.9 fL 9.8-13.0 27018-9) NRBC/100 WBC (test See_Comment [Automat ed code = 8751135719) message] The system which generated this result transmitted reference range : 0.0 - 10.0 /100 WBCs. The refer ence range was not u sed to interpret th is result as normal/abnormal . NRBC x10^3 (test code <0.01 See_Comment [Auto mated = 4377298236) message] The s ystem which generated this result transmitted reference range : 10*3/?L. The reference range was not used to interpret this result as normal/abnormal . GRAN MAT (NEUT) % 73.5 % (test code = 770-8) IMM GRAN % (test code 0.40 % = 3224609448) LYMPH % (test code = 18.5 % 736-9) MONO % (test code = 6.8 % 5905-5) EOS % (test code = 0.2 % 713-8) BASO % (test code = 0.6 % 706-2) GRAN MAT x10^3(ANC) 7.50 10*3/uL 1.99-6.95 H (test code = 2774280219) IMM GRAN x10^3 (test 0.04 10*3/uL 0.00-0.06 code = 7825302624) LYMPH x10^3 (test code 1.89 10*3/uL 1.09-3.23 = 731-0) MONO x10^3 (test code 0.69 10*3/uL 0.36-1.02 = 742-7) EOS x10^3 (test code = <0.03 0.06-0.53 L 711-2) BASO x10^3 (test code 0.06 10*3/uL 0.01-0.09 = 704-7) Lab Interpretation Abnormal (test code = 37994-5) [facility] <3 VW [id number] 16:02:17 Fracture remains in stable positionUnDell Children's Medical CenterLactic Acid Whole [id number] 03:25:00 Test Item Value Reference Range Interpretation Comments LACTIC ACID (test code = 1.30 mmol/L 1498776738) [facility] CenterUrinalysis2020-08-08 01:33:00 Test Item Value Reference Range Interpretation Comments APPEARANCE (test code = Clear Clear 4067298169) COLOR (test code = Yellow Yellow 4432301116) PH (test code = 4.8-8.0 5283285873) SP GRAVITY (test code = 1.003-1.030 4334925110) GLU U QUAL (test code = Normal Normal 4995905749) BLOOD (test code = Negative Negative 5173526737) KETONES (test code = Negative Negative 9355692842) PROTEIN (test code = 30 mg/dL Negative A 2887-8) UROBILIN (test code = Normal Normal 3868400687) BILIRUBIN (test code = Negative Negative 5433162908) NITRITE (test code = Negative Negative 8567637372) LEUK STACY (test code = Negative Negative 5118213689) RBC/HPF (test code = See_Comment [Autom ated message] 9624165346) The system [employer] generated this result transmitted ref erence range: 0 - 3 HP F. The reference range was not used to int erpret this result as normal/abnormal . WBC/HPF (test code = <1 See_Comment [Autom ated message] 2569291411) The system [employer] generated this result transmitted ref erence range: 0 - 5 HP F. The reference range was not used to int erpret this result as normal/abnormal . BACTERIA (test code = Negative Negative 7098159820) MUCOUS (test code = Moderate Negative LPF A 9562202651) Lab Interpretation (test Abnormal code = 81364-1) [facility] (NA, K, CL, CO2, GLUCOSE, BUN, CREATININE, CA)2019-12-06 01:25:00 Test Item Value Reference Range Interpretation Comments NA (test code = 138 mmol/L 135-145 6847155282) K (test code = 3.9 mmol/L 3.5-5 9145401404) CL (test code = 101 mmol/L 98-108 6006251714) CO2 TOTAL (test code = 25 mmol/L 23-31 0090786392) AGAP (test code = 2-16 7575612557) BUN (test code = 12 mg/dL 7-23 6499036874) GLUCOSE (test code = 119 mg/dL 70-110 H 0536292379) CREATININE (test code = 0.77 mg/dL 0.6-1.25 3953667778) CALCIUM (test code = 10.4 mg/dL 8.6-10.6 5423405182) eGFR Calculation mL/min/1.73m2 (Non-) (test code = 4879399118) eGFR Calculation mL/min/1.73m2 () (test code = 2110434532) SERGEY (test code = SERGEY) Association of [...] tests). Lab Interpretation Abnormal (test code = 49119-8) [facility] CenterHepatic Function Panel (ALB, T.PRO, BILI T, BU/BC, ALT, AST, ALK PHOS)2019-12-06 01:25:00 Test Item Value Reference Range Interpretation Comments TOTAL BILI (test code = 3850793522) 1.0 mg/dL 0.1-1.1 BILI UNCON (test code = 0711826984) 0.9 mg/dL 0.1-1.1 BILI CONJ (test code = 4235539784) 0.0 mg/dL 0-0.3 T PROTEIN (test code = 0893495950) 9.1 g/dL 6.3-8.2 H ALBUMIN (test code = 6636067494) 5.1 g/dL 3.5-5 H ALK PHOS (test code = 4225985589) 101 U/L 34-122 ALTv (test code = 1742-6) 46 U/L 5-50 AST(SGOT) (test code = 4253255884) 34 U/L 13-40 Lab Interpretation (test code = Abnormal 58961-3) [facility] [id number] 01:21:00 Test Item Value Reference Range Interpretation Comments WBC (test code = See_Comment [Automated 0990-2) message] The sy stem which generated this [...] RDW-SD (test code = 40.2 fL 38.5-51.6 54681-4) RDW-CV (test code = 12.5 % 12.1-15.4 788-0) PLT (test code = See_Comment H [Automated 777-3) message] The sy stem which generated this result transmitted reference range : 150 - 328 10*3/ ?L. The reference r juan manuel was not used to interpret this result as normal/abnormal . MPV (test code = 11.2 fL 9.8-13 17834-6) NRBC/100 WBC (test See_Comment [Automat ed code = 6225139644) message] The system which generated this result transmitted reference range : 0.0 - 10.0 /100 WBCs. The refer ence range was not u sed to interpret th is result as normal/abnormal . NRBC x10^3 (test code <0.01 See_Comment [Auto mated = 6663917581) message] The s ystem which generated this result transmitted reference range : 10*3/?L. The reference range was not used to interpret this result as normal/abnormal . GRAN MAT (NEUT) % 74.8 % (test code = 770-8) IMM GRAN % (test code 0.20 % = 2221204671) LYMPH % (test code = 18.9 % 736-9) MONO % (test code = 5.4 % 5905-5) EOS % (test code = 0.4 % 713-8) BASO % (test code = 0.3 % 706-2) GRAN MAT x10^3(ANC) 6.97 10*3/uL 1.99-6.95 H (test code = 1650830593) IMM GRAN x10^3 (test <0.03 0-0.06 code = 2036330191) LYMPH x10^3 (test code 1.76 10*3/uL 1.09-3.23 = 731-0) MONO x10^3 (test code 0.50 10*3/uL 0.36-1.02 = 742-7) EOS x10^3 (test code = 0.04 10*3/uL 0.06-0.53 L 711-2) BASO x10^3 (test code 0.03 10*3/uL 0.01-0.09 = 704-7) Lab Interpretation Abnormal (test code = 38274-0) [facility] CenterLactic Acid Whole [id number] 01:02:00 Test Item Value Reference Range Interpretation Comments LACTIC ACID (test code = 2.92 mmol/L 5042887100) [facility]
--- NOTE | 2022-12-02 04:54 | ER ---
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 Patient pf1 stated the attack woke him up and he felt like he was in shock. Patient crying in triage. Coronavirus screen: Vaccine status: Patient reports being unvaccinated. Client denies travel out of the [place] in the last 14 days. At this time, the client does not indicate any symptoms associated with coronavirus-19. Ebola Screen: Patient negative for fever greater than or equal to 101.5 degrees Fahrenheit, and additional compatible Ebola Virus Disease symptoms. Initial Sepsis Screen: Does the patient meet any 2 criteria? No. Patient's initial sepsis screen is negative. Does the patient have a suspected source of infection? No. Patient's initial sepsis screen is negative. Risk Assessment: Do you want to hurt yourself or someone else? Patient reports no desire to harm self or others. 03:59 Method Of Arrival: Wheelchair pf1 03:59 Acuity: MARI 3 pf1 04:04 Onset of symptoms was December 02, 2022. ha1 Triage Assessment: 04:04 General: Appears uncomfortable, Behavior is anxious, crying. Pain: Denies pain. Neuro: ha1 Level of Consciousness is awake, alert, obeys commands, Oriented to person, place, time, situation. Cardiovascular: Heart tones S1 S2 present Patient's skin is warm and dry. Rhythm is sinus rhythm. 04:04 Neuro: Reports anxiety. Respiratory: Airway is patent Respiratory effort is even, ha1 unlabored, Respiratory pattern is regular, symmetrical. GI: No signs and/or symptoms were reported involving the gastrointestinal system. : No signs and/or symptoms were reported regarding the genitourinary system. Derm: Skin is moist, Skin is normal. Musculoskeletal: Circulation, motion, and sensation intact. Range of motion: intact in all extremities. Historical: - Allergies: 04:02 No Known Allergies; pf1 - PMHx: 04:02 broken foot/infection; pre-diabetic; anixety attacks; pf1 - Immunization history:: Adult Immunizations up to date, Client reports having NOT received the Covid vaccine. Last tetanus immunization: < 10 years ago Flu vaccine is not up to date. - Social history:: Smoking status: Patient denies any tobacco usage or history of. Patient/guardian denies using alcohol, street drugs. Screenin:04 [facility] ED Fall Risk Assessment (Adult) History of falling in the last 3 months, ha1 including since admission No falls in past 3 months (0 pts) Confusion or Disorientation No (0 pts) Intoxicated or Sedated No (0 pts) Impaired Gait No (0 pts) Mobility Assist Device Used No (0 pt) Altered Elimination No (0 pt) Score/Fall Risk Level 0 - 2 = Low Risk Oriented to surroundings, Maintained a safe environment, Educated pt \T\ family on fall prevention, incl call for assistance when getting out of bed, Hourly rounding (assess needs \T\ fall precautionary measures) done. Abuse screen: Denies threats or abuse. Denies injuries from another. Nutritional screening: No deficits noted. Tuberculosis screening: No symptoms or risk factors identified. Assessment: 04:04 Reassessment: see triage assessment. ha1 Vital Signs: 03:59 BP 146 / 94; Pulse 92; Resp 18; Temp 98.1; Pulse Ox 100% on R/A; Weight 124.74 kg; pf1 Height 5 ft. 9 in. ; 05:05 BP 133 / 85; Pulse 76; Resp 16 S; Pulse Ox 100% on R/A; ha1 03:59 Body Mass Index 40.61 (124.74 kg, 175.26 cm) pf1 ED Course: 03:52 Patient arrived in ED. am2 04:01 Triage completed. pf1 04:04 Arm band placed on right wrist. ha1 04:04 Patient has correct armband on for positive identification. Placed in gown. Bed in low ha1 position. Call light in reach. Side rails up X 1. 04:10 Vickey Paul MD is Attending Physician. [facility] 04:53 Lissa Arellano RN is Primary Nurse. 1 04:53 Deven Narayan MD is Referral Physician. [facility] 05:35 Provided Education on: follow ups and medication administration. ha1 05:35 No provider procedures requiring assistance completed. ha1 05:35 Patient did not have IV access during this emergency room visit. ha1 Administered Medications: 04:55 Drug: LORazepam IM 2 mg Route: IM; Site: left deltoid; ha1 05:30 Follow up: Response: No adverse reaction; Anxiety decreased; RASS: Alert and Calm (0) ha1 Medication: 05:32 VIS not applicable for this client. ha1 Outcome: 04:53 Discharge ordered by MD. russ 05:35 Discharged to home ambulatory. ha1 05:35 Condition: stable 05:35 Discharge instructions given to patient, Instructed on discharge instructions, follow up and referral plans. medication usage, Demonstrated understanding of instructions, follow-up care, medications, Prescriptions given X 1. 05:39 Patient left the ED. ha1 Signatures: Vickey Paul MD MD cha Moreno, Amanda am2 Ayala, Heidy, RN RN ha1 Leeann Han RN RN pf1
--- NOTE | 2022-12-02 04:54 | EDPHYS ---
Physician Documentation [facility] Name: Keny Kyle Age: 22 yrs Sex: Male : 2000 Arrival Date: 12/02/2022 Time: 03:51 Bed 15 Private MD: BRAN Physician Vickey Paul HPI: 12/02 04:49 This 22 yrs old Male presents to ER via Wheelchair with complaints of Anxiety. petrona 04:49 The patient presents to the emergency department with anxiety. Onset: The petrona symptoms/episode began/occurred this morning, today. Past psychiatric history: Prior diagnosis: annxiety. Associated signs and symptoms: The patient has no apparent associated signs or symptoms. Severity of symptoms: At their worst the symptoms were moderate in the emergency department the symptoms are unchanged. The patient has not experienced similar symptoms in the past. Historical: - Allergies: 04:02 No Known Allergies; pf1 - PMHx: 04:02 broken foot/infection; pre-diabetic; anixety attacks; pf1 - Immunization history:: Adult Immunizations up to date, Client reports having NOT received the Covid vaccine. Last tetanus immunization: < 10 years ago Flu vaccine is not up to date. - Social history:: Smoking status: Patient denies any tobacco usage or history of. Patient/guardian denies using alcohol, street drugs. ROS: 04:50 Constitutional: Negative for fever, chills, and weight loss, Eyes: Negative for injury, petrona pain, redness, and discharge, ENT: Negative for injury, pain, and discharge, Neck: Negative for injury, pain, and swelling, Cardiovascular: Negative for chest pain, palpitations, and edema, Respiratory: Negative for shortness of breath, cough, wheezing, and pleuritic chest pain, Abdomen/GI: Negative for abdominal pain, nausea, vomiting, diarrhea, and constipation, Back: Negative for injury and pain, : Negative for injury, bleeding, discharge, and swelling, MS/Extremity: Negative for injury and deformity, Skin: Negative for injury, rash, and discoloration, Neuro: Negative for headache, weakness, numbness, tingling, and seizure, Allergy/Immunology: Negative for hives, rash, and allergies, Endocrine: Negative for neck swelling, polydipsia, polyuria, polyphagia, and marked weight changes, Hematologic/Lymphatic: Negative for swollen nodes, abnormal bleeding, and unusual bruising. 04:50 Psych: Positive for anxiety. Exam: 04:50 Constitutional: This is a well developed, well nourished patient who is awake, alert, petrona and in no acute distress. Head/Face: Normocephalic, atraumatic. Eyes: Pupils equal round and reactive to light, extra-ocular motions intact. Lids and lashes normal. Conjunctiva and sclera are non-icteric and not injected. Cornea within normal limits. Periorbital areas with no swelling, redness, or edema. ENT: Nares patent. No nasal discharge, no septal abnormalities noted. Tympanic membranes are normal and external auditory canals are clear. Oropharynx with no redness, swelling, or masses, exudates, or evidence of obstruction, uvula midline. Mucous membranes moist. Neck: Trachea midline, no thyromegaly or masses palpated, and no cervical lymphadenopathy. Supple, full range of motion without nuchal rigidity, or vertebral point tenderness. No Meningismus. Chest/axilla: Normal chest wall appearance and motion. Nontender with no deformity. No lesions are appreciated. Cardiovascular: Regular rate and rhythm with a normal S1 and S2. No gallops, murmurs, or rubs. Normal PMI, no JVD. No pulse deficits. Respiratory: Lungs have equal breath sounds bilaterally, clear to auscultation and percussion. No rales, rhonchi or wheezes noted. No increased work of breathing, no retractions or nasal flaring. Abdomen/GI: Soft, non-tender, with normal bowel sounds. No distension or tympany. No guarding or rebound. No evidence of tenderness throughout. Back: No spinal tenderness. No costovertebral tenderness. Full range of motion. Male : Normal genitalia with no discharge or lesions. Skin: Warm, dry with normal turgor. Normal color with no rashes, no lesions, and no evidence of cellulitis. MS/ Extremity: Pulses equal, no cyanosis. Neurovascular intact. Full, normal range of motion. Neuro: Awake and alert, GCS 15, oriented to person, place, time, and situation. Cranial nerves II-XII grossly intact. Motor strength 5/5 in all extremities. Sensory grossly intact. Cerebellar exam normal. Normal gait. 04:50 Psych: Behavior/mood is anxious, Affect is calm, Oriented to person, place, time, Patient has no thoughts/intents to harm self or others. Judgement / Insight is normal. Memory is normal. Delusions/hallucinations are not present. 05:04 ECG was reviewed by the Attending Physician. [facility] Vital Signs: 03:59 BP 146 / 94; Pulse 92; Resp 18; Temp 98.1; Pulse Ox 100% on R/A; Weight 124.74 kg; pf1 Height 5 ft. 9 in. ; 05:05 BP 133 / 85; Pulse 76; Resp 16 S; Pulse Ox 100% on R/A; ha1 03:59 Body Mass Index 40.61 (124.74 kg, 175.26 cm) pf1 MDM: 04:10 Patient medically screened. petrona 04:50 Differential diagnosis: drug withdrawal. acute psychotic break, depression, psychosis petrona secondary to non-compliance. Data reviewed: vital signs, nurses notes, EKG. Consideration of Admission/Observation Escalation of care including admission/observation considered. I considered the following discharge prescriptions or medication management in the emergency department Medications were administered in the Emergency Department. See MAR. Test considered but Not performed: Labs: no labs. Historians other than the Patient: pt only, goof historian. Care significantly affected by the following chronic conditions: Obesity. Counseling: I had a detailed discussion with the patient and/or guardian regarding: the historical points, exam findings, and any diagnostic results supporting the discharge/admit diagnosis, radiology results, the need for outpatient follow up, for definitive care, a family practitioner, a psychiatrist. 12/02 04:49 Order name: EKG; Complete Time: 04:49 [facility] 12/02 04:49 Order name: EKG - Nurse/Tech; Complete Time: 05:01 [facility] EC:04 Rate is 82 beats/min. Rhythm is regular. QRS [place] is Normal. [place] interval is normal. QRS [place]ron[place] interval is normal. QT interval is normal. No Q waves. T waves are Normal. T waves are Inverted in lead V3. No ST changes noted. Clinical impression: NSR w/ Non-specific ST/T Changes and No evidence of ischemia. Interpreted by me. Reviewed by me. Administered Medications: 04:55 Drug: LORazepam IM 2 mg Route: IM; Site: left deltoid; ha1 05:30 Follow up: Response: No adverse reaction; Anxiety decreased; RASS: Alert and Calm (0) ha1 Disposition Summary: 12/02/22 04:53 Discharge Ordered Location: Home petrona Problem: new petrona Symptoms: have improved petrona Condition: Stable petrona Diagnosis - Adjustment disorder with anxiety petrona - Anxiety disorder, unspecified petrona Followup: petrona - With: Private Physician - When: 2 - 3 days - Reason: Recheck today's complaints, Continuance of care, Re-evaluation by your physician Followup: petrona - With: Deven Narayan MD - When: 2 - 3 days - Reason: Recheck today's complaints, Continuance of care, Re-evaluation by your physician Discharge Instructions: - Discharge Summary Sheet petrona - Panic Attack petrona - Panic Attack, [id number] petrona - Supporting Someone With Anxiety petrona Forms: - Medication Reconciliation Form petrona - Thank You Letter petrona - Antibiotic Education petrona - Prescription Opioid Use petrona - Patient Portal Instructions petrona Prescriptions: - Hydroxyzine HCl 25 mg Oral Tablet - take 2 tablet by ORAL route every 6 hours As needed; 30 tablet; Refills: 0, petrona Product Selection Permitted Signatures: Vickey Paul MD MD cha Ayala, Heidy, RN RN ha1 Leeann Han RN RN pf1
[2022-12-02] MEDS ORDERED: LORazepam 2 MG/ML VIAL ONE (05:05)
--- NOTE | 2022-12-04 13:07 | EKG ---
Test Date: 2022-12-02 Test Time: 05:00:39 Video Game Script Writer: PITO MEASUREMENT RESULTS: Intervals: Rate: 82 MD: 146 QRSD: 96 QT: 346 QTc: 404 [place]: P: 45 MD: 146 QRS: 93 T: 5 INTERPRETIVE STATEMENTS: Normal sinus rhythm Rightward axis Nonspecific ST and T wave abnormality Abnormal ECG Compared to ECG 10/24/2021 02:56:00 Right-axis deviation now present ST (T wave) deviation now present Sinus bradycardia no longer present Sinus arrhythmia no longer present T-wave abnormality no longer present Electronically Signed On 12-04-22 13:05:05 CDT by Dano Bui
== END 2022-12-02 05:39 | disposition home or self-care (01) ==
LOC: ER 03:51
DX: F43.22 Adjustment disorder with anxiety (principal)
CPT/HCPCS: 93005; 96372; 99284

== ENCOUNTER 2022-12-03 19:58 | Emergency (ER) | payer SELFPAY ==
--- OUTSIDE RECORDS SUMMARY | 2022-12-03 20:02 | XMS REPORT | Continuity of Care Document ---
:2000 Author Organization [facility] t Address [address]. [address] [place] [address] Care Team Providers Name Role Phone Pcp, [...] Effective Date Expiration Date Christophe TEE II [id number] 2019 00:00:00 Problems Condition Condition Condition Status Onset Resolution Last Treating Co mments Source Name Details Category Date Date Treatment Clinician Date No known No known Disease Unive rs active active ity of problems problems [facility] Allergies, Adverse Reactions, Alerts Allergy Allergy Status Severity Reaction(s) Onset Inactive Treating Comm ents Source Name Type Date Date Clinician NO KNOWN Drug Active Univers ALLERGIE Class ity of S [facility] Social History Social Habit Start Date Stop Date Quantity Comments Source Exposure to 2022-03-10 2022-03-20 Not sure University SARS-CoV-2 00:00:00 23:32:00 [facility] (event) [place] Tobacco use and 2019-12-15 2019-12-15 Smokeless tobacco Un iversity of exposure 00:00:00 00:00:00 non-user [facility] Tobacco Comment 2019-12-02 2019-12-02 weed Universit y of 00:00:00 00:00:00 [facility] Sex Assigned At [birth year] Universit y of 00:00:00 00:00:00 [facility] Smoking Status Start Date Stop Date Source Tobacco smoking consumption Univ ersity [facility] Medications Ordered Filled Start Stop Current Ordering Indication Dosage Frequency Signature Comments Components Source Medication Medication Date Date Medication? Clinician (SIG) Name Name diphenhydrA 2021-04 No 25mg 25 mg, Uni vers MINE 05-21 Oral, ity of (BENADRYL) 06:30: 06:30 ONCE, 1 [place] as tablet 25 00 :00 dose, On Medica l mg [facility] 03/21/22 at 0030, CAIT hydrOXYzine 2021-04 Yes [id number] 25mg Take 1 Univers (VISTARIL) 05-21 capsule by ity of 25 mg 00:00: mouth at [place] capsule 00 bedtime as Medica l needed for [place] Anxiety (to help sleep). SERTraline 2021-04 No [id number] 25mg Take 1 Univers (ZOLOFT) 25 05-21 12 tablet by it y of mg tablet 00:00: 05:59 mouth [place] 00 :00 daily for Medical 30 days. [place] LORazepam No 1mg 1 mg, Slow U nivers (ATIVAN) 01-08 IV Push, ity of injection 1 04:30: 04:23 ONCE, 1 [place] mg 00 :[place] dose, Fri [facility] 01/07/21 at Branch 2330, STAT NaCl 0.9% [...] 1,000 mL 00 :00 IV Medical Piggyback, [place] ONCE, 1 dose, Sun01/07/21 at 2330, STAT hydrOXYzine 2020-0 Yes [id number] 50mg Take 1 Univers 50 mg 9-11 tablet by ity of tablet 00:00: mouth 3 [place] 00 (three) Medical times Branch daily as needed for Anxiety. hydrOXYzine 1-0 Yes [id number] 50mg Take 1 Univers 50 mg 9-11 tablet by ity of tablet 00:00: mouth 3 [place] 00 (three) Medical times Branch daily as needed for Anxiety. hydrOXYzine 2021-0 Yes [id number] 50mg Take 1 Univers 50 mg 9-11 [...] (30 mL/kg Medica l ?70.7 kg Branch [place] weight), IV Infusion, ONCE, 1 dose, 12/05/19 at 2000, CAIT cephALEXin 2019-0 2020- No [id number] 500mg Take 1 Univers (KEFLEX) 12-05 [id number] capsule by it y of 500 mg [...] 06:34:00 161 mm[Hg] Univer sity of pressure [facility] Diastolic blood 2022-03-21 06:34:00 83 mm[Hg] [facility] Heart rate 2022-03-21 06:34:00 85 /min [facility] Respiratory rate 2022-03-21 06:34:00 20 /min [facility] Oxygen saturation in 2022-03-21 06:34:00 98 /min [facility] Arterial blood by [facility] Pulse oximetry Branch Body temperature 2022-03-21 05:36:00 36.72 Fatimah [facility] Body height 2022-03-21 05:36:00 175.3 cm [facility] Body weight 2022-03-21 05:36:00 127.007 kg [facility] [place] [facility] BMI 2022-03-21 05:36:00 41.35 kg/m2 [facility] [place] [facility] Systolic blood 2021-01-08 05:39:54 150 mm[Hg] Univer sity of pressure [facility] Diastolic blood 2021-01-08 05:39:54 76 mm[Hg] Unive rsity of pressure [facility] Heart rate 2021-01-08 05:39:54 80 /min [facility] [place] [facility] Respiratory rate 2021-01-08 05:39:54 20 /min Univ ersity of [facility] Oxygen saturation in 2021-01-08 05:39:54 99 /min University Arterial blood by [facility] Pulse oximetry Branch Body temperature 2021-01-08 01:55:00 37.39 Fatimah Univ ersity of [facility] Body height 2021-01-08 01:55:00 175.3 cm [facility] [place] [facility] [place] Body weight 2021-01-08 01:55:00 127.007 kg [facility] [place] [facility] BMI 2021-01-08 01:55:00 41.35 kg/m2 Universi ty of [facility] Systolic blood 2020-02-12 14:27:00 129 mm[Hg] Univer sity of [facility] [place] [facility] Diastolic blood 2020-02-12 14:27:00 84 mm[Hg] Unive rsity of pressure [facility] Heart rate 2020-02-12 14:24:00 88 /min [facility] [place] [facility] Body height 2020-02-12 14:24:00 175.3 cm [facility] [place] [facility] Body weight 2020-02-12 14:24:00 122.471 kg [facility] [place] [facility] BMI 2020-02-12 14:24:00 39.87 kg/m2 Universi ty of [facility] Systolic blood 2020-02-12 14:27:00 129 mm[Hg] Univer sity of pressure [facility] Branch Diastolic blood 2020-02-12 14:27:00 84 mm[Hg] Unive rsity of pressure [facility] Heart rate 2020-02-12 14:24:00 88 /min [facility] [place] [facility] Body height 2020-02-12 14:24:00 175.3 cm [facility] [place] [facility] Body weight 2020-02-12 14:24:00 122.471 kg [facility] [place] [facility] BMI 2020-02-12 14:24:00 39.87 kg/m2 Universi ty of [facility] Branch Systolic blood 2019-12-15 20:29:00 125 mm[Hg] Univer sity of pressure [facility] Branch Diastolic blood 2019-12-15 20:29:00 84 mm[Hg] Unive rsity of [facility] [place] [facility] Heart rate 2019-12-15 20:29:00 80 /min [facility] [place] [facility] Body height 2019-12-15 20:27:00 177.8 cm [facility] [place] [facility] Body weight 2019-12-15 20:27:00 122.471 kg stated Universi ty of [facility] Branch BMI 2019-12-15 20:27:00 38.74 kg/m2 Universi ty of [facility] Branch Systolic blood 2019-12-06 05:00:00 134 mm[Hg] Univer sity of pressure [facility] Branch Diastolic blood 2019-12-06 05:00:00 90 mm[Hg] Unive rsity of pressure [facility] Branch Heart rate 2019-12-06 05:00:00 71 /min Universi ty of [facility] Branch Respiratory rate 2019-12-06 05:00:00 18 /min Univ ersity of [facility] Oxygen saturation in 2019-12-06 05:00:00 99 /min University of Arterial blood by [facility] Pulse oximetry Branch Body temperature 2019-12-06 00:10:33 37.28 Fatimah Univ ersity of [facility] Branch Body height 2019-12-06 00:06:00 175.3 cm [facility] [place] [facility] Body weight 2019-12-06 00:06:00 122.471 kg [facility] [place] [facility] BMI 2019-12-06 00:06:00 39.87 kg/m2 Universi ty of [facility] Branch Systolic blood 2019-12-02 13:25:00 134 mm[Hg] Univer sity of pressure [facility] Branch Diastolic blood 2019-12-02 13:25:00 91 mm[Hg] Unive rsity of pressure [facility] Branch Heart rate 2019-12-02 13:25:00 96 /min [facility] Body height 2019-12-02 13:20:00 175.3 cm [facility] Body weight 2019-12-02 13:20:00 122.471 kg [facility] BMI 2019-12-02 13:20:00 39.87 kg/m2 [facility] Procedures Procedure Date / Time Performing Clinician Source Performed URINE DRUG (IMMUNOASSAY) 2022-03-21 06:19:00 [facility]gie [facility] OF PRIVACY 2022-03-21 05:33:33 Doctor Unassigned, No [facility]REFUS[facility] FOR 2022-03-21 05:30:24 Doctor Unassigned, No Un iversity [facility] DIAGNOSIS AND TREATMENT [facility] TROPONIN I 2021-01-08 04:16:00 Don De [facility] COMP. METABOLIC PANEL 2021-01-08 04:16:00 Don [facility] [place] [id number] CBC WITH DIFF 2021-01-08 04:16:00 Don De [facility] D-DIMER 2021-01-08 04:16:00 Don De [facility] XR CHEST 1 VW 2021-01-08 03:06:01 Lon Gutierrez [facility] CONSENT/REFUSAL FOR 2021-01-08 01:42:28 Doctor Unassigned, No Un iversity of [place] DIAGNOSIS AND TREATMENT [facility] NOTICE OF PRIVACY 2021-01-08 01:41:57 Doctor Unassigned, No [facility] XR FOOT <3 VW LEFT 2020-02-12 14:48:21 Valente Sullivan [facility] LACTIC ACID WHOLE BLOOD 2019-12-06 03:20:00 Benjy Gage [facility] 2019-12-06 01:00:00 Benjy Gage [facility] BLOOD CULTURE SCREEN 2019-12-06 00:53:00 Benjy Gage [facility] HEPATIC FUNCTION PANEL 2019-12-06 00:53:00 Benjy Gage [facility] ([id number]) (ALB,T.PRO,BILI Medical Branch T,BU/BC,ALT,AST,ALK PHOS) BASIC METABOLIC PANEL 2019-12-06 00:53:00 Benjy Gage [facility] (NA, K, CL, CO2, Medical Branch GLUCOSE, BUN, CREATININE, CA) CBC WITH DIFF 2019-12-06 00:53:00 Benjy [facility]age [facility] LACTIC ACID WHOLE BLOOD 2019-12-06 00:53:00 Benjy Gage [facility] BLOOD CULTURE SCREEN 2019-12-06 00:45:00 Benjy Gage [facility] EKG-12 LEAD 2019-12-06 00:39:05 Benjy [facility]age [facility] EKG-12 LEAD 2019-12-06 00:37:53 Benjy Gage [facility] NOTICE OF PRIVACY 2019-12-05 23:56:33 Doctor Unassigned, No [facility] PRACTICES Name Medical Branch CONSENT/REFUSAL FOR 2019-12-05 23:54:11 Doctor Unassigned, No [facility] DIAGNOSIS AND TREATMENT Name [facility] Encounters Start End Encounter Admission Attending Care Care Encounter Source Date/Time Date/Time Type Type Clinicians Facility Department ID 2021-02-28 Emergency [facility] [id number] Univers [facility] 2021-02-25 Emergency [facility] [id number] Univers 11:19:47 [facility] 2022-09-26 2022-09-26 Outpatient [facility] [id number] [place] 14:01:53 14:01:53 [id number] F Anshu 2022-03-20 2022-03-21 Emergency X [facility] ERT [id number] Univers 23:39:00 01:57:00 REGGIE [facility] 2022-03-20 2022-03-21 [facility] [id number] Univers 23:39:00 01:57:00 Reggie LOPEZ [id number] i ty [facility].2.7.2.[address] [facility] [id number] 2021-01-07 2021-01-08 [facility] [id number] Univers 21:06:00 01:05:00 Don Christopher [place] [id number] ity of [place] 4.2.7.2.686 [facility] [id number] [address] 2020-03-04 2020-03-04 [facility] [id number] [facility] 09:15:00 09:15:00 VALENTE ity of [facility] 2020-02-12 2020-02-12 [facility] [id number] 09:48:20 23:59:00 Encounter Valente [facility] [id number] Surgical 4.2.7.2.686 Specialti [id number] es 809 [place] 2020-02-12 2020-02-12 [facility] [id number] Univers 09:48:20 23:59:00 Encounter Valente [facility] [id number] ity of Surgical 4.2.7.2.686 [place] Specialti [id number] Me dical es 809 [facility] 2020-02-12 2020-02-12 Office [facility] [id number] 09:17:13 09:57:42 Visit Valente [facility] [id number] Surgical 4.2.7.2.686 Specialti [id number] es 198 [place] 2020-02-12 2020-02-12 Office [facility] [id number] [facility] 09:17:13 09:57:42 Visit Valente [facility] [id number] it y of Surgical 4.2.7.2.686 [place] as Specialti [id number] Me dical es 198 [facility] 2020-02-12 2020-02-12 [facility] [id number] Univers 09:30:00 09:30:00 VALENTE morales [facility] 2019-12-24 2019-12-24 [facility] [id number] Univers 14:00:00 14:00:00 VALENTE morales [facility] 2019-12-15 2019-12-15 Office Nate RUST [id number] Univers 15:17:14 15:58:57 Visit Valente Gracia [facility] [id number] it y of Surgical 4.2.7.2.686 [place] as Specialti [id number] Ca dical es 198 [facility] 2019-12-15 2019-12-15 [facility] [id number] Univers 15:30:00 15:30:00 VALENTE morales [facility] 2019-12-05 2019-12-06 Emergency Nilson Gagein RUST [id number] Univers 19:16:00 00:28:00 T [place] 350.1.13.10 i ty of [place] 4.2.7.2.686 [facility] [id number] [facility] 084 [place] 2019-12-05 2019-12-05 Nurse Nicci Engel [id number] Univers 00:00:00 00:00:00 Triage ARIE 350.1.13.10 it y of HOSPITAL 4.2.7.2.686 [place] as [id number] [facility] 019 [place] 2019-12-02 2019-12-02 Hospital [facility] [id number] Univers 15:00:00 23:59:00 Encounter Rolo Lopez 350.1.13.10 ity of [place] 4.2.7.2.686 [facility] [id number] [facility] 801 [place] 2019-12-02 2019-12-02 Office [facility] [id number] Univers 08:08:46 09:12:13 Visit Rolo Wilkins 350.1.13.10 it y of Surgical 4.2.7.2.686 [place] Specialti [id number] Ca dical es 198 [facility] 2019-12-02 2019-12-02 Outpatient R LOUISE [facility] [id number] Univers 08:15:00 08:15:00 ROLO morales [facility] Results Test Description Test Time Test Comments Results Result Comments Source HEMOGLOBIN A1c 2022-09-27 07:49:42 Test Item Value Reference Range Interpretation Comme nts HEMOGLOBIN A1c (test code = 5.8 % 4.2-5.6 H [employer] 74469) GUIDELINES FOR HGB A1C: PREDIABETES/INC REASED RISK [...] OTHERWISE INDIC ATED, ALL TESTING [facility]FOR[facility], [place] [address] HOPE CASTRO DIRECTOR: Hua ENRIQUE SIMÓN NUMBER [id number] CAP ACCREDITATION N O. [id number] COMPREHENSIVE METABOLIC [id number] 04:12:38 Test Item Value Reference Range Interpretation Comments GLUCOSE (test code = 86 MG/DL 70-99 2216) BUN (test code = 13 MG/DL 6-20 2207) CREATININE (test 0.94 MG/DL 0.80-1.40 code = 2214) eGFR (2020 CKD-EPI) 116 >60 (test code = 31829) ML/MIN/1.73 CALC BUN/CREAT (test 14 RATIO 6-28 code = 2235) SODIUM (test code = 141 MEQ/L 703-414 6784) POTASSIUM (test code 4.1 MEQ/L 3.5-5.4 = [...] code = 27 U/L 50 2218) LIPID [id number] 04:12:38 Test Item Value Reference Range Interpretation [...] MOREINFORMATION , SEE CLIENT ANNOUNCE MENT AT [email or web address] RISK RATIO LDL/HDL 3.89 RATIO <3.55 H (test code = 2237) [id number] 04:12:21 Test Item Value Reference Range Interpretation Comments LIPASE (test code = 2057) 19 U/L 13-60 [id number] 04:12:21 Test Item Value Reference Range Interpretation Comments AMYLASE (test code = 2204) 52 U/L 28-100 CBC W/AUTO DIFF WITH [id number] 02:29:38 Test Item Value Reference Range Interpretation [...] RBCS 0.00 K/UL 0.00-0.11 (test code = 42942) TROPONIN [id number] 05:10:59 Test Item Value Reference Interpretation Comments Range TROPONIN I (test 0.002 ng/mL See_Comment [Automated code = 1051193884) message] The system which generated this result [...] biotin. Lab Interpretation Normal (test code = 32222-6) [facility] [id number] 05:10:59 Test Item Value Reference Interpretation Comments Range TROPONIN I (test 0.002 ng/mL See_Comment [Automated code = 6292854571) message] The system which generated this result [...] biotin. Lab Interpretation Normal (test code = 86122-8) [facility]-[id number] 05:01:11 Test Item Value Reference Interpretation Comments Range D-DIMER (test code = <0.27 See_Comment [Autom ated 8099823088) message] The system which generated this result [...] diagnosis. Lab Interpretation Normal (test code = 45389-8) [facility]-[id number] 05:01:11 Test Item Value Reference Interpretation Comments Range D-DIMER (test code = <0.27 See_Comment [Autom ated 3830083502) message] The system which generated this result [...] diagnosis. Lab Interpretation Normal (test code = 79356-1) [facility] MET[facility]OLIC PANEL (12922)2021-01-08 05:00:35 Test Item Value Reference Range Interpretation Comments NA (test code = 137 mmol/L 135-145 4151595237) K (test code = 4.7 mmol/L 3.5-5.0 1116845740) CL (test code = 102 mmol/L 98-108 4280935056) CO2 TOTAL (test code = 24 mmol/L 23-31 9348004241) AGAP (test code = 2-16 6858584946) BUN (test code = 20 mg/dL 7-23 7698088070) GLUCOSE (test code = 107 mg/dL 70-110 1910670597) CREATININE (test code = 0.86 mg/dL 0.60-1.25 5592563201) TOTAL BILI (test code = 0.7 mg/dL 0.1-1.7 5287603703) CALCIUM (test code = 9.9 mg/dL 8.6-10.6 2508287641) T PROTEIN (test code = 9.3 g/dL 6.3-8.2 H 0903752302) ALBUMIN (test code = 5.1 g/dL 3.5-5.0 H 2980435498) ALK PHOS (test code = 103 U/L 34-122 4854629043) ALTv (test code = 42 U/L 5-50 1742-6) AST(SGOT) (test code = 41 U/L 13-40 H 9593161096) eGFR (test code = mL/min/1.73m2 5640770308) SERGEY (test code = SERGEY) Association of [...] tests). Lab Interpretation Abnormal (test code = 96828-5) [facility]. METABOLIC PANEL (97120)2021-01-08 05:00:35 Test Item Value Reference Range Interpretation Comments NA (test code = 137 mmol/L 135-145 9776055252) K (test code = 4.7 mmol/L 3.5-5.0 8528489983) CL (test code = 102 mmol/L 98-108 5399769441) CO2 TOTAL (test code = 24 mmol/L 23-31 6982309718) AGAP (test code = 2-16 9030438354) BUN (test code = 20 mg/dL 7-23 0879972893) GLUCOSE (test code = 107 mg/dL 70-110 3881875933) CREATININE (test code = 0.86 mg/dL 0.60-1.25 4819933406) TOTAL BILI (test code = 0.7 mg/dL 0.1-1.7 5796789764) CALCIUM (test code = 9.9 mg/dL 8.6-10.6 2032068111) T PROTEIN (test code = 9.3 g/dL 6.3-8.2 H 5043407309) ALBUMIN (test code = 5.1 g/dL 3.5-5.0 H 9842911899) ALK PHOS (test code = 103 U/L 34-122 6775959117) ALTv (test code = 42 U/L 5-50 1742-6) AST(SGOT) (test code = 41 U/L 13-40 H 5864578915) eGFR (test code = mL/min/1.73m2 1474929792) SERGEY (test code = SERGEY) Association of [...] tests). Lab Interpretation Abnormal (test code = 59917-7) [facility] WITH [id number] 04:45:37 Test Item Value Reference Range Interpretation Comments WBC (test code = See_Comment [Automated 6169-2) message] The sy stem which generated this result transmitted reference range : 4.20 - 10.70 10*3/?L. The reference range was not used to interpret this result as normal/abnormal . RBC (test code = See_Comment [Automated 896-8) message] The sy stem which generated this [...] RDW-SD (test code = 41.2 fL 38.5-51.6 04432-7) RDW-CV (test code = 12.6 % 12.1-15.4 788-0) PLT (test code = See_Comment [Automated 777-3) message] The sy stem which generated this result transmitted reference range : 150 - 328 10*3/ ?L. The reference r juan manuel was not used to interpret this result as normal/abnormal . MPV (test code = 11.9 fL 9.8-13.0 01152-3) NRBC/100 WBC (test See_Comment [Automat ed code = 5034630969) message] The system which generated this result transmitted reference range : 0.0 - 10.0 /100 WBCs. The refer ence range was not u sed to interpret th is result as normal/abnormal . NRBC x10^3 (test code <0.01 See_Comment [Auto mated = 7495682865) message] The s ystem which generated this result transmitted reference range : 10*3/?L. The reference range was not used to interpret this result as normal/abnormal . GRAN MAT (NEUT) % 73.5 % (test code = 770-8) IMM GRAN % (test code 0.40 % = 2860763693) LYMPH % (test code = 18.5 % 736-9) MONO % (test code = 6.8 % 5905-5) EOS % (test code = 0.2 % 713-8) BASO % (test code = 0.6 % 706-2) GRAN MAT x10^3(ANC) 7.50 10*3/uL 1.99-6.95 H (test code = 0858560842) IMM GRAN x10^3 (test 0.04 10*3/uL 0.00-0.06 code = 6057397374) LYMPH x10^3 (test code 1.89 10*3/uL 1.09-3.23 = 731-0) MONO x10^3 (test code 0.69 10*3/uL 0.36-1.02 = 742-7) EOS x10^3 (test code = <0.03 0.06-0.53 L 711-2) BASO x10^3 (test code 0.06 10*3/uL 0.01-0.09 = 704-7) Lab Interpretation Abnormal (test code = 19800-7) [facility] WITH [id number] 04:45:37 Test Item Value Reference Range Interpretation [...] RDW-SD (test code = 41.2 fL 38.5-51.6 38160-0) RDW-CV (test code = 12.6 % 12.1-15.4 788-0) PLT (test code = See_Comment [Automated 777-3) message] The sy stem which generated this result transmitted reference range : 150 - 328 10*3/ ?L. The reference r juan manuel was not used to interpret this result as normal/abnormal . MPV (test code = 11.9 fL 9.8-13.0 75509-1) NRBC/100 WBC (test See_Comment [Automat ed code = 1749272695) message] The system which generated this result transmitted reference range : 0.0 - 10.0 /100 WBCs. The refer ence range was not u sed to interpret th is result as normal/abnormal . NRBC x10^3 (test code <0.01 See_Comment [Auto mated = 8704869281) message] The s ystem which generated this result transmitted reference range : 10*3/?L. The reference range was not used to interpret this result as normal/abnormal . GRAN MAT (NEUT) % 73.5 % (test code = 770-8) IMM GRAN % (test code 0.40 % = 0775052091) LYMPH % (test code = 18.5 % 736-9) MONO % (test code = 6.8 % 5905-5) EOS % (test code = 0.2 % 713-8) BASO % (test code = 0.6 % 706-2) GRAN MAT x10^3(ANC) 7.50 10*3/uL 1.99-6.95 H (test code = 7864196315) IMM GRAN x10^3 (test 0.04 10*3/uL 0.00-0.06 code = 9951992968) LYMPH x10^3 (test code 1.89 10*3/uL 1.09-3.23 = 731-0) MONO x10^3 (test code 0.69 10*3/uL 0.36-1.02 = 742-7) EOS x10^3 (test code = <0.03 0.06-0.53 L 711-2) BASO x10^3 (test code 0.06 10*3/uL 0.01-0.09 = 704-7) Lab Interpretation Abnormal (test code = 97112-6) [facility] <3 VW [id number] 16:02:17 Fracture remains in stable positionUnHouston Methodist The Woodlands HospitalLactic Acid Whole [id number] 03:25:00 Test Item Value Reference Range Interpretation Comments LACTIC ACID (test code = 1.30 mmol/L 2914400111) [facility]stUrinalysis2020-08-08 01:33:00 Test Item Value Reference Range Interpretation Comments APPEARANCE (test code = Clear Clear 5332607545) COLOR (test code = Yellow Yellow 4476691049) PH (test code = 4.8-8.0 8186958078) SP GRAVITY (test code = 1.003-1.030 4010610636) GLU U QUAL (test code = Normal Normal 9904106400) BLOOD (test code = Negative Negative 3347239308) KETONES (test code = Negative Negative 6414294726) PROTEIN (test code = 30 mg/dL Negative A 2887-8) UROBILIN (test code = Normal Normal 1855498101) BILIRUBIN (test code = Negative Negative 3715556231) NITRITE (test code = Negative Negative 5867413990) LEUK STACY (test code = Negative Negative 9463919321) RBC/HPF (test code = See_Comment [Autom ated message] 8897917964) The system [employer] generated this result transmitted ref erence range: 0 - 3 HP F. The reference range was not used to int erpret this result as normal/abnormal . WBC/HPF (test code = <1 See_Comment [Autom ated message] 4636411434) The system [employer] generated this result transmitted ref erence range: 0 - 5 HP F. The reference range was not used to int erpret this result as normal/abnormal . BACTERIA (test code = Negative Negative 8600956176) MUCOUS (test code = Moderate Negative LPF A 8584209377) Lab Interpretation (test Abnormal code = 66804-4) [facility] (NA, K, CL, CO2, GLUCOSE, BUN, CREATININE, CA)2019-12-06 01:25:00 Test Item Value Reference Range Interpretation Comments NA (test code = 138 mmol/L 135-145 5582611433) K (test code = 3.9 mmol/L 3.5-5 2100265007) CL (test code = 101 mmol/L 98-108 1167853048) CO2 TOTAL (test code = 25 mmol/L 23-31 2311071129) AGAP (test code = 2-16 7056588209) BUN (test code = 12 mg/dL 7-23 5882659270) GLUCOSE (test code = 119 mg/dL 70-110 H 2344602673) CREATININE (test code = 0.77 mg/dL 0.6-1.25 2711922221) CALCIUM (test code = 10.4 mg/dL 8.6-10.6 5802426237) eGFR Calculation mL/min/1.73m2 (Non-) (test code = 4564014286) eGFR Calculation mL/min/1.73m2 () (test code = 6094206674) SERGEY (test code = SERGEY) Association of [...] tests). Lab Interpretation Abnormal (test code = 48068-8) [facility] (ALB, T.PRO, BILI T, BU/BC, ALT, AST, ALK PHOS)2019-12-06 01:25:00 Test Item Value Reference Range Interpretation Comments TOTAL BILI (test code = 6655148619) 1.0 mg/dL 0.1-1.1 BILI UNCON (test code = 6887453815) 0.9 mg/dL 0.1-1.1 BILI CONJ (test code = 4772461619) 0.0 mg/dL 0-0.3 T PROTEIN (test code = 9512118739) 9.1 g/dL 6.3-8.2 H ALBUMIN (test code = 7996087613) 5.1 g/dL 3.5-5 H ALK PHOS (test code = 2476896207) 101 U/L 34-122 ALTv (test code = 1742-6) 46 U/L 5-50 AST(SGOT) (test code = 0565509413) 34 U/L 13-40 Lab Interpretation (test code = Abnormal 68519-6) [facility] with [id number] 01:21:00 Test Item Value Reference Range Interpretation Comments WBC (test code = See_Comment [Automated 8090-2) message] The sy stem which generated this [...] RDW-SD (test code = 40.2 fL 38.5-51.6 36344-3) RDW-CV (test code = 12.5 % 12.1-15.4 788-0) PLT (test code = See_Comment H [Automated 777-3) message] The sy stem which generated this result transmitted reference range : 150 - 328 10*3/ ?L. The reference r juan manuel was not used to interpret this result as normal/abnormal . MPV (test code = 11.2 fL 9.8-13 70057-3) NRBC/100 WBC (test See_Comment [Automat ed code = 8829900332) message] The system which generated this result transmitted reference range : 0.0 - 10.0 /100 WBCs. The refer ence range was not u sed to interpret th is result as normal/abnormal . NRBC x10^3 (test code <0.01 See_Comment [Auto mated = 8623716083) message] The s ystem which generated this result transmitted reference range : 10*3/?L. The reference range was not used to interpret this result as normal/abnormal . GRAN MAT (NEUT) % 74.8 % (test code = 770-8) IMM GRAN % (test code 0.20 % = 2603120145) LYMPH % (test code = 18.9 % 736-9) MONO % (test code = 5.4 % 5905-5) EOS % (test code = 0.4 % 713-8) BASO % (test code = 0.3 % 706-2) GRAN MAT x10^3(ANC) 6.97 10*3/uL 1.99-6.95 H (test code = 7741691031) IMM GRAN x10^3 (test <0.03 0-0.06 code = 4677164351) LYMPH x10^3 (test code 1.76 10*3/uL 1.09-3.23 = 731-0) MONO x10^3 (test code 0.50 10*3/uL 0.36-1.02 = 742-7) EOS x10^3 (test code = 0.04 10*3/uL 0.06-0.53 L 711-2) BASO x10^3 (test code 0.03 10*3/uL 0.01-0.09 = 704-7) Lab Interpretation Abnormal (test code = 84148-4) [facility] Whole [id number] 01:02:00 Test Item Value Reference Range Interpretation Comments LACTIC ACID (test code = 2.92 mmol/L 7135564883) [facility]
[2022-12-03 22:35] LABS: Absolute Lymphocytes (CBC) 2.2 K/uL (0.7-4.9); Hematocrit 46.5 % (39.6-49.0); Lymphocytes % 20.8 % (15.3-44.8); MCV 89.8 fL (80-100); MPV 9.5 fL (7.6-11.3); Platelets 290 thou/uL (152-406); RBC Red Blood Cell Count 5.18 M/uL (4.33-5.43)
[2022-12-03 22:59] LABS: Magnesium 2.1 mg/dL (1.6-2.4); Potassium 3.7 mEq/L (3.5-5.1); Troponin High Sensitivity 3.4 pg/mL (<58.9)
[2022-12-03 23:09] LABS: Thyroid Stimulating Hormone 11.1 uIU/mL (0.358-3.740)
--- NOTE | 2022-12-03 23:38 | ER ---
Nurse's Notes [facility] Name: Keny Kyle Age: 22 yrs Sex: Male : 2000 Arrival Date: 12/03/2022 Time: 19:58 Bed 10 Private MD: Diagnosis: Anxiety disorder, unspecified;Abnormal results of thyroid function studies Presentation: 12/03 20:08 Chief complaint: Patient states: feel like heart is racing, he was eating and he iw started to feel sweaty, his heart started beating fast, does not feel like his normal anxiety attack. Coronavirus screen: At this time, the client does not indicate any symptoms associated with coronavirus-19. Ebola Screen: Patient negative for fever greater than or equal to 101.5 degrees Fahrenheit, and additional compatible Ebola Virus Disease symptoms Patient denies exposure to infectious person. Patient denies travel to an Ebola-affected area in the 21 days before illness onset. No symptoms or risks identified at this time. Initial Sepsis Screen: Does the patient meet any 2 criteria? No. Patient's initial sepsis screen is negative. Does the patient have a suspected source of infection? No. Patient's initial sepsis screen is negative. Risk Assessment: Do you want to hurt yourself or someone else? Patient reports no desire to harm self or others. Onset of symptoms was December 03, 2022. 20:08 Method Of Arrival: Wheelchair iw 20:08 Acuity: MARI 3 iw Historical: - Allergies: 20:09 No Known Allergies; iw - Home Meds: 20:09 None [Active]; iw - PMHx: 20:09 anixety attacks; broken foot/infection; pre-diabetic; iw - PSHx: 20:09 None; iw - Immunization history:: Client reports having NOT received the Covid vaccine. - Social history:: Smoking status: Patient denies any tobacco usage or history of. Screenin:00 [facility] ED Fall Risk Assessment (Adult) History of falling in the last 3 months, pf1 including since admission No falls in past 3 months (0 pts) Confusion or Disorientation No (0 pts) Intoxicated or Sedated No (0 pts) Impaired Gait No (0 pts) Mobility Assist Device Used No (0 pt) Altered Elimination No (0 pt) Score/Fall Risk Level 0 - 2 = Low Risk Oriented to surroundings, Maintained a safe environment, Educated pt \T\ family on fall prevention, incl call for assistance when getting out of bed, Assessed \T\ reinforced patient's understanding of fall precautions, Provided non-skid footwear, Hourly rounding (assess needs \T\ fall precautionary measures) done, Used ambulatory aids as needed (educated on \T\ assisted with), Used gait belt as appropriate. 22:00 Abuse screen: Denies threats or abuse. Nutritional screening: No deficits noted. pf1 Tuberculosis screening: No symptoms or risk factors identified. Assessment: 21:50 General: Appears in no apparent distress. comfortable, well groomed, well developed, pf1 Behavior is cooperative, appropriate for age, anxious. 21:50 Pain: Denies pain. Neuro: No deficits noted. Level of Consciousness is awake, alert, pf1 obeys commands, Oriented to person, place, time, situation. Cardiovascular: Reports diaphoresis, with heart racing sensation. Respiratory: No deficits noted. Airway is patent Respiratory effort is even, unlabored, Respiratory pattern is regular, symmetrical. GI: No deficits noted. No signs and/or symptoms were reported involving the gastrointestinal system. : No deficits noted. No signs and/or symptoms were reported regarding the genitourinary system. EENT: No deficits noted. No signs and/or symptoms were reported regarding the EENT system. 23:00 Reassessment: Patient appears in no apparent distress at this time. Patient and/or pf1 family updated on plan of care and expected duration. Pain level reassessed. Patient is alert, oriented x 3, equal unlabored respirations, skin warm/dry/pink. Vital Signs: 20:08 BP 146 / 89; Pulse 116; Resp 22; Temp 98.1; Pulse Ox 100% on R/A; Weight 123.83 kg; iw Height 5 ft. 9 in. ; Pain 0/10; 23:52 BP 127 / 81; Pulse 74; Resp 19; Pulse Ox 98% ; bc6 20:08 Body Mass Index 40.31 (123.83 kg, 175.26 cm) iw 20:08 Pain Scale: Adult iw ED Course: 20:03 Patient arrived in ED. es 20:09 Triage completed. iw 20:09 Arm band placed on. iw 20:20 Barb Thompson PA-C is PHCP. sb4 20:20 Brett Kline MD is Attending Physician. sb4 21:47 Patient has correct armband on for positive identification. Bed in low position. Call pf1 light in reach. Side rails up X 1. 22:23 TSH Sent. bc6 22:24 Basic Metabolic Panel Sent. bc6 22:24 CBC with Diff Sent. bc6 22:24 D-Dimer Sent. bc6 22:24 Magnesium Sent. bc6 22:24 NT PRO-BNP Sent. bc6 22:24 Troponin HS Sent. bc6 22:24 Inserted saline lock: 22 gauge in right antecubital area, using aseptic technique. bc6 22:52 XRAY Chest (1 view) In Process Unspecified. EDMS 23:47 Arnulfo Smith DO is Referral Physician. sb4 23:47 Deven Narayan MD is Referral Physician. sb4 23:54 Provided Education on: medication administration. pf1 23:54 IV discontinued, intact, bleeding controlled, No redness/swelling at site. Pressure pf1 dressing applied. 23:54 No provider procedures requiring assistance completed. pf1 Administered Medications: No medications were administered Medication: 23:54 VIS not applicable for this client. pf1 Outcome: 23:38 Discharge ordered by MD. sb4 23:54 Discharged to home ambulatory, with family. pf1 23:54 Condition: improved 23:54 Discharge instructions given to patient, family, Instructed on discharge instructions, follow up and referral plans. Demonstrated understanding of instructions, follow-up care. 23:54 Patient left the ED. pf1 Signatures: Dispatcher [employer] EDMS Sherrill Oseguera Irene, RN Barb Rosario PA-C PA-Doris sb4 Leeann Han RN RN pf1 Fatuma Diaz 6
--- NOTE | 2022-12-03 23:38 | EDPHYS ---
Physician Documentation [facility] Name: Keny Kyle Age: 22 yrs Sex: Male : 2000 Arrival Date: 12/03/2022 Time: 19:58 Bed 10 Private MD: ED Physician Brett Kline HPI: 12/03 21:53 This 22 yrs old Male presents to ER via Wheelchair with complaints of sb4 Palpitations, Dizziness. 21:53 The patient presents with a history of heart racing. sb4 23:49 patient with frequent anxiety attacks presents with complaints of dizziness, heart sb4 racing, chest pain, diaphoresis. He states that these are not like his typical anxiety attacks. He has been prescribed hydroxyzine in the past but will not fill it. He is resting comfortably during my assessment. Historical: - Allergies: 20:09 No Known Allergies; iw - Home Meds: 20:09 None [Active]; iw - PMHx: 20:09 anixety attacks; broken foot/infection; pre-diabetic; iw - PSHx: 20:09 None; iw - Immunization history:: Client reports having NOT received the Covid vaccine. - Social history:: Smoking status: Patient denies any tobacco usage or history of. ROS: 23:49 Constitutional: Negative for fever, chills, and weight loss, Eyes: Negative for injury, sb4 pain, redness, and discharge, ENT: Negative for injury, pain, and discharge, Respiratory: Negative for shortness of breath, cough, wheezing, and pleuritic chest pain, Abdomen/GI: Negative for abdominal pain, nausea, vomiting, diarrhea, and constipation, MS/Extremity: Negative for injury and deformity, Skin: Negative for injury, rash, and discoloration. 23:49 Cardiovascular: Positive for chest pain, palpitations, Negative for edema, orthopnea. 23:49 Psych: Positive for anxiety, Negative for depression, homicidal ideation, suicide gesture, suicidal ideation. 23:49 All other systems are negative. Exam: 23:49 Constitutional: This is a well developed, well nourished patient who is awake, alert, sb4 and in no acute distress. Head/Face: Normocephalic, atraumatic. Eyes: Extra-ocular motions intact. Periorbital areas with no swelling, redness, or edema. Cardiovascular: Regular rate and rhythm with a normal S1 and S2. Respiratory: Lungs have equal breath sounds bilaterally, clear to auscultation and percussion. No rales, rhonchi or wheezes noted. No increased work of breathing, no retractions or nasal flaring. Abdomen/GI: Soft, non-tender, no distension. Back: No spinal tenderness. No costovertebral tenderness. Full range of motion. Skin: Warm, dry with normal turgor. Normal color with no rashes, no lesions, and no evidence of cellulitis. MS/ Extremity: Pulses equal, no cyanosis. Neurovascular intact. Full, normal range of motion. Neuro: Awake and alert, GCS 15, oriented to person, place, time, and situation. Cranial nerves II-XII grossly intact. Motor strength 5/5 in all extremities. Sensory grossly intact. Cerebellar exam normal. Normal gait. 23:54 ECG was reviewed by the Attending Physician. sb4 Vital Signs: 20:08 BP 146 / 89; Pulse 116; Resp 22; Temp 98.1; Pulse Ox 100% on R/A; Weight 123.83 kg; iw Height 5 ft. 9 in. ; Pain 0/10; 23:52 BP 127 / 81; Pulse 74; Resp 19; Pulse Ox 98% ; bc6 20:08 Body Mass Index 40.31 (123.83 kg, 175.26 cm) iw 20:08 Pain Scale: Adult iw MDM: 20:20 Patient medically screened. sb4 23:49 Differential diagnosis: arrythmia, anxiety, PE, ACS, thyroid abnormality, electrolyte sb4 abnormality. Data reviewed: vital signs, nurses notes, lab test result(s), EKG, radiologic studies, and as a result, I will discharge patient. Counseling: I had a detailed discussion with the patient and/or guardian regarding: the historical points, exam findings, and any diagnostic results supporting the discharge/admit diagnosis, the presence of at least one elevated blood pressure reading (>120/80) during this emergency department visit, lab results, radiology results, the need for outpatient follow up, for definitive care, a psychiatrist, to return to the emergency department if symptoms worsen or persist or if there are any questions or concerns that arise at home. 12/03 21:52 Order name: Basic Metabolic Panel; Complete Time: 23:28 sb4 12/03 21:52 Order name: CBC with Diff; Complete Time: 22:43 sb4 12/03 21:52 Order name: D-Dimer; Complete Time: 22:49 sb4 12/03 21:52 Order name: Magnesium; Complete Time: 23:28 sb4 12/03 21:52 Order name: NT PRO-BNP; Complete Time: 23:28 sb4 12/03 21:52 Order name: Troponin HS; Complete Time: 23:28 sb4 12/03 21:52 Order name: TSH; Complete Time: 23:28 sb4 12/03 23:12 Order name: T4 Free; Complete Time: 23:28 EDMS 12/03 21:52 Order name: XRAY Chest (1 view) sb4 12/03 21:52 Order name: EKG; Complete Time: 21:53 sb4 12/03 21:52 Order name: Cardiac monitoring; Complete Time: 23:33 sb4 12/03 21:52 Order name: EKG - Nurse/Tech; Complete Time: 22:15 sb4 12/03 21:52 Order name: IV Saline Lock; Complete Time: 22:24 sb4 12/03 21:52 Order name: Labs collected and sent; Complete Time: 22:24 sb4 12/03 21:52 Order name: O2 Per Protocol; Complete Time: 23:33 sb4 12/03 21:52 Order name: O2 Sat Monitoring; Complete Time: 23:33 sb4 12/03 23:29 Order name: Vital Signs; Complete Time: 23:53 sb4 EC:54 Rate is 105 beats/min. Rhythm is regular, Sinus tachycardia. AL interval is normal at sb4 130 msec. QRS interval is normal at 80 msec. QT interval is normal at 316 msec. No Q waves. T waves are Normal. No ST changes noted. Clinical impression: Normal ECG. Interpreted by me. Reviewed by me. Administered Medications: No medications were administered Disposition: 12/04 07:07 Co-signature as Attending Physician, Brett Kline MD I agree with the assessment sp4 and plan of care. I reviewed the patient's care provided by the Advanced Practice Provider and agree with the diagnosis and treatment plan. Disposition Summary: 12/03/22 23:38 Discharge Ordered Location: Home sb4 Problem: an ongoing problem sb4 Symptoms: have improved sb4 Condition: Stable sb4 Diagnosis - Anxiety disorder, unspecified sb4 - Abnormal results of thyroid function studies sb4 Followup: sb4 - With: Arnulfo Smith DO - When: 2 - 3 days - Reason: Recheck today's complaints, Re-evaluation by your physician Followup: sb4 - With: Deven Narayan MD - When: 2 - 3 days - Reason: Recheck today's complaints, Re-evaluation by your physician Discharge Instructions: - Discharge Summary Sheet sb4 - Panic Attack sb4 Forms: - Medication Reconciliation Form sb4 - Thank You Letter sb4 - Antibiotic Education sb4 - Prescription Opioid Use sb4 - Patient Portal Instructions sb4 Signatures: Dispatcher [employer] Arelis Li RN RN iw Brown, Sophia, PA-C PA-C sb4 Brett Kline MD MD sp4
[2022-12-04 00:10] VITALS: TEMP 98.1
[2022-12-04 00:16] VITALS: BP 127/81; O2SAT 98
--- NOTE | 2022-12-04 12:16 | RAD REPORT ---
EXAM DESCRIPTION: RAD - Chest Single View - 12/03/2022 10:50 pm CLINICAL HISTORY: CHEST PAIN TECHNIQUE: Frontal view of the chest. COMPARISON: XR Chest dated 10/24/2021 FINDINGS: Lungs: Unremarkable. No consolidation. Pleural space: Unremarkable. No pneumothorax. Heart: Unremarkable. No cardiomegaly. Mediastinum: Unremarkable. Bones/joints: Unremarkable. IMPRESSION: No acute disease. Electronically signed by: Bridger Snyder MD 12/03/2022 11:06 PM CDT Due to temporary technical issues with the PACS/Fluency reporting system, reports are being signed by the in house radiologist without review as a courtesy to ensure prompt reporting. The interpreting r adiologist is fully responsible for the content of the report.
--- NOTE | 2022-12-04 13:01 | EKG ---
Test Date: 2022-12-03 Test Time: 20:16:23 Ornamenter: ELIDIA MEASUREMENT RESULTS: Intervals: Rate: 105 DC: 130 QRSD: 80 QT: 316 QTc: 417 [place]: P: 56 DC: 130 QRS: 89 T: -12 INTERPRETIVE STATEMENTS: Sinus tachycardia Nonspecific T wave abnormality Abnormal ECG Compared to ECG 12/02/2022 05:00:39 T-wave abnormality now present Sinus rhythm no longer present Right-axis deviation no longer present ST (T wave) deviation no longer present Electronically Signed On 12-04-22 12:59:03 CDT by Dano Bui
== END 2022-12-03 23:54 | disposition home or self-care (01) ==
LOC: ER 19:58
DX: F41.9 Anxiety disorder, unspecified (principal); R94.6 Abnormal results of thyroid function studies
CPT/HCPCS: 36415; 71045; 80048; 83735; 83880; 84439; 84443; 84484; 85025; 85379; 93005; 99283